=== PATIENT | female | born 1960 | race Caucasian/White ===

== ENCOUNTER 2019-06-15 23:00 | Inpatient (IN) | payer BC, SELFPAY ==
[2019-06-15 23:06] VITALS: BP 170/99; PULSE 107; RESP 25; TEMP 36.8; O2SAT 72; BMI 34.9
--- NOTE | 2019-06-15 23:11 | ED_ITS ---
Entered by Thi Simon, acting as scribe for Keagan Lopez DO HPI - SOB/Dyspnea General: Chief Complaint: Shortness of Breath/Dyspnea Stated Complaint: sob Time Seen by Provider: 06/15/19 23:11 Source: family Mode of arrival: wheelchair Limitations: no limitations History of Present Illness: HPI Narrative: 59 yo f came to the er pov with for sob x 2 days. MD elicited complaint: shortness of breath, cough and chest pain Onset (ago): day(s) (2 days ago) Timing: constant Severity: moderate Exacerbating factors: nothing Relieving factors: nothing Associated symptoms: Reports chest pain and orthopnea; Deny abdominal pain, dizziness, fever(s), nausea, palpitations or vomiting Treatment prior to arrival: none Related Data: Home oxygen amount: none Review of Systems Const: Denies: fever Eyes: Denies: change in vision or blurry vision ENMT: Denies: painful swallowing, swelling of lips/tongue, bleeding gums, dental pain, Change in hearing, nose bleeds, post nasal drip or facial/sinus pain Card: Reports: chest pain and shortness of breath when lying down; Denies: palpitations Resp: Reports: shortness of breath, non-productive cough and wheezing GI: Denies: abdominal pain, nausea or vomiting : Denies: painful urination, urinary frequency, urinary urgency or blood in urine Musc: Denies: neck pain, back pain, redness or joint warmth Skin/Breast: Denies: rash, itching or redness Neuro: Denies: dizziness Psych: Denies: anxiety, visual hallucinations or auditory hallucinations PFSH ED PFSH: Statuses (acute, chronic, etc) shown below reflect problem list status as previously entered and may not be historically accurate Social History Smoking and tobacco status: never smoked Physical Exam Const: COMMON NORMALS: alert GENERAL APPEARANCE: well developed ORIENTA TION/CONSCIOUSNESS: Yes awake, Yes oriented to person, Yes oriented to place and Yes oriented to time HENMT: COMMON NORMALS: normocephalic, external ears normal, external nose normal and moist oral mucous membranes HEAD & SCALP: normocephalic; no scalp tenderness FACE & SINUS: normal facial exam NOSE: external nose normal and no nasal discharge EXTERNAL EAR: Yes external ears normal MOUTH: tongue normal THROAT: posterior oropharynx normal; no peritonsillar mass Eye: COMMON NORMALS: PERRL, EOMs intact bilaterally and conjunctivae normal EYELID: eyelids normal CONJUNCTIVA: Yes conjunctivae normal PUPIL: Yes PERRL Neck/C-Spine: COMMON NORMALS: full ROM GENERAL: No anterior neck swelling and No tracheal deviation CERVICAL SPINE: Yes normal cervical lordosis, No cervical spine tenderness, No step off deformity, No paracervical muscle tenderness and No paracervical muscle spasm Chest: COMMONS NORMALS: inspection of chest normal CHEST: Yes symmetrical chest wall rise and No tenderness Resp: COMMON NORMALS: negative for clear to auscultation bilaterally EFFORT & INSPECTION: Yes tachypneic, Yes respiratory distress, No retractions, Yes uses accessory muscles and No tracheal deviation AUSCULTATION: not clear to auscultation bilaterally, no rhonchi, wheezes and diminished lung sounds Cardio: COMMON NORMALS: negative for regular rate and negative for regular rhythm RATE: abnormal rate RHYTHM: abnormal rhythm HEART SOUNDS: no murmurs PERIPHERAL PULSES: radial pulses present GI: INSPECTION: No abdominal distension AUSCULTATION: No hyperactive bowel sounds and No hypoactive bowel sounds PALPATION: No tender, No guarding and No rigid PERCUSSION: no dullness to percussion and no tympanic to percussion : COMMON NORMALS: Yes no CVA tenderness BLADDER/KIDNEY EXAM: Yes no CVA tenderness Back/Pelvis: COMMON NORMALS: no CVA tenderness PELVIS: Yes no pain with anterior-posterior compression and Yes no pain with lateral compression Neuro: SENSORIUM/ORIENTATION: Yes alert, Yes oriented to person, Yes oriented to place and Yes oriented to time Psych: COMMON NORMALS: mental status grossly normal and speech normal SPEECH: Yes normal speech Skin: COMMON NORMALS: no rashes or lesions noted GENERAL SKIN EXAM: no rashes or lesions noted Course Vital Signs: Vital signs: Vital Signs Temperature 98.3 F 06/15/19 23:06 Pulse Rate 93 06/16/19 02:11 Respiratory Rate 18 06/16/19 02:11 Blood Pressure 151/130 06/16/19 02:11 Pulse Oximetry 100 06/16/19 02:11 MDM - SOB/Dyspnea Lab Data: Labs: Lab Results 01/04/20 01/04/20 01/04/20 Range/Units 23:16 23:46 23:46 WBC 8.1 (4.0-10.0) 10^3/ uL RBC 4.37 (4.1-5.3) 10^6/u L Hgb 12.2 (11.5-15.3) g/dL Hct 38.3 (37.0-47.0) % MCV 87.6 (81-99) fL MCH 27.9 L (28.0-34.0) pg MCHC 31.9 (30.0-36.0) g/dL RDW 13.5 (12.1-15.1) % Plt Count 214 (130-400) 10^3/c mm MPV 11.7 H (7.4-10.4) fL Neut % (Auto) 64.8 % Lymph % (Auto) 26.5 % [place] % (Auto) 4.1 % Eos % (Auto) 2.5 % Baso % (Auto) 1.0 % Neut # (Auto) 5.2 (1.8-7.7) 10^3/u L Lymph # (Auto) 2.1 (0.8-4.8) 10^3/u L [place] # (Auto) 0.3 (0.2-0.9) 10^3/u L Eos # (Auto) 0.2 (0.0-0.8) 10^3/u L Baso # (Auto) 0.1 (0.0-0.1) 10^3/u L Nucleated RBC % (a uto) 0 % Nucleated RBCs # 0.0 /100WBC Sodium 137 (136-145) mmol/L Potassium 3.6 (3.5-5.1) mmol/L Chloride 100 (98-107) mmol/L Carbon Dioxide 21 L (22-29) mmol/L Anion Gap 19.6 H (5-19) BUN 17 (6-20) mg/dL Creatinine 1.0 H (0.5-0.9) mg/dL GFR Calculation 56.7 L (90-130) mL/min Glucose 575 H* (74-109) mg/dL POC Glucose 455 (70-110) mg/dL Lactate (0.5-2.2) mmol/L Calcium 9.3 (8.6-10.0) mg/Dl Total Bilirubin 0.4 (0.15-1.2) mg/dL AST 36 H (0-32) U/L ALT 35 H (0-33) U/L Alkaline Phosphata se 72 (35-105) IU/L Troponin T Baselin e (0-10) ng/mL NT-Pro-B Natriuret Pep 783 H (0-125) pg/mL Total Protein 6.8 (6.6-8.7) g/dL Albumin 4.6 (3.5-5.2) g/dL Globulin 2.2 (1.3-4.6) g/dL Urine Color (Yellow) Urine Appearance (CLEAR) Urine pH (5-7) Ur Specific Gravit y (1.005-1.030) Urine Protein (Negative) Urine Glucose (UA) (Normal) Urine Ketones (Negative) Urine Occult Blood (Negative) Urine Nitrate (Negative) Urine Bilirubin (NEGATIVE) Urine Urobilinogen (Negative) mg/dL Ur Leukocyte Jeana ase (Negative) Urine RBC (0-2) /hpf Urine WBC (0-5) /hpf Ur Squamous Epith Cells (0-5) Urine Bacteria (NONE) 06/15/19 06/15/19 06/16/19 Range/Units 23:46 23:50 00:28 WBC (4.0-10.0) 10^3/ uL RBC (4.1-5.3) 10^6/u L Hgb (11.5-15.3) g/dL Hct (37.0-47.0) % MCV (81-99) fL MCH (28.0-34.0) pg MCHC (30.0-36.0) g/dL RDW (12.1-15.1) % Plt Count (130-400) 10^3/c mm MPV (7.4-10.4) fL Neut % (Auto) % Lymph % (Auto) % [place] % (Auto) % Eos % (Auto) % Baso % (Auto) % Neut # (Auto) (1.8-7.7) 10^3/u L Lymph # (Auto) (0.8-4.8) 10^3/u L [place] # (Auto) (0.2-0.9) 10^3/u L Eos # (Auto) (0.0-0.8) 10^3/u L Baso # (Auto) (0.0-0.1) 10^3/u L Nucleated RBC % (a uto) % Nucleated RBCs # /100WBC Sodium (136-145) mmol/L Potassium (3.5-5.1) mmol/L Chloride (98-107) mmol/L Carbon Dioxide (22-29) mmol/L Anion Gap (5-19) BUN (6-20) mg/dL Creatinine (0.5-0.9) mg/dL GFR Calculation (90-130) mL/min Glucose (74-109) mg/dL POC Glucose (70-110) mg/dL Lactate 2.7 H (0.5-2.2) mmol/L Calcium (8.6-10.0) mg/Dl Total Bilirubin (0.15-1.2) mg/dL AST (0-32) U/L ALT (0-33) U/L Alkaline Phosphata se (35-105) IU/L Troponin T Baselin e 29 H (0-10) ng/mL NT-Pro-B Natriuret Pep (0-125) pg/mL Total Protein (6.6-8.7) g/dL Albumin (3.5-5.2) g/dL Globulin (1.3-4.6) g/dL Urine Color Yellow (Yellow) Urine Appearance Hazy A (CLEAR) Urine pH 5 (5-7) Ur Specific Gravit y 1.010 (1.005-1.030) Urine Protein 2+ H (Negative) Urine Glucose (UA) 4+ H (Normal) Urine Ketones Negative (Negative) Urine Occult Blood 2+ H (Negative) Urine Nitrate Negative (Negative) Urine Bilirubin Neg (NEGATIVE) Urine Urobilinogen Norm (Negative) mg/dL Ur Leukocyte Jeana ase Negative (Negative) Urine RBC 10-15 H (0-2) /hpf Urine WBC 5-10 H (0-5) /hpf Ur Squamous Epith Cells 0-4 H (0-5) Urine Bacteria 2+ H (NONE) Critical Care Time Critical Care Time: Critical Care Time: Yes Total Critical Care Time: 40 Attestation: This case had a high probability of a clinically significant, sudden, or life threatening deterioration of this patient's condition which required my full and direct attention, intervention and personal management. 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
[2019-06-15 23:19] LABS: Glucose Point of Care 455 mg/dL (70-110)
--- NOTE | 2019-06-15 23:23 | XRR_ITS ---
PROCEDURE INFORMATION: Exam: XR Chest, 1 View Exam date and time: 06/15/2019 11:40 PM Age: 59 years old Clinical indication: Chest pain; Additional info: Cp TECHNIQUE: Imaging protocol: XR of the chest Views: 1 view. COMPARISON: No relevant prior studies available. FINDINGS: Lungs: Increased interstitial markings and areas of haziness in the lung bases. Probable minimal Ramin B lines in the right lateral lung base. Slight bilateral perihilar interstitial marking prominence. No consolidation. Pleural space: Minimal fluid in the minor fissure. Possible minimal blunting of the right lateral angle. No pneumothorax. Heart/Mediastinum: No cardiomegaly. Bones/joints: Mild right convexity of the thoracic spine. No visible acute fracture. XR/XR chest 1V portable [id number] IMPRESSION: Findings suggestive of bilateral pulmonary edema. Minimal pleural fluid in at least the minor fissure. No cardiomegaly.
--- NOTE | 2019-06-15 23:23 | ECG_ITS ---
Measurements Intervals [place] Rate: 87 P: -10 WV: 166 QRS: -33 QRSD: 137 T: 120 QT: 408 QTc: 494 SINUS RHYTHM WITH FREQUENT SUPRAVENTRICULAR PREMATURE COMPLEXES LEFT AXIS DEVIATION [QRS AXIS < -30] LEFT BUNDLE BRANCH BLOCK No previous ECG available for comparison Electronically Signed On 06-16-2019 11:13:46 BREAKDOWN WORKER by Shirin Metzger M.D. [id number]
[2019-06-15 23:24] VITALS: PULSE 94; RESP 20; O2SAT 96
[2019-06-15 23:36] VITALS: BP 119/73; PULSE 100; RESP 28; O2SAT 94
[2019-06-15 23:39] VITALS: O2SAT 95
[2019-06-15] MEDS: FUROsemide 10 mg/mL SDV 10mL 80 MG IVP (23:43)
[2019-06-15] MEDS: nitroglycerin 1 gm/inch oint Pkt 1 INCH TOPICAL (23:43)
[2019-06-15 23:58] LABS: Basophils # 0.1 10^3/uL (0.0-0.1); Eosinophils # 0.2 10^3/uL (0.0-0.8); Eosinophils % 2.5 %; Hematocrit 38.3 % (37.0-47.0); Hemoglobin 12.2 g/dL (11.5-15.3); Lymphocytes # 2.1 10^3/uL (0.8-4.8); Lymphocytes % 26.5 %; Mean Corpuscular HGB Conc 31.9 g/dL (30.0-36.0); Mean Corpuscular Hemoglobin 27.9 pg (28.0-34.0); Mean Corpuscular Volume 87.6 fL (81-99); Mean Platelet Volume 11.7 fL (7.4-10.4); Monocytes # 0.3 10^3/uL (0.2-0.9); Monocytes % 4.1 %; Neutrophils # 5.2 10^3/uL (1.8-7.7); Neutrophils % 64.8 %; Nucleated Red Blood Cells % 0 %; Platelet Count 214 10^3/cmm (130-400); Red Blood Count 4.37 10^6/uL (4.1-5.3); Red Cell Distribution Width 13.5 % (12.1-15.1); White Blood Count 8.1 10^3/uL (4.0-10.0)
[2019-06-16] VITALS (12 sets, daily range): BP systolic 99–166; BP diastolic 58–130; PULSE 73–105; RESP 16–19; TEMP 36.4–36.9; O2SAT 94–100; BMI 36.1
[2019-06-16 00:11] LABS: Lactate (Lactic Acid level) 2.7 mmol/L (0.5-2.2)
[2019-06-16 00:16] LABS: Troponin(5th) Baseline 29 ng/mL (0-10)
[2019-06-16 00:22] LABS: Alanine Aminotransferase 35 U/L (0-33); Albumin Level 4.6 g/dL (3.5-5.2); Alkaline Phosphatase 72 IU/L (35-105); Anion Gap 19.6 (5-19); Aspartate Amino Transferase 36 U/L (0-32); Blood Urea Nitrogen 17 mg/dL (6-20); Calcium 9.3 mg/Dl (8.6-10.0); Carbon Dioxide 21 mmol/L (22-29); Chloride 100 mmol/L (98-107); Globulin 2.2 g/dL (1.3-4.6); Glomerular Filtration Rate 56.7 mL/min (90-130); NT Pro B Type Natriuretic Pept 783 pg/mL (0-125); Potassium 3.6 mmol/L (3.5-5.1); Sodium 137 mmol/L (136-145); Total Bilirubin 0.4 mg/dL (0.15-1.2); Total Protein 6.8 g/dL (6.6-8.7)
[2019-06-16 00:29] LABS: Glucose 575 mg/dL (74-109)
[2019-06-16 00:49] LABS: Protein Urine 2+ (Negative); Urine Appearance Hazy (CLEAR); Urine Color Yellow (Yellow); pH Urine 5 (5-7)
[2019-06-16 00:50] LABS: Bilirubin Urine Neg (NEGATIVE); Blood Urine 2+ (Negative); Glucose Urine UA 4+ (Normal); Ketones Urine Negative (Negative); Leukocyte Esterase Urine Negative (Negative); Nitrate Urine Negative (Negative); Urobilinogen Urine Norm (Negative)
[2019-06-16 00:52] LABS: Add Urine Culture? Yes; Bacteria Urine 2+; Squamous Epithelial Cell Urine 0-4 (0-5)
--- NOTE | 2019-06-16 01:23 | ECG_ITS ---
Measurements Intervals [place] Rate: 105 P: [place]: 0 QRS: 18 QRSD: 150 T: 206 QT: 363 QTc: 482 ATRIAL FIBRILLATION WITH RAPID VENTRICULAR RESPONSE LEFT BUNDLE BRANCH BLOCK [120+ ms QRS DURATION, 80+ ms Q/S IN V1/V2, 85+ ms R IN I/aVL/V5/V6] No previous ECG available for comparison Electronically Signed On 06-16-2019 13:30:14 HEEL COVER SOFTENER by Shirin Metzger M.D. [id number] f
[2019-06-16 02:04] LABS: Troponin 5 2HR 70.77 ng/mL (0-10)
[2019-06-16 02:07] LABS: Troponin 5 2HR Delta 41.77 ABS# (0-10)
--- NOTE | 2019-06-16 02:29 | PC.NURSE ---
patient request to take off bipap at this time. per ed physician to do a trial without bipap. patient was taken off bipap by this nurse and placed on NC at 4L/min. patients vital signs are BP: 151/130 HR:87 O2: 95% RR:20
--- NOTE | 2019-06-16 05:09 | USCV_ITS ---
Rachel Malhotra Age: 59 Gender: F : 1960 Exam Date: 06/16/2019 08:24 Ordering Phys: Aliyah Diallo MD Technologist: Debra Hernandez Exam Location: [facility] [place] Indication: CHF BP: 141 / 109 HR: 94 Rhythm: Sinus Technical Quality: Suboptimal MEASUREMENTS (Male / Female) Normal Values 2D ECHO LV Diastolic Diameter PLAX 3.7 cm 4.2 - 5.9 / 3.9 - 5.3 cm LV Systolic Diameter PLAX 2.8 cm LV Chamber Size 4.4 cm IVS Diastolic Thickness 1.5 cm 0.6 - 1.0 / 0.6 - 0.9 cm IVS Systolic Thickness 1.7 cm LVPW Diastolic Thickness 1.1 cm 0.6 - 1.0 / 0.6 - 0.9 cm LVPW Systolic Thickness 1.6 cm RV Chamber Size 2.1 cm LVOT Diameter 1.8 cm LV Ejection Fraction 2D Teich 48.9 % LA Diameter 4.0 cm LA Width 3.0 cm LA Height 5.3 cm RA Width 3.0 cm RA Height 5.0 cm Aorta at Sinotubular Diameter 3.1 cm M-MODE LV Diastolic Diameter MM 5.0 cm 4.2 - 5.9 / 3.9 - 5.3 cm LV Systolic Diameter MM 3.5 cm LV Ejection Fraction MM Teich 56.5 % IVS Diastolic Thickness MM 1.4 cm 0.6 - 1.0 / 0.6 - 0.9 cm IVS Systolic Thickness MM 1.6 cm LVPW Diastolic Thickness MM 1.4 cm 0.6 - 1.0 / 0.6 - 0.9 cm LVPW Systolic Thickness MM 1.6 cm Aortic Annulus Diameter 3.0 cm LA Ao Ratio MM 1.4 MV E Point Septal Separation 0.7 cm DOPPLER AV Peak Velocity 147.0 cm/s LVOT Peak Velocity 106.0 cm/s AV Area Cont Eq vti 1.6 cm squared AV Area Cont Eq pk 1.9 cm squared MV Area PHT 4.1 cm squared Mitral E to A Ratio 1.1 MV E' Velocity 6.0 cm/s Mitral E to MV E' Ratio 21.5 Mitral E to LV E' Lateral Ratio 18.9 Mitral E to LV E' Septal Ratio 25.6 TR Peak Velocity 274.0 cm/s TR Peak Gradient 30.0 mmHg TR Mean Velocity 230.7 cm/s TR Mean Gradient 22.4 mmHg TR Velocity Time Integral 63.4 cm TV Peak E Velocity 89.0 cm/s Right Atrial Pressure 3.0 mmHg Pulmonary Artery Systolic Pressu 33.0 mmHg PV Peak Velocity 107.0 cm/s RV Acceleration Time 0.1 s RV Ejection Time 0.2 s RV AcT/ET 0.4 FINDINGS Left Ventricle Normal left ventricular cavity size. Probably mildly decraesed left ventricular systolic function. The study is inadequate for estimation of regional wall motion abnormality. Abnormal septal motion consistent with conduction abnormality. Right Ventricle Normal right ventricular size and systolic function. Right ventricular systolic pressure 33 mmHg. Right Atrium Normal right atrial size. Right atrial pressure estimated at 3 mm Hg. Left Atrium Normal left atrial size. Mitral Valve Mild mitral annular calcification. No mitral valve stenosis. Mild mitral valve regurgitation. Aortic Valve Structurally normal trileaflet aortic valve. No aortic valve stenosis. No aortic valve regurgitation. Tricuspid Valve Structurally normal tricuspid valve. No tricuspid valve stenosis. Trace to mild tricuspid valve regurgitation. Pulmonic Valve Structurally normal pulmonic valve. No pulmonary valve stenosis. Pericardium No pericardial effusion. Aorta CONCLUSIONS 1. Normal left ventricular cavity size. Probably mildly decraesed left ventricular systolic function. The study is inadequate for estimation of regional wall motion abnormality. Abnormal septal motion consistent with conduction abnormality. 2. Normal right ventricular size and systolic function. 3. Mild mitral valve regurgitation. 4. Pulmonary artery pressure estimated at 33 mm Hg. 5. Recommend repeat study with ultrasound enhancing agent. Shirin Metzger MD (Electronically Signed) Final Date: 16 June 2019 11:48 S
--- NOTE | 2019-06-16 05:16 | PM.HP ---
Providers/Chief Complaint Admitting Physician: Aliyah Diallo MD Primary Care Provider: Chalino Keene MD Chief Complaint: sob History of Present Illness Rachel Malhotra is a 59 year old female who has chronic medical condition of type 2 diabetes insulin-dependent came in with chief complaint of shortness of breath. Patient is stating that her symptoms started 24 hours ago when she started having cough which was initially dry, she felt sick to her stomach and she started having shortness of breath at rest and on exertion, she was feeling very tired, she is taking more naps in the morning as compared to her previous daily routine, recently she has been noticing some leg cramps as well. She is experience orthopnea, PND along with shortness of breath. She is denying any chest pain, dysuria, abdominal pain, headache, change in her bowel habits but she is feeling very tired and lethargic these days. She feels better at the end of the day Diagnostics in ER showed normal hemodynamics but she was hypoxic and she was requiring 3 to 4 L of oxygen, her BNP was 575, she was in atrial fibrillation without RVR heart rate was fluctuating between 95 105, blood pressure 170/100 she was given 1 inch of nitro paste and she was given 1 dose of Lasix Review of Systems Const: Reports: chills, body aches, fatigue, malaise, daytime sleepiness and snoring Eyes: Denies: change in vision ENMT: Denies: throat pain Card: Reports: irregular heart rhythm; Denies: chest pain Resp: Reports: shortness of breath and non-productive cough GI: Denies: abdominal pain, nausea or vomiting : Denies: flank pain, difficulty urinating or urinary frequency Musc: Denies: neck pain or back pain Skin/Breast: Denies: rash Neuro: Denies: headache Psych: Denies: anxiety or depression Endo: Reports: excessive urination, excessive thirst and tired all the time Servando/Lymph: Denies: easy bruising All/Imm: Denies: hives Medications/Allergies Home Medications Medication Instructions Recorded Confirmed Last Taken Type guaifenesin [Mucinex] 600 mg PO Q12H PRN 06/16/19 06/16/19 06/15/19 12:00 History ibuprofen 200 mg PO Q6H PRN 06/16/19 06/16/19 06/15/19 12:00 History 800 MG insulin NPH and regular human 40 unit SUBCUT BID 06/16/19 06/16/19 06/14/19 20:00 History [Novolin 70/30 U-100 Insulin] Allergies Allergy/AdvReac Type Severity Reaction Status Date / Time lisinopril AdvReac Intermediate Severe Verified 06/16/19 04:09 Cough PFSH Acute PFSH: Statuses (acute, chronic, etc) shown below reflect problem list status as previously entered and may not be historically accurate Medical History (Updated 06/16/19 @ 05:22 by Aliyah Diallo MD) Insulin dependent diabetes mellitus (Acute) Obesity (Acute) Surgical History (Updated 06/16/19 @ 05:20 by Aliyah Diallo MD) No pertinent past surgical history (Acute) Family History (Updated 06/16/19 @ 05:20 by Aliyah Diallo MD) Other Diabetes Hypertension Social History (Updated 06/16/19 @ 05:20 by Aliyah Diallo MD) Smoking and tobacco status: never smoked Alcohol intake: never Substance/Drug Use: never Lives independently: No Household members: spouse Vitals/I&O/Wt Last Vital Signs Temp 98.3 F 06/16/19 03:46 Pulse 105 H 06/16/19 04:12 Resp 19 H 06/16/19 04:12 BP 160/90 06/16/19 03:46 Pulse Ox 94 06/16/19 04:12 Weight last 48 hrs Weight 104.462 kg Weight 104.326 kg Physical Exam Narrative: EXAM NARRATIVE: She was sitting at the bedside without any active discomfort saturating well on 2 L nasal cannula, Variable S1-S2 no active murmur, atrial fibrillation heart rate 95 She has mild signs of heart failure with bilateral lower extremity edema trace 1+ Her lungs had mild crackles at the bases otherwise clear to auscultation without active wheezing Abdomen soft nontender nondistended, was obesity, bowel sounds present Neurological nonfocal exam no active deficit Mood appropriate mood and affect Skin has no active ulcers Data Micro: Micro: Microbiology 06/15/19 23:50 Blood Culture - Pr eliminary Blood SPECIMEN [facility] 06/15/19 23:46 Blood Culture - Pr eliminary Blood SPECIMEN [facility] A&P Assessment and plan (1) Congestive heart failure: Status: Acute Code(s): I50.9 - Heart failure, unspecified (2) Insulin dependent diabetes mellitus: Status: Acute Code(s): E11.9 - Type 2 diabetes mellitus without complications; Z79.4 - termite inspector (current) use of insulin (3) Hyperglycemia: Status: Acute Code(s): R73.9 - Hyperglycemia, unspecified (4) Fatigue: Status: Acute Code(s): R53.83 - Other fatigue Additional A&P Information Additional A&P Information: Acute onset congestive heart failure exacerbation Most likely secondary to poorly controlled diabetes and hypertension She is na?ve to Lasix I would use 40 mg of Lasix p.o. every day Echo in the morning TSH check New onset atrial fibrillation without RVR Will use low-dose metoprolol because of her heart rate fluctuate between 95-1 10 Her Bib vascular score is 4, I would use Eliquis 5 mg twice a day Fatigue and tired most likely secondary to DEYANIRA and poorly controlled diabetes We will check A1c TSH lipid panel, She is only taking NovoLog 50 units twice a day for her diabetes She has not been following up with PCP because of her insurance issues Undiagnosed hypertension Currently her systolic blood pressure is consistently about 180 I will start her on Lasix and lisinopril for now and monitor and adjust medications accordingly Obesity with possible DEYANIRA: She will need outpatient sleep study Full code DVT prophylaxis not needed I am starting Eliquis Attestations Medical Necessity Statement*: Anticipating her stay to cross and more than 2 nights because of new onset congestive heart failure atrial fibrillation undiagnosed case of hypertension poorly controlled diabetes Time Spent in Patient Care: (>than 50% of time spent in counselling and/or direct pt care on unit). 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
--- NOTE | 2019-06-16 05:23 | ECG_ITS ---
Measurements Intervals [place] Rate: 91 P: -3 [place]: 148 QRS: -8 QRSD: 146 T: 187 QT: 420 QTc: 517 POSSIBLY ATRIAL FIBRILLATION LEFT BUNDLE BRANCH BLOCK No previous ECG available for comparison Electronically Signed On 06-16-2019 13:30:07 AUTHORIZATION REPRESENTATIVE by Shirin Metzger M.D. [id number]
[2019-06-16 06:43] LABS: D Dimer 1.37 ug/mIFEU (0-0.59)
[2019-06-16 07:03] LABS: Chol HDL Ratio 6.02 mg/dL (0.0-4.40); Cholesterol 253 mg/dL (0-200); HDL Cholesterol 42 mg/dL (60-100); LDL Cholesterol Calculated 185 mg/dL (50-129); Thyroid Stimulating Hormone 2.88 uIU/mL (0.27-4.20); Triglycerides 132 mg/dL (0-150)
[2019-06-16 07:38] LABS: Troponin 5 6HR 90.87 ng/L (0-10)
[2019-06-16 07:39] LABS: Glucose Point of Care 224 mg/dL (70-110)
--- NOTE | 2019-06-16 07:54 | P.PN_ITS ---
Subjective Subjective: Interval history: H&P and overnight labs reviewed. This morning patient states she feels much better as far as her breathing is concerned. She does complain to me that she is experiencing central chest pressure which is continuous for the last 3 days. There are no apparent exacerbating or relieving factors. Is not significantly relieved by nitro. Not worsened on exercise. Her 2-hour troponin and 6-hour troponin delta are increased no trending down. I do not see any acute ST-T changes on her EKG. She is currently able to move from bed to commode without significant discomfort. An echocardiogram is currently in progress. Medications: Reviewed: Yes Vitals/I&O/Wt Last Vital Signs Temp 97.8 F 06/16/19 07:15 Pulse 97 06/16/19 07:15 Resp 17 06/16/19 07:15 BP 141/109 06/16/19 07:15 Pulse Ox 98 06/16/19 07:15 Weight last 48 hrs Weight 104.462 kg Weight 104.326 kg Physical Exam Narrative: EXAM NARRATIVE: General awake alert and oriented. CVS S1-S2 is normal Respiratory system bilateral inframaxillary Rales are present Extremities 1+ pitting edema around the ankles Abdomen soft nondistended nontender bowel sounds are positive Data Micro: Micro: Microbiology 06/15/19 23:50 Blood Culture - Pr eliminary Blood SPECIMEN [facility] 06/15/19 23:46 Blood Culture - Pr eliminary Blood SPECIMEN [facility] Other Data: Attestation for Other Data: I personally reviewed and interpreted the following: Other data: Chest x-ray with bilateral pulmonary edema. A&P Assessment and plan (1) Congestive heart failure: Status: Acute Code(s): I50.9 - Heart failure, unspecified (2) Insulin dependent diabetes mellitus: Status: Acute Code(s): E11.9 - Type 2 diabetes mellitus without complications; Z79.4 - long term care social worker (current) use of insulin (3) Hyperglycemia: Status: Acute Code(s): R73.9 - Hyperglycemia, unspecified (4) Fatigue: Status: Acute Code(s): R53.83 - Other fatigue Additional A&P Information Additional A&P Information: Congestive heart failure Most likely secondary to poorly controlled diabetes and hypertension Continue Lasix 40 mg IV daily. Echocardiogram done this morning report is pending. New onset atrial fibrillation without RVR Continue metoprolol for rate control Continue Eliquis for anticoagulation Given new onset A. fib, elevated troponin and atypical chest pain we will go ahead and obtain a cardiac stress test tomorrow morning. Diabetes mellitus: Continue insulin Lantus and NovoLog sliding scale Undiagnosed hypertension Started on lisinopril for now and monitor and adjust medications accordingly Full code DVT prophylaxis Eliquis Attestations Medical Necessity Statement*: Management and work-up of new onset A. fib, uncontrolled hypertension, cardiac stress test tomorrow morning. Coding Level of Care Code Acute Composition Worker for [facility] Fwd Diagnoses Congestive heart failure I50.9 Insulin dependent diabetes mellitus E11.9; Z79.4 Hyperglycemia R73.9 Fatigue R53.83
[2019-06-16] MEDS: FUROsemide 10 mg/mL SDV 4mL 40 MG IVP (08:35)
[2019-06-16 08:51] LABS: Estmated Average Glucose 306; Hemoglobin A1C 12.3 % (4.0-6.0)
[2019-06-16 09:02] LABS: Basophils # 0.1 10^3/uL (0.0-0.1); Basophils % 0.8 %; Eosinophils # 0.2 10^3/uL (0.0-0.8); Eosinophils % 1.3 %; Lymphocytes % 16.7 %; Mean Corpuscular HGB Conc 33.3 g/dL (30.0-36.0); Mean Corpuscular Hemoglobin 28.2 pg (28.0-34.0); Mean Corpuscular Volume 84.5 fL (81-99); Mean Platelet Volume 11.7 fL (7.4-10.4); Monocytes # 0.6 10^3/uL (0.2-0.9); Monocytes % 5.4 %; Neutrophils % 75.1 %; Nucleated Red Blood Cells % 0 %; Platelet Count 238 10^3/cmm (130-400); Red Blood Count 4.26 10^6/uL (4.1-5.3); Red Cell Distribution Width 13.4 % (12.1-15.1)
[2019-06-16 09:17] LABS: Alanine Aminotransferase 33 U/L (0-33); Albumin Level 4.6 g/dL (3.5-5.2); Alkaline Phosphatase 74 IU/L (35-105); Anion Gap 18.6 (5-19); Aspartate Amino Transferase 31 U/L (0-32); Blood Urea Nitrogen 17 mg/dL (6-20); Calcium 9.6 mg/Dl (8.6-10.0); Carbon Dioxide 24 mmol/L (22-29); Chloride 98 mmol/L (98-107); Globulin 2.1 g/dL (1.3-4.6); Glomerular Filtration Rate 64.1 mL/min (90-130); Glucose 298 mg/dL (74-109); Potassium 3.6 mmol/L (3.5-5.1); Sodium 137 mmol/L (136-145); Total Bilirubin 0.4 mg/dL (0.15-1.2); Total Protein 6.7 g/dL (6.6-8.7)
[2019-06-16 11:12] LABS: Glucose Point of Care 181 mg/dL (70-110)
[2019-06-16] MEDS: apixaban 5 mg Tablet PO ×2 (11:12→17:47)
[2019-06-16] MEDS: metoprolol tartrate 25 mg Tablet 12.5 MG PO ×2 (11:13→17:48)
[2019-06-16] MEDS: nitroglycerin 1 gm/inch oint Pkt 1 INCH TOPICAL ×3 (11:14→22:14)
[2019-06-16] MEDS: aspirin 325 mg Tablet PO (11:14)
[2019-06-16 16:40] LABS: Glucose Point of Care 196 mg/dL (70-110)
--- NOTE | 2019-06-16 17:30 | PC.PT ---
PT note; chart states patient troponin levels increasing, and patient scheduled for stress test tomorrow a.m., evaluation deferred, until after that
[2019-06-16 21:42] LABS: Glucose Point of Care 263 mg/dL (70-110)
[2019-06-17] VITALS (8 sets, daily range): BP systolic 97–126; BP diastolic 53–77; PULSE 67–80; RESP 14–22; TEMP 36.6–36.9; O2SAT 96–97
[2019-06-17 04:56] LABS: Basophils # 0.1 10^3/uL (0.0-0.1); Eosinophils # 0.3 10^3/uL (0.0-0.8); Eosinophils % 3.2 %; Hematocrit 34.5 % (37.0-47.0); Hemoglobin 11.3 g/dL (11.5-15.3); Lymphocytes # 2.9 10^3/uL (0.8-4.8); Lymphocytes % 32.6 %; Mean Corpuscular HGB Conc 32.8 g/dL (30.0-36.0); Mean Corpuscular Hemoglobin 28.9 pg (28.0-34.0); Mean Corpuscular Volume 88.2 fL (81-99); Mean Platelet Volume 10.9 fL (7.4-10.4); Monocytes # 0.6 10^3/uL (0.2-0.9); Monocytes % 6.6 %; Neutrophils # 4.9 10^3/uL (1.8-7.7); Nucleated Red Blood Cells % 0 %; Platelet Count 212 10^3/cmm (130-400); Red Blood Count 3.91 10^6/uL (4.1-5.3); Red Cell Distribution Width 13.5 % (12.1-15.1); White Blood Count 8.8 10^3/uL (4.0-10.0)
[2019-06-17 05:11] LABS: Alanine Aminotransferase 25 U/L (0-33); Albumin Level 3.9 g/dL (3.5-5.2); Alkaline Phosphatase 70 IU/L (35-105); Anion Gap 14.9 (5-19); Aspartate Amino Transferase 21 U/L (0-32); Blood Urea Nitrogen 29 mg/dL (6-20); Calcium 9.2 mg/Dl (8.6-10.0); Carbon Dioxide 28 mmol/L (22-29); Chloride 96 mmol/L (98-107); Chol HDL Ratio 6.14 mg/dL (0.0-4.40); Cholesterol 221 mg/dL (0-200); Globulin 2.9 g/dL (1.3-4.6); Glomerular Filtration Rate 50.8 mL/min (90-130); Glucose 301 mg/dL (74-109); HDL Cholesterol 36 mg/dL (60-100); LDL Cholesterol Calculated 152 mg/dL (50-129); LDL HDL Ratio 4.22 RATIO (0.00-3.22); Potassium 3.9 mmol/L (3.5-5.1); Sodium 135 mmol/L (136-145); Total Bilirubin 0.5 mg/dL (0.15-1.2); Total Protein 6.8 g/dL (6.6-8.7); Triglycerides 164 mg/dL (0-150)
--- NOTE | 2019-06-17 06:41 | ECG_ITS ---
NAME OF STUDY: LEXISCAN SESTAMIBI STRESS TEST INDICATION: Chest Pain NOTE: Please note that this is the electrocardiogram portion of the Lexiscan/Sestamibi stress test. The perfusion scan will be documented separately. DATA: Baseline heart rate was 66 beats per minute. Baseline blood pressure was 131/94 millimeters of mercury. Target heart rate was 161. Maximum heart rate achieved was 80. which was 49 % of the predicted target heart rate. Maximum blood pressure was 142/94 millimeters of mercury. The reason for ending the test was completion of the protocol. The patient did not experience any symptoms. ELECTROCARDIOGRAM: BASELINE: Sinus rhythm. Normal axis.Left ventricular branch block. EXERCISE: After Lexiscan injection, no ST-T changes suggestive of ischemic noted. No arrhythmia noted. CONCLUSION: Please note due to baseline abnormality of the EKG specificity and sensitivity of the EKG portion of LexiScan MIBI stress test will be low 1. EKG not suggestive of ischemia 2. Lexiscan injection unremarkable. 3. Perfusion scan will be documented separately. Electronically Signed On 06-17-2019 18:12:25 ARMHOLE PRESSER by Aliyah Saunders M.D. [email or web address]
--- NOTE | 2019-06-17 06:43 | NMCV_ITS ---
NM MIBI/MIBI Stress/Rest [id number] Rachel Malhotra Age: 59 Gender: F : 1960 Exam Date: 06/17/2019 07:34 Ordering Phys: Mari Bowers MD Technologist: CECILIO Roper Exam Location: [facility] Indications: Chest Pain STRESS TEST Please see separate stress test report in [facility] for full findings IMAGE PROTOCOL Rest/Stress 1 Lexiscan Day Radiopharmaceutical Dose (mCi) Administration Site Administered by Rest: Tc-99m 10.7 IV CECILIO Roper Sestamibi Stress:Tc-99m 32.3 IV CECILIO Roper Sestamibi Rest: 17-Jun-2019 60 Discovery 630 Stress: 17-Jun-2019 60 Discovery 630 0.4mg Lexiscan. Supine position only as patient was unable to lay prone. SPECT RESULTS Technical Quality: Good Raw Data Analysis: Normal, Breast attenuation, Soft tissue attenuation Image Corrections: No attenuation or motion correction applied Summed Stress Score: 4 Summed Rest Score: 0 Summed Difference Score: 4 PERFUSION FINDINGS Medium-size area of patchy decreased tracer uptake noted in basal to mid anterior wall which showed mild to moderate reversibility suggestive of ischemia in LAD territory. Medium-size area of patchy decreased tracer uptake noted in basal to distal inferior wall on rest images which improved over stress images suggestive of artifact. Please note that patient was not able to perform the prone images therefore cannot adjust for artifact. FUNCTIONAL RESULTS (calculated via Gated SPECT) Stress Image LV EF (%): 52 Stress EDV (mL):113 TID: 0.96 Stress ESV (mL):54 Rest Image LV EF (%): 52 FUNCTIONAL FINDINGS: There is normal left ventricular systolic function. IMPRESSIONS Medium-size area of old myocardial infarction versus scarring surrounded by mild to moderate reversibility suggestive of michael-infarct ischemia in LAD territory. Please note that patient was not able to perform the prone images therefore cannot rule out artifact. Clinical correlation advised. EKG segment will be documented separately. Aliyah Saunders MD (Electronically Signed) Final Date: 17 June 2019 12:26 S
[2019-06-17 08:08] LABS: Glucose Point of Care 313 mg/dL (70-110)
--- NOTE | 2019-06-17 08:34 | SUR.PREOP ---
Patient reports no pain or discomfort prior to the start of the procedure.
[2019-06-17] MEDS: regadenoson 0.4 Mg/5 ml Syringe IVP (08:36)
[2019-06-17] MEDS: metoprolol tartrate 25 mg Tablet 12.5 MG PO ×2 (09:27→17:56)
[2019-06-17] MEDS: apixaban 5 mg Tablet PO (09:27)
[2019-06-17] MEDS: FUROsemide 10 mg/mL SDV 4mL 40 MG IVP (09:27)
--- NOTE | 2019-06-17 10:46 | P.PN_ITS ---
Subjective Subjective: Interval history: No new complaints today. Symptomatically feels much improved. No current shortness of breath. Underwent cardiac stress test this morning, results are pending at this time. Medications: Reviewed: Yes Vitals/I&O/Wt Last Vital Signs Temp 98.3 F 06/17/19 08:00 Pulse 80 06/17/19 08:45 Resp 14 06/17/19 04:00 BP 120/77 06/17/19 08:45 Pulse Ox 96 06/17/19 04:00 06/16/19 06/17/19 06/17/19 22:59 06:59 14:59 Intake Total 350 / 750 Output Total 750 / 750 500 / 1250 Balance -400 / 0 -500 / -500 Weight last 48 hrs Weight 104.009 kg Weight 104.462 kg Weight 104.462 kg Weight 104.326 kg Physical Exam Narrative: EXAM NARRATIVE: General awake alert and oriented. CVS S1-S2 is normal Respiratory system bilateral inframaxillary Rales are present but improved since previous exam. Extremities no pitting edema around the ankles Abdomen soft nondistended nontender bowel sounds are positive Data Micro: Micro: Microbiology 06/16/19 00:28 Urine Culture - Pr eliminary Urine,Clean Catch 06/15/19 23:50 Blood Culture - Pr eliminary Blood NEGATIVE TO TREE E 06/15/19 23:46 Blood Culture - Pr eliminary Blood NEGATIVE TO TREE E A&P Assessment and plan (1) Congestive heart failure: Status: Acute Code(s): I50.9 - Heart failure, unspecified (2) Insulin dependent diabetes mellitus: Status: Acute Code(s): E11.9 - Type 2 diabetes mellitus without complications; Z79.4 - half-way (current) use of insulin (3) Hyperglycemia: Status: Acute Code(s): R73.9 - Hyperglycemia, unspecified (4) Fatigue: Status: Acute Code(s): R53.83 - Other fatigue Additional A&P Information Additional A&P Information: Congestive heart failure Continue Lasix 40 mg IV daily. Continue metoprolol and lisinopril. Echocardiogram unable to assess for regional wall motion abnormalities. Ejection fraction not mention. New onset atrial fibrillation without RVR. Heart rate running between 70-90. Continue metoprolol for rate control Continue Eliquis for anticoagulation Given new onset A. fib, multiple risk factors , elevated troponin and atypical chest pain we will go ahead and obtain a cardiac stress test tomorrow morning. Diabetes mellitus: Continue insulin Lantus and NovoLog sliding scale Undiagnosed hypertension Started on lisinopril for now and monitor and adjust medications accordingly Full code DVT prophylaxis Kurt Quintana Medical Necessity Statement*: Patient is admitted for management of congestive heart failure pending cardiac stress testing today Coding Level of Care Code Acute Water Team Leader for [facility] Jody Diagnoses Congestive heart failure I50.9 Insulin dependent diabetes mellitus E11.9; Z79.4 Hyperglycemia R73.9 Fatigue R53.83
[2019-06-17 11:20] LABS: Glucose Point of Care 310 mg/dL (70-110)
[2019-06-17] MEDS: aspirin 81 mg Chew Tablet PO (12:10)
--- NOTE | 2019-06-17 14:35 | PC.PT ---
PT/ report she is independent with transfers and gait short distances. Pt feels that she is at previous functional level. No physical therapy required at this time. Reviewed HEP. DCPT
[2019-06-17 17:03] LABS: Glucose Point of Care 244 mg/dL (70-110)
--- NOTE | 2019-06-17 20:03 | PM.CONSULT ---
Providers/Reason For Consult Consulting Physican/Specialty*: Cardiology Reason for Consult*: New onset of heart failure, abnormal stress test Attending Physician: Mari Bowers MD Primary Care Provider: Chalino Keene MD History of Present Illness History of Present Illness Rachel Malhotra is a 59 year old female Admitted with new onset A. fib, Decompensated diastolic heart failure newly onset, History of long-standing diabetes mellitus and history of intermittent chest pain Underwent stress test today nuclear part was suggestive of ischemia in LAD territory however patient was not able to perform the prone images therefore artifact couldn't be ruled out. According to the patient she was in her usual state of health until a few days ago when she started gaining weight and anticoagulated almost 30 pounds. She also noticed worsening of shortness of breath along with PND orthopnea lower extremity edema. Due to irregularity of the heartbeat and because of the fact she couldn't breathe she decided to come to the hospital. She was admitted and diuresed with IV Lasix. She was converted back into sinus rhythm. She was started on anticoagulation and as a part of investigation for chest pain she had a stress test which turned out to be abnormal. It is the reason we have been asked to come and see her. Review of Systems Const: Reports: chills, body aches, fatigue, malaise, daytime sleepiness and snoring; Denies: fever Eyes: Denies: change in vision or blurry vision ENMT: Denies: throat pain, painful swallowing, swelling of lips/tongue, bleeding gums, dental pain, change in hearing, nose bleeds, post nasal drip or facial/sinus pain Card: Reports: irregular heart rhythm and shortness of breath when lying down; Denies: chest pain or palpitations Resp: Reports: shortness of breath, non-productive cough and wheezing GI: Denies: abdominal pain, nausea or vomiting : Denies: flank pain, difficulty urinating, painful urination, urinary frequency, urinary urgency or blood in urine Musc: Denies: neck pain, back pain, redness or joint warmth Skin/Breast: Denies: rash, itching or redness Neuro: Denies: headache or dizziness Psych: Denies: anxiety, depression, visual hallucinations or auditory hallucinations Endo: Reports: excessive urination, excessive thirst and tired all the time Servando/Lymph: Denies: easy bruising All/Imm: Denies: hives Meds/Allergies Home Medications and Allergies Home Medications Medication Instructions Recorded Confirmed Type guaifenesin [Mucinex] 600 mg PO Q12H PRN 06/16/19 06/16/19 History ibuprofen 200 mg PO Q6H PRN 06/16/19 06/16/19 History insulin NPH and regular human 40 unit SUBCUT BID 06/16/19 06/16/19 History [Novolin 70/30 U-100 Insulin] Allergies Allergy/AdvReac Type Severity Reaction Status Date / Time lisinopril AdvReac Intermediate Severe Verified 06/16/19 04:09 Cough Current Medications Current Medications Generic Name Dose Route Start Last Admin Trade Name Freq PRN Reason Stop Dose Admin Aspirin 81 mg 06/17/19 10:30 06/17/19 12:10 Aspirin Chewable PO 81 mg DAILY FAITH Administration Furosemide 40 mg 06/16/19 08:00 06/17/19 09:27 Lasix IVP 40 mg Q24H FAITH Administration Insulin Aspart 0 unit 06/16/19 08:00 06/17/19 17:56 Novolog SUBCUT 8 unit TIDWM FAITH Administration Protocol Lisinopril 5 mg 06/16/19 09:00 06/17/19 09:28 Prinivil PO Not Given DAILY FAITH Metoprolol Tartrate 12.5 mg 06/16/19 09:00 06/17/19 17:56 Lopressor PO 12.5 mg BID FAITH Administration Nitroglycerin 1 inch 06/16/19 04:12 06/17/19 17:26 Nitro-Bid TOPICAL Not Given Q6H FAITH PFSH Acute PFSH: Statuses (acute, chronic, etc) shown below reflect problem list status as previously entered and may not be historically accurate Medical History Insulin dependent diabetes mellitus (Acute) Obesity (Acute) Surgical History No pertinent past surgical history (Acute) Family History Other Diabetes Hypertension Social History Smoking and tobacco status: never smoked Alcohol intake: never Substance/Drug Use: never Lives independently: No Household members: spouse Vitals/I&O/Wt Last Vital Signs Temp 98.0 F 06/17/19 19:18 Pulse 75 06/17/19 19:18 Resp 20 H 06/17/19 19:18 BP 116/59 06/17/19 19:18 Pulse Ox 96 06/17/19 19:18 06/17/19 06/17/19 06/17/19 06:59 14:59 22:59 Intake Total 420 / 420 Output Total 500 / 1250 Balance -500 / -500 420 / 420 Weight last 48 hrs Weight 228 lb 14.4 oz Weight 229 lb 4.8 oz Weight 230 lb 4.8 oz Weight 230 lb 4.8 oz Weight 230 lb Physical Exam Narrative: EXAM NARRATIVE: GENERAL: Patient is alert, awake and oriented x3. NECK: No jugular vein distension. HEENT: No cyanosis. No icterus. No pallor. HEART: Regular S1 and S2. No murmur, rub or gallop. LUNGS: Basal to mid inspiratory crackles bilaterally. ABDOMEN: Soft, nontender and nondistended. Positive bowel sounds. No guarding, rebound or tenderness. CENTRAL NERVOUS SYSTEM: Grossly nonfocal. EXTREMITIES: Lower extremities without edema bilaterally. Data Micro: Micro: Microbiology 06/16/19 00:28 Urine Culture - Pr eliminary Urine,Clean Catch 06/15/19 23:50 Blood Culture - Pr eliminary Blood NEGATIVE TO TREE E 06/15/19 23:46 Blood Culture - Pr eliminary Blood NEGATIVE TO TREE E A&P Assessment and plan (1) Congestive heart failure: Patient presented with new onset of diastolic decompensated heart failure. She was diuresed with IV Lasix. She is feeling much better however still has some room to improve. Once euvolemic which hopefully in 24-48 hours we will take her to the Weight Loss Consultant if creatinine remains stable. At this point I will discontinue Eliquis and bridge her with Lovenox for possible angiogram. Status: Acute Code(s): I50.9 - Heart failure, unspecified (2) Abnormal cardiovascular stress test: Patient has normal stress test in terms of perfusion scan. She was not able to lay on her belly therefore cannot rule out artifact since she is moderate risk for obstructive coronary artery disease and in the face of new onset of heart failure with chest pain now abnormal stress test we think that she should be further explored with left heart catheterization. Patient has been explained all risks benefits and alternative for the procedure. She would like to proceed with it. We will examine her in the morning if she remains euvolemic and creatinine is fine we will proceed angiogram tomorrow. Status: Acute Code(s): R94.39 - Abnormal result of other cardiovascular function study (3) Atrial fibrillation and flutter: Patient is sinus rhythm continue current regimen. Hold EliOnstream Mediajuancarlos for possible angiogram tomorrow. Status: Acute Code(s): I48.91 - Unspecified atrial fibrillation; I48.92 - Unspecified atrial flutter Coding Level of Care Code Acute Financial Sales Manager for [facility] Diagnoses Congestive heart failure I50.9 Abnormal cardiovascular stress test R94.39 Atrial fibrillation and flutter I48.91; I48.92
[2019-06-17 21:25] LABS: Basophils # 0.1 10^3/uL (0.0-0.1); Basophils % 0.8 %; Eosinophils # 0.3 10^3/uL (0.0-0.8); Eosinophils % 2.5 %; Hematocrit 33.9 % (37.0-47.0); Hemoglobin 11.1 g/dL (11.5-15.3); Lymphocytes # 2.8 10^3/uL (0.8-4.8); Lymphocytes % 27.4 %; Mean Corpuscular HGB Conc 32.7 g/dL (30.0-36.0); Mean Corpuscular Hemoglobin 29.1 pg (28.0-34.0); Mean Corpuscular Volume 88.7 fL (81-99); Mean Platelet Volume 11.7 fL (7.4-10.4); Monocytes # 0.8 10^3/uL (0.2-0.9); Monocytes % 7.9 %; Neutrophils # 6.2 10^3/uL (1.8-7.7); Neutrophils % 60.8 %; Nucleated Red Blood Cells % 0 %; Platelet Count 209 10^3/cmm (130-400); Red Blood Count 3.82 10^6/uL (4.1-5.3); Red Cell Distribution Width 13.3 % (12.1-15.1); White Blood Count 10.2 10^3/uL (4.0-10.0)
[2019-06-17 21:28] LABS: Anion Gap 14.1 (5-19); Blood Urea Nitrogen 33 mg/dL (6-20); Calcium 9.4 mg/Dl (8.6-10.0); Carbon Dioxide 29 mmol/L (22-29); Chloride 92 mmol/L (98-107); Glomerular Filtration Rate 56.7 mL/min (90-130); Glucose 279 mg/dL (74-109); Potassium 4.1 mmol/L (3.5-5.1); Sodium 131 mmol/L (136-145)
[2019-06-17 21:32] LABS: Glucose Point of Care 280 mg/dL (70-110)
[2019-06-17] MEDS: insulin glargine 100 units/1 mL 10 UNIT SUBCUT (22:03)
[2019-06-18] VITALS (51 sets, daily range): BP systolic 94–145; BP diastolic 54–122; PULSE 65–86; RESP 6–20; TEMP 36.3–36.8; O2SAT 92–100
--- NOTE | 2019-06-18 02:04 | P.TS_ITS ---
Transfer Summary Providers Date of Admission: 06/16/19 01:10 Date of Discharge: 06/18/19 Attending Provider at Admission: Aliyah Diallo MD Attending Provider at Transfer: Mari Bowers MD Primary Care Provider: Chalino Keene MD Anticipated Date of Transfer: Anticipated date of transfer: 06/18/19 Receiving Facility & Provider: Receiving Provider: [] Receiving facility: [] Diagnoses at Discharge Discharge Diagnosis (1) Congestive heart failure: Status: Acute (2) Abnormal cardiovascular stress test: Status: Acute (3) Atrial fibrillation and flutter: Status: Acute Reason for Visit Reason for Visit: Reason For Visit: sob TS Data Data Completed and Pending: Completed Studies During Hospitalization Category Date Time Status Sestamibi Stress Test Request Routi ne Exams 06/17/19 06:41 Completed XR chest 1V haroon ble [id number] Stat Exams 06/15/19 23:23 Completed NM myocardial per fusion stress rest [NM dorys perf SPEC T Nuc Med 06/17/19 06:43 Completed r&s* [id number]] Routi ne CV echo complete* [id number] Routine Ultrasound 06/16/19 05:09 Completed Pending at discharge Category Date Time Status Sestamibi Stress Test Request Routi ne Exams 06/16/19 10:01 Stop Req Blood Culture Sta t Lab 06/15/19 23:50 Results Sputum Culture an d Gram Stain Stat Lab 06/15/19 23:23 Uncollected Urine Culture Sta t Lab 06/16/19 00:28 Results Labs from last 24 hours 06/17/19 06/17/19 06/17/19 21:26 20:57 20:57 WBC 10.2 H RBC 3.82 L Hgb 11.1 L Hct 33.9 L MCV 88.7 MCH 29.1 MCHC 32.7 RDW 13.3 Plt Count 209 MPV 11.7 H Neut % (Auto) 60.8 Lymph % (Auto) 27.4 Ray % (Auto) 7.9 Eos % (Auto) 2.5 Baso % (Auto) 0.8 Neut # (Auto) 6.2 Lymph # (Auto) 2.8 Ray # (Auto) 0.8 Eos # (Auto) 0.3 Baso # (Auto) 0.1 Nucleated RBC % (a uto) 0 Nucleated RBCs # 0.0 Sodium 131 L Potassium 4.1 Chloride 92 L Carbon Dioxide 29 Anion Gap 14.1 BUN 33 H Creatinine 1.0 H GFR Calculation 56.7 L Glucose 279 H POC Glucose 280 Calcium 9.4 Total Bilirubin AST ALT Alkaline Phosphata se Total Protein Albumin Globulin Triglycerides Cholesterol LDL Cholesterol, C alc HDL Cholesterol LDL/HDL Ratio Cholesterol/HDL Ra jess 06/17/19 06/17/19 06/17/19 16:44 10:57 07:46 WBC RBC Hgb Hct MCV MCH MCHC RDW Plt Count MPV Neut % (Auto) Lymph % (Auto) Ray % (Auto) Eos % (Auto) Baso % (Auto) Neut # (Auto) Lymph # (Auto) Ray # (Auto) Eos # (Auto) Baso # (Auto) Nucleated RBC % (a uto) Nucleated RBCs # Sodium Potassium Chloride Carbon Dioxide Anion Gap BUN Creatinine GFR Calculation Glucose POC Glucose 244 310 313 Calcium Total Bilirubin AST ALT Alkaline Phosphata se Total Protein Albumin Globulin Triglycerides Cholesterol LDL Cholesterol, C alc HDL Cholesterol LDL/HDL Ratio Cholesterol/HDL Ra jess 06/17/19 06/17/19 04:45 04:45 WBC 8.8 RBC 3.91 L Hgb 11.3 L Hct 34.5 L MCV 88.2 MCH 28.9 MCHC 32.8 RDW 13.5 Plt Count 212 MPV 10.9 H Neut % (Auto) 56.0 Lymph % (Auto) 32.6 Ray % (Auto) 6.6 Eos % (Auto) 3.2 Baso % (Auto) 1.0 Neut # (Auto) 4.9 Lymph # (Auto) 2.9 Ray # (Auto) 0.6 Eos # (Auto) 0.3 Baso # (Auto) 0.1 Nucleated RBC % (a uto) 0 Nucleated RBCs # 0.0 Sodium 135 L Potassium 3.9 Chloride 96 L Carbon Dioxide 28 Anion Gap 14.9 BUN 29 H Creatinine 1.1 H GFR Calculation 50.8 L Glucose 301 H POC Glucose Calcium 9.2 Total Bilirubin 0.5 AST 21 ALT 25 Alkaline Phosphata se 70 Total Protein 6.8 Albumin 3.9 Globulin 2.9 Triglycerides 164 H Cholesterol 221 H LDL Cholesterol, C alc 152 H HDL Cholesterol 36 L LDL/HDL Ratio 4.22 H Cholesterol/HDL Ra jess 6.14 H Vitals: Last Vital Signs Temp 98.2 F 01/06/20 23:17 Pulse 72 06/17/19 23:17 Resp 16 06/17/19 23:17 BP 117/57 06/17/19 23:17 Pulse Ox 96 06/17/19 23:17 TS Medications Medications Home Medications guaifenesin [Mucinex] 600 mg PO Q12H PRN 06/16/19 [History Confirmed 06/16/19] ibuprofen 200 mg PO Q6H PRN 06/16/19 [History Confirmed 06/16/19] insulin NPH and regular human [Novolin 70/30 U-100 Insulin] 40 unit SUBCUT BID 06/16/19 [History Confirmed 06/16/19] Active Medications Aminophylline (Aminophylline) 25 mg IVP Q2M PRN PRN Reason: see dose instructions Stop: 06/18/19 06:49 Aspirin (Aspirin Chewable) 81 mg PO DAILY [facility] Last Admin: 06/17/19 12:10 Dose: 81 mg Documented by: Dextrose (D50w) 25 ml IVP ONCE PRN; Protocol PRN Reason: hypoglycemia protocol Dextrose (D50w) 50 ml IVP PRN PRN; Protocol PRN Reason: hypoglycemia protocol Diphenhydramine HCl (Benadryl) 50 mg PO ONCE ONE Stop: 06/18/19 19:31 Furosemide (Lasix) 40 mg IVP Q24H [facility] Last Admin: 06/17/19 09:27 Dose: 40 mg Documented by: Glucagon (Glucagen) 1 mg IM ONCE PRN; Protocol PRN Reason: Adult Acute Hypoglycemia Prot. Dextrose (D5w) 500 mls @ 100 mls/hr IV ONCE PRN; Protocol PRN Reason: Adult Acute Hypoglycemia Prot Sodium Chloride (Sodium Chloride 0.9%) 1,000 mls @ 50 mls/hr IV .Q20H ONE Stop: 06/19/19 15:29 Insulin Aspart (Novolog) 0 unit SUBCUT TIDWM [facility]; Protocol Last Admin: 06/17/19 17:56 Dose: 8 unit Documented by: Insulin Glargine (Lantus) 10 unit SUBCUT BEDTIME [facility] Last Admin: 06/17/19 22:03 Dose: 10 unit Documented by: Lisinopril (Prinivil) 5 mg PO DAILY [facility] Last Admin: 06/17/19 09:28 Dose: Not Given Documented by: Metoprolol Tartrate (Lopressor) 12.5 mg PO BID [facility] Last Admin: 06/17/19 17:56 Dose: 12.5 mg Documented by: Nitroglycerin (Nitro-Bid) 1 inch TOPICAL Q6H [facility] Last Admin: 06/17/19 21:43 Dose: Not Given Documented by: Nitroglycerin (Nitrostat) 0.4 mg SUBLINGUAL Q5M PRN PRN Reason: CHEST PAIN Stop: 06/18/19 06:49 Ondansetron HCl (Zofran) 4 mg IVP Q6H PRN PRN Reason: NAUSEA AND VOMITING Ondansetron HCl (Zofran) 4 mg IVP Q2M PRN PRN Reason: NAUSEA Discharge Plan Discharge Patient Disposition: [facility] Condition: Serious Prescriptions: No Action Novolin 70/30 U-100 Insulin 100 unit/mL (70-30) Suspension 40 unit SUBCUT BID RF: 0 ibuprofen 200 mg Tablet 200 mg PO Q6H PRN (Reason: Pain) RF: 0 Mucinex 600 mg Tablet Extended Release 12hr 600 mg PO Q12H PRN (Reason: Congestion) RF: 0 Coding Level of Care Code Acute Expense Clerk for [facility] Diagnoses Congestive heart failure I50.9 Abnormal cardiovascular stress test R94.39 Atrial fibrillation and flutter I48.91; I48.92
[2019-06-18 07:08] LABS: Basophils # 0.1 10^3/uL (0.0-0.1); Basophils % 0.7 %; Eosinophils # 0.3 10^3/uL (0.0-0.8); Eosinophils % 3.2 %; Hematocrit 33.5 % (37.0-47.0); Hemoglobin 10.9 g/dL (11.5-15.3); Lymphocytes % 24.7 %; Mean Corpuscular HGB Conc 32.5 g/dL (30.0-36.0); Mean Corpuscular Hemoglobin 27.7 pg (28.0-34.0); Mean Platelet Volume 11.7 fL (7.4-10.4); Monocytes # 0.6 10^3/uL (0.2-0.9); Neutrophils # 5.2 10^3/uL (1.8-7.7); Nucleated Red Blood Cells % 0 %; Platelet Count 208 10^3/cmm (130-400); Red Blood Count 3.94 10^6/uL (4.1-5.3); Red Cell Distribution Width 13.1 % (12.1-15.1); White Blood Count 8.2 10^3/uL (4.0-10.0)
[2019-06-18 07:42] LABS: Blood Urea Nitrogen 29 mg/dL (6-20); Calcium 9.5 mg/Dl (8.6-10.0); Carbon Dioxide 27 mmol/L (22-29); Chloride 94 mmol/L (98-107); Glomerular Filtration Rate 64.1 mL/min (90-130); Glucose 315 mg/dL (74-109); Sodium 131 mmol/L (136-145)
[2019-06-18 08:00] LABS: Glucose Point of Care 271 mg/dL (70-110)
[2019-06-18] MEDS: sodium chloride 0.9% 1,000 ML 50 ML IV (08:09)
[2019-06-18] MEDS: metoprolol tartrate 25 mg Tablet 12.5 MG PO ×2 (08:10→19:31)
[2019-06-18] MEDS: diphenhydrAMINE 50 mg Capsule PO (08:11)
[2019-06-18] MEDS: aspirin 81 mg Chew Tablet PO (08:11)
--- NOTE | 2019-06-18 08:30 | XACV_ITS ---
Exam Room: [facility] Ht: 170 cm Wt: 103 kg BSA: 2.25 m2 Gender: Female : 1960 Any Known Allergies: Other Exam Priority: Routine Procedure(s): Procedure Description: Diagnostic procedure Procedure Description: PCI procedure Procedure Description: Drug Eluting Coronary Stent Procedure Description: PTCA Procedure Description: Coronary Angiography Diagnostic Findings LM has 0% stenosis. pLAD: Mild 30% stenosis, ESTRELLA: 3 flow. dLAD: Severe 90% stenosis, ESTRELLA: 2 flow. dCIRC: Severe 90% stenosis, ESTRELLA: 2 flow. Proximal Right Coronary Artery: Severe 99% stenosis, ESTRELLA: 2 flow. Coronary angiography shows right dominance. PCI Status: Elective PCI Indication: New Onset Angina <= 2 months Interventional Findings Proximal Right Coronary Artery: 99% stenosis treated with AB TREK 2.50X20 RX BALLOON, MDT R TOM 3.0X30 JARROD, MDT R TOM 3.0X12 JARROD, and AB TREK 3.50X8 RX BALLOON. 0% residual stenosis, ESTRELLA: 3 flow. Conclusions There is severe coronary artery disease with three vessel disease. Proximal Right Coronary Artery was treated with two Balloon and two Drug Eluting Stent. Indication for angiogram: Worsening of chest pressure/pain shortness of breath despite of optimization of medicine and abnormal stress test refer to us for angiogram. Recommendations 1-Return to inpatient for close monitoring and routine cath care2-Risk factor modification for secondary prevention3-Statin and aspirin 81 mg life-long, if tolerated4-Continue Plavix 75mg p.o. daily for at least one year. We will assess at the end of one year again to continue if further or not5-Continue optimal medical management6-Follow up with Dr. Metzger in four weeks and your primary care in 10 days. Interventional RX Recommendation: PCI w/o planned CABG Diagnostic RX Recommendation: PCI w/o planned CABG Pressures Phase:Rest AO : 101 mmHg / 73 mmHg ( 88 mmHg ) @ 3:03:00 AM 98 mmHg / 69 mmHg ( 84 mmHg ) @ 3:08:00 AM 98 mmHg / 71 mmHg ( 85 mmHg ) @ 3:09:00 AM 102 mmHg / 51 mmHg ( 72 mmHg ) @ 3:19:00 AM 91 mmHg / 57 mmHg ( 73 mmHg ) @ 3:24:00 AM 81 mmHg / 56 mmHg ( 68 mmHg ) @ 3:25:00 AM 58 mmHg / 45 mmHg ( 52 mmHg ) @ 3:26:00 AM 58 mmHg / 41 mmHg ( 50 mmHg ) @ 3::00 AM 78 mmHg / 53 mmHg ( 66 mmHg ) @ 3::00 AM 79 mmHg / 56 mmHg ( 54 mmHg ) @ 3::00 AM 22 mmHg / -17 mmHg ( 12 mmHg ) @ 3:29:00 AM 7 mmHg / -5 mmHg ( -1 mmHg ) @ 3:29:00 AM 37 mmHg / 21 mmHg ( 31 mmHg ) @ 3:30:00 AM 49 mmHg / 34 mmHg ( 46 mmHg ) @ 3:41:00 AM 56 mmHg / 39 mmHg ( 46 mmHg ) @ 3:43:00 AM 57 mmHg / 32 mmHg ( 48 mmHg ) @ 3:44:00 AM 64 mmHg / 44 mmHg ( 53 mmHg ) @ 3:44:00 AM 109 mmHg / 64 mmHg ( 82 mmHg ) @ 3:48:00 AM 112 mmHg / 65 mmHg ( 83 mmHg ) @ 3:51:00 AM 106 mmHg / 74 mmHg ( 89 mmHg ) @ 3:52:00 AM 112 mmHg / 56 mmHg ( 76 mmHg ) @ 3:53:00 AM 115 mmHg / 62 mmHg ( 83 mmHg ) @ 3:56:00 AM 109 mmHg / 57 mmHg ( 77 mmHg ) @ 4:00:00 AM 125 mmHg / 63 mmHg ( 87 mmHg ) @ 4:00:00 AM 125 mmHg / 66 mmHg ( 90 mmHg ) @ 4:01:00 AM 113 mmHg / 71 mmHg ( 93 mmHg ) @ 4:08:00 AM 117 mmHg / 67 mmHg ( 90 mmHg ) @ 4:13:00 AM Clinical Evaluation EBL: 5mL-10mL Procedural Details pronto catheter inserted. dopamine stopped. Pads applied to pt. pronto extraction catheter inserted. pronto removed. anesthesoloist taking over sedation. venous i.v is running. pronto catheter removed. [id number]. Procedure Consent Obtained. Pre-Procedure Time Out. Identified patient by full name and date of as verbalized by the patient/guarantor. Does the consent match the physician's order: Yes. Accurate & Complete Informed Consent: Yes. Inpatient/Outpatient History & Physical on Chart: Yes. If H&P is completed, is and addenduem needed: N/A; If yes, is the addendum complete: N/A. Visualize and Verify Site with Patient/Guarantor: N/A. Relevant Radiology Images available: Yes. Pre-op teaching completed and patient verbalized understanding. The risks, benefits, and alternatives of sedation and/or procedure were discussed by physician. The patient agrees to continue. Procedure started. Correct patient, site and procedure confirmed by cath team. PERRLA. Strong, equal hand early head start teacher bilaterally. Lungs clear x 5 lobes. IV Site on Arrival: 18 gauge in the left anticubital. IV Fluids: 0.9% NaCl at KVO. 0 mL infused prior to photographic laboratory technician. Oxygen started at 2liters/min via nasal canula. right groin was prepped with chloroprep then draped in the usual sterile fashion. right radial was prepped with chloroprep then draped in the usual sterile fashion. Physician notified. Baseline sample Acquired. HR: 58 BPM. Equipment: 6F - Radial. Cardiac Cath Pack. ACIST Manifold Kit Model BT 2000. Heparinized Saline (2 units/mL), 1000 mL bag. Physician arrived. Physician scrubbed in. Immediate Pre-Procedure Time Out. Correct Patient: Yes; Correct Procedure: Yes; Correct Site: Yes; Correct Patient Position: Yes; Correct Supplies: Yes; Dried Flammable Prep: Yes; Blood Products Available: No;. Lidocaine 1% infiltrated to the right radial. Arterial access obtained. A 5 greenlandic TIG catheter in over wire. Multiple views taken of left coronary artery. Catheter redirected to the RCA. Multiple views taken of right coronary artery. Inventory is 2sms XT .014 190cm Str. Guidewire. Catheter out. Patient's family updated. 6 greenlandic JR 4 SH guide catheter was inserted over the wire. [place] guidewire was advanced through the guide catheter to lesion in the prox RCA. Balloon inserted to lesion in the prox RCA. Inflation number : 1 A AB TREK 2.50X20 RX BALLOON was prepped and advanced across the Prox RCA , then inflated to 12 LAURA for 0:07 seconds. Inflation number: 2 The AB TREK 2.50X20 RX BALLOON was reinflated across the Prox RCA, to 12 LAURA for 0:09 seconds. Inflation number: 3 The AB TREK 2.50X20 RX BALLOON was reinflated across the Prox RCA, to 12 LAURA for 0:05 seconds. Results checked. Inflation number: 4 The AB TREK 2.50X20 RX BALLOON was reinflated across the Prox RCA, to 12 LAURA for 0:05 seconds. Inflation number: 5 The AB TREK 2.50X20 RX BALLOON was reinflated across the Prox RCA, to 12 LAURA for 0:05 seconds. Inflation number: 6 The AB TREK 2.50X20 RX BALLOON was reinflated across the Prox RCA, to 12 LAURA for 0:06 seconds. Inflation number: 7 The AB TREK 2.50X20 RX BALLOON was reinflated across the Prox RCA, to 12 LAURA for 0:07 seconds. Balloon out. Inflation Number : 8 A MDT Sarmad TOM 3.0X30 JARROD -Lot Number# [id number] exp 05-24-2020 was prepped and advanced across the Prox RCA. The stent was deployed at 12 LAURA for 0:12 seconds. Stent balloon out over wire. Respitory Therapist Arrived. Anesthesiologist Paged. Anesthesiologist Arrived. Lidocaine 1% infiltrated to the right groin. Venous access obtained with a micropuncture set. Inflation number: 9 The AB TREK 2.50X20 RX BALLOON was reinflated across the Prox RCA, to 8 LAURA for 0:03 seconds. Inflation number: 10 The AB TREK 2.50X20 RX BALLOON was reinflated across the Prox RCA, to 8 LAURA for 0:05 seconds. Inflation number: 11 The AB TREK 2.50X20 RX BALLOON was reinflated across the Prox RCA, to 10 LAURA for 0:06 seconds. Inflation number: 12 The AB TREK 2.50X20 RX BALLOON was reinflated across the Prox RCA, to 12 LAURA for 0:05 seconds. A 18 gauge IV was started in the left wrist using aseptic technique. Arterial access obtained with micropuncture set. ACT drawn. Results 205 seconds. Therapeutic limits - pre-heparin administration 90-150 seconds and monitoring heparin during a vascular procedure >250 seconds. Wire out. Guide catheter out. Inflation Number : 13 A TRISTAN R TOM 3.0X12 JARROD -Lot Number# [id number] was prepped and advanced across the Prox RCA. The stent was deployed at 18 LAURA for 0:11 seconds. Inflation number : 14 A AB TREK 3.50X8 RX BALLOON was prepped and advanced across the Prox RCA , then inflated to 10 LAURA for 0:14 seconds. Inflation number: 15 The AB TREK 3.50X8 RX BALLOON was reinflated across the Prox RCA, to 12 LAURA for 0:11 seconds. Inflation number: 16 The AB TREK 3.50X8 RX BALLOON was reinflated across the Prox RCA, to 12 LAURA for 0:09 seconds. A TR Band was successful obtaining hemostatsis at the Right Radial artery insertion site. A Suture was successful obtaining hemostatsis at the Right Femoral vein insertion site. A Suture was successful obtaining hemostatsis at the Right Femoral artery insertion site. TR band placed. Hemostasis obtained. Sheath(s) sutured into position with 2-0 silk and sterile 4x4's and Op-site applied over the site. No oozing or signs and symptoms of hematoma noted. Arterial sheath flushed and connected to tranducer and pressure bag with heparinized saline. PERRLA. Strong, equal hand early head start teacher bilaterally. No VTE prophylaxis required. Fluoro: 19:50. Contrast type used: Omnipaque 300 mg/mL, 150 mL bottle. Medication's Wasted: Other = omni 197 mg. Medication's Wasted: Lidocaine 1% = 5 mL. Medication's Wasted: Heparin = 1000 units. Medication's Wasted: Nitro = 49.8 mg. Total IV fluids: 1000 mL. Complications: none. Estimated blood loss: 5mL-10mL. Procedure completed. PCI Indication: New Onset Angina. Post-op diagnosis: PCI RCA. [facility] Clinical Fraility Score: 4: Vulnerable. Waste Specialist Indications: New Onset Angina. Chest Pain Symptom Assessment: Typical Angina Symptoms. Cardiovascular Instability: Yes, if yes, Acute Heart Failure. Patient transferred by bed to 1st floor. Vital chart was stopped. Site: Right Radial artery Sheath Size: 5 Fr Hemostasis Success: Unsuccessful Site: Right Radial artery Sheath Size: 6 Fr Hemostasis Method: TR Band Hemostasis Success: Successful Site: Right Femoral vein Sheath Size: 5 Fr Hemostasis Method: Suture Hemostasis Success: Successful Site: Right Femoral artery Sheath Size: 6 Fr Hemostasis Method: Suture Hemostasis Success: Successful Procedure Medications Start: 8:35 AM Stop: 8:35 AM Medication: Versed Amount: 1 mg Route: I.V. Start: 8:36 AM Stop: 8:36 AM Medication: Fentanyl Amount: 50 mcg Route: I.V. Start: 8:49 AM Stop: 8:49 AM Medication: Nitrogylcerin Amount: 50 mcg Start: 8:59 AM Stop: 8:59 AM Medication: Nitrogylcerin Amount: 200 mcg Route: I.A. Start: 9:02 AM Stop: 9:02 AM Medication: Heparin Amount: 5000 units Route: I.V. Start: 9:14 AM Stop: 9:14 AM Medication: Aggrastat 12.5 mg/250 mL Amount: 52 ml Route: I.V. bolus Start: 9:14 AM Stop: 9:14 AM Medication: Aggrastat 12.5 mg/250 mL Amount: 18.7 ml/hr Route: I.V. drip Start: 9:15 AM Stop: 9:15 AM Medication: Versed Amount: 1 mg Route: I.V. Start: 9:15 AM Stop: 9:15 AM Medication: Fentanyl Amount: 50 mcg Route: I.V. Start: 9:16 AM Stop: 9:16 AM Medication: Heparin Amount: 3000 units Route: I.V. Start: 9:28 AM Stop: 9:28 AM Medication: Nitrogylcerin Amount: 200 mcg Route: I.C. Start: 9:29 AM Stop: 9:29 AM Medication: Atropine Amount: 1 mg Route: I.V. Start: 9:34 AM Stop: 9:34 AM Medication: Epinephrine Amount: 1 mg Route: I.V. Start: 9:36 AM Stop: 9:36 AM Medication: Dopamine 400mg/250 mL Amount: 10 mcg/kg/min Route: I.V. drip Start: 9:37 AM Stop: 9:37 AM Medication: Epinephrine Amount: 1 mg Route: I.V. Start: 9:52 AM Stop: 9:52 AM Medication: Dopamine 400mg/250 mL Amount: 5 mcg/kg/min Route: I.V. drip Start: 10:00 AM Stop: 10:00 AM Medication: Heparin Amount: 2000 units Route: I.V. I, the attending physician, have reviewed and verified all procedure medications. Yes, all medications given per verbal order History/Risk Factors Hypertension: Yes Dyslipidemia: No Diabetic Therapy: Insulin Peripheral Arterial Disease (PAD): No Myocardial Infarction (RI): No Obesity: Yes Renal Disease: No Tobacco Use: Never Prior Interventions PCI: No CABG: No Valve Surgery: No Report Signatures Finalized by:Aliyah Saunders MD on 06/28/2019 12:45:37 PM
--- NOTE | 2019-06-18 08:43 | PC.NURSE ---
PATIENT TO CCL WITH STAFF VIA WHEELCHAIR
[2019-06-18] MEDS: FUROsemide 10 mg/mL SDV 4mL 40 MG IVP (09:26)
--- NOTE | 2019-06-18 10:03 | PM.MISC ---
Miscellaneous Note Purpose of Documentation: Called to Field Project Manager for patient condition deterioration. Dr. Johnson and I responded to call immediately. Pt assessed and evaluated. having ST elevation and bradycardia/hypotension. difficulty with IV access. Dr. Saunders accessed femoral vein and I placed an 18G PIV to left wrist. +blood return and flush. Nurses added already hanging IV lines. Pt awake and respiratory status was adequate and not needing intervention at this time. With drugs given per nursing staff. pt condition improved and we monitored for 10 min and asked them to call us back if needed.
--- NOTE | 2019-06-18 11:30 | PC.NURSE ---
Dr desai at bedside to assess patients sites hemotoma formation noted pressure to right groin applied; hematoma boarders marked. Patient attempting to use bed gamez; patient unable to void place Gonsalves catheter verbal order and EKG stat obtained
[2019-06-18] MEDS: clopidogrel 300 mg Tablet 600 MG PO (11:40)
--- NOTE | 2019-06-18 11:40 | ECG_ITS ---
Measurements Intervals [place] Rate: 70 P: -19 IN: 174 QRS: -6 QRSD: 138 T: 80 QT: 463 QTc: 501 SINUS RHYTHM LEFT BUNDLE BRANCH BLOCK [120+ ms QRS DURATION, 80+ ms Q/S IN V1/V2, 85+ ms R IN I/aVL/V5/V6] Compared to ECG 06/16/2019 05:37:05 Atrial fibrillation no longer present Electronically Signed On 06-18-2019 19:21:47 TRAVEL COORDINATOR by Aliyah Saunders M.D. [id number]
[2019-06-18] MEDS: ondansetron 2 mg/ML SDV 2 mL 4 MG IVP (11:47)
[2019-06-18 11:48] LABS: Glucose Point of Care 364 mg/dL (70-110)
[2019-06-18 12:33] LABS: Basophils # 0.1 10^3/uL (0.0-0.1); Basophils % 0.5 %; Eosinophils # 0.2 10^3/uL (0.0-0.8); Eosinophils % 1.5 %; Hematocrit 29.3 % (37.0-47.0); Hemoglobin 9.6 g/dL (11.5-15.3); Lymphocytes # 1.9 10^3/uL (0.8-4.8); Lymphocytes % 16.7 %; Mean Corpuscular HGB Conc 32.8 g/dL (30.0-36.0); Mean Corpuscular Hemoglobin 28.6 pg (28.0-34.0); Mean Corpuscular Volume 87.2 fL (81-99); Mean Platelet Volume 11.6 fL (7.4-10.4); Monocytes # 0.6 10^3/uL (0.2-0.9); Monocytes % 5.2 %; Neutrophils # 8.6 10^3/uL (1.8-7.7); Neutrophils % 75.5 %; Nucleated Red Blood Cells % 0 %; Platelet Count 238 10^3/cmm (130-400); Red Blood Count 3.36 10^6/uL (4.1-5.3); Red Cell Distribution Width 13.3 % (12.1-15.1); White Blood Count 11.4 10^3/uL (4.0-10.0)
--- NOTE | 2019-06-18 13:02 | P.PN_ITS ---
Subjective Subjective: Interval history: Patient is status post coronary angiogram/PCI. Denies any complain except right groin hematoma. Vitals/I&O/Wt Last Vital Signs Temp 97.4 F L 06/18/19 11:04 Pulse 79 06/18/19 11:04 Resp 10 L 06/18/19 11:04 BP 120/87 06/18/19 11:04 Pulse Ox 97 06/18/19 11:04 06/17/19 06/18/19 06/18/19 22:59 06:59 14:59 Intake Total 420 / 420 Balance 420 / 420 Weight last 48 hrs Weight 229 lb 9.6 oz Weight 228 lb 8 oz Weight 228 lb 14.4 oz Weight 229 lb 4.8 oz Data Micro: Micro: Microbiology 06/16/19 00:28 Urine Culture - Fi nal Urine,Clean Catch A&P Assessment and plan (1) Atrial fibrillation and flutter: Currently patient sinus rhythm. Continue current regimen Status: Acute Code(s): I48.91 - Unspecified atrial fibrillation; I48.92 - Unspecified atrial flutter (2) Abnormal cardiovascular stress test: Patient had angiogram performed this morning she was found to have 50% proximal and 90% very distal LAD disease not amenable to intervention due to small caliber of the vessel distally. She was also found to have tight 99% proximal RCA stenosis but large plaque burden. During attempt to balloon angioplasty no reflow phenomena was observed. Patient became hypotensive and severely bradycardic. She was started on dopamine drip along with atropine was given. Quick access from groin was obtained as we were not able to pass the Pronto catheter. After obtaining groin axis balloon angioplasty another proximal stent in overlapping fashion was performed. Good ESTRELLA-3 flow with excellent angiographic result was achieved. Patient post catheterization developed right groin hematoma which was tackled with groin pressure. Aggrastat was stopped she was loaded with 600 mg of Plavix. Currently patient is is stable Status: Acute Code(s): R94.39 - Abnormal result of other cardiovascular function study (3) Congestive heart failure: Patient is in compensated state of heart failure. Continue current regimen Status: Acute Code(s): I50.9 - Heart failure, unspecified (4) Hyperglycemia: As per medicine Status: Acute Code(s): R73.9 - Hyperglycemia, unspecified Attestations Medical Necessity Statement*: Patient requires continuation hospitalization for above defined care. Coding Level of Care Code Acute Operations Plant Attendant for [facility] Fwd Diagnoses Atrial fibrillation and flutter I48.91; I48.92 Abnormal cardiovascular stress test R94.39 Congestive heart failure I50.9 Hyperglycemia R73.9
[2019-06-18 14:27] LABS: Partial Thromboplastin Time 47.7 SECONDS (23.9-36.7)
[2019-06-18] MEDS: morphine 4 mg/mL SDV 1 mL 2 MG IVP (15:15)
[2019-06-18 17:23] LABS: Glucose Point of Care 376 mg/dL (70-110)
--- NOTE | 2019-06-18 17:34 | PM.PN ---
Subjective Subjective: Interval history: Patient underwent coronary angiogram this morning. She was found to have 50% proximal and 90% very distal LAD disease not amenable to intervention due to small caliber of the vessel. She was also found to have proximal RCA stenosis with a large plaque burden. During the attempt at balloon angioplasty she became hypotensive and severely bradycardic. She was transiently started on dopamine drip and atropine was also given. She eventually underwent angioplasty via a groin approach. A proximal stent was able to be placed. Post catheterization she developed a right-sided hematoma which was started with groin pressure. He was loaded with 600 mg of Plavix thereafter. Vitals/I&O/Wt Last Vital Signs Temp 97.4 F L 06/18/19 11:04 Pulse 69 06/18/19 14:51 Resp 13 06/18/19 15:15 BP 130/77 06/18/19 14:51 Pulse Ox 94 06/18/19 14:51 Weight last 48 hrs Weight 104.145 kg Weight 103.646 kg Weight 103.827 kg Weight 104.009 kg Physical Exam Narrative: EXAM NARRATIVE: General awake alert and oriented. CVS S1-S2 is normal Respiratory system clear to auscultation bilaterally Extremities no pitting edema around the ankles. Groin site with pressure dressing in place. Abdomen soft nondistended nontender bowel sounds are positive Urinary Catheter Management^: Gonsalves: Cath Placed During This Visit: no Data Micro: Micro: Microbiology 06/16/19 00:28 Urine Culture - Fi nal Urine,Clean Catch A&P Assessment and plan (1) Congestive heart failure: Status: Acute Code(s): I50.9 - Heart failure, unspecified (2) Abnormal cardiovascular stress test: Status: Acute Code(s): R94.39 - Abnormal result of other cardiovascular function study (3) Atrial fibrillation and flutter: Status: Acute Code(s): I48.91 - Unspecified atrial fibrillation; I48.92 - Unspecified atrial flutter Additional A&P Information Additional A&P Information: Coronary artery disease status post angioplasty and proximal LAD stent placement today. Continue on aspirin 81 and Plavix 75 mg p.o. daily Congestive heart failure Continue Lasix 40 mg IV daily. Currently clinically euvolemic. Will reassess tomorrow morning and assess for further need of Lasix. Continue metoprolol and lisinopril New onset atrial fibrillation without RVR. Heart rate running between 70-90. Continue metoprolol for rate control Eliquis on hold for now Diabetes mellitus: Continue insulin Lantus and NovoLog sliding scale Undiagnosed hypertension Started on lisinopril for now and monitor and adjust medications accordingly Full code DVT prophylaxis scds Attestations Medical Necessity Statement*: Management of new onset CHF, coronary artery disease status post PCI today. Coding Level of Care Code Acute Inclusion Intern for [facility] Fwd Diagnoses Congestive heart failure I50.9 Abnormal cardiovascular stress test R94.39 Atrial fibrillation and flutter I48.91; I48.92
[2019-06-18 21:31] LABS: Glucose Point of Care 457 mg/dL (70-110)
[2019-06-18 21:31] LABS: Glucose Point of Care 454 mg/dL (70-110)
[2019-06-18] MEDS: insulin glargine 100 units/1 mL 10 UNIT SUBCUT (21:59)
[2019-06-18] MEDS: nitroglycerin 1 gm/inch oint Pkt 1 INCH TOPICAL (21:59)
--- NOTE | 2019-06-19 00:19 | PC.NURSE ---
patients tr band emptied with no bleeding of issues, patient tolerated it well. patient also got up at 0000 and walked the length of the [place] and back with no bleeding, pain of sob. she said she felt good. site checked prior to and after and vitals taken both times. no adverse effects and vitals wnl.
[2019-06-19 04:00] VITALS: BP 109/57; PULSE 68; RESP 18; TEMP 36.8
--- NOTE | 2019-06-19 05:05 | PC.NURSE ---
Removed patients catheter at 0500. 10 mls of water removed from the ball, and cather was intact upon removal. patient tolerated the procedure well.
[2019-06-19 05:18] LABS: Basophils # 0.1 10^3/uL (0.0-0.1); Basophils % 0.5 %; Eosinophils # 0.1 10^3/uL (0.0-0.8); Eosinophils % 0.4 %; Hematocrit 25.5 % (37.0-47.0); Hemoglobin 8.3 g/dL (11.5-15.3); Lymphocytes # 1.3 10^3/uL (0.8-4.8); Lymphocytes % 11.4 %; Mean Corpuscular HGB Conc 32.5 g/dL (30.0-36.0); Mean Corpuscular Hemoglobin 28.8 pg (28.0-34.0); Mean Corpuscular Volume 88.5 fL (81-99); Mean Platelet Volume 11.8 fL (7.4-10.4); Monocytes # 0.8 10^3/uL (0.2-0.9); Monocytes % 7.1 %; Neutrophils # 9.1 10^3/uL (1.8-7.7); Nucleated Red Blood Cells % 0 %; Platelet Count 218 10^3/cmm (130-400); Red Blood Count 2.88 10^6/uL (4.1-5.3); Red Cell Distribution Width 13.2 % (12.1-15.1); White Blood Count 11.3 10^3/uL (4.0-10.0)
[2019-06-19 06:05] LABS: Alanine Aminotransferase 18 U/L (0-33); Albumin Level 3.6 g/dL (3.5-5.2); Alkaline Phosphatase 60 IU/L (35-105); Anion Gap 16.2 (5-19); Aspartate Amino Transferase 32 U/L (0-32); Blood Urea Nitrogen 39 mg/dL (6-20); Calcium 8.9 mg/Dl (8.6-10.0); Carbon Dioxide 25 mmol/L (22-29); Chloride 96 mmol/L (98-107); Globulin 2.7 g/dL (1.3-4.6); Glomerular Filtration Rate 41.9 mL/min (90-130); Glucose 283 mg/dL (74-109); Potassium 4.2 mmol/L (3.5-5.1); Sodium 133 mmol/L (136-145); Total Bilirubin 0.3 mg/dL (0.15-1.2); Total Protein 6.3 g/dL (6.6-8.7)
[2019-06-19 07:38] LABS: Glucose Point of Care 356 mg/dL (70-110)
[2019-06-19 07:43] VITALS: BP 114/61; PULSE 73; RESP 20; TEMP 36.4; O2SAT 96
[2019-06-19] MEDS: clopidogrel 75 mg Tablet PO (08:44)
[2019-06-19] MEDS: aspirin 81 mg EC Tablet PO (08:44)
[2019-06-19] MEDS: metoprolol tartrate 25 mg Tablet 12.5 MG PO ×2 (08:45→19:18)
--- NOTE | 2019-06-19 09:07 | PM.PN ---
Subjective Subjective: Interval history: Denies any major complain except being fatigue. Denies chest pain denies shortness of breath. She has large bruising on the right groin since she is status post hematoma Vitals/I&O/Wt Last Vital Signs Temp 97.6 F 06/19/19 07:43 Pulse 73 06/19/19 07:43 Resp 20 H 06/19/19 07:43 BP 114/61 06/19/19 07:43 Pulse Ox 96 06/19/19 07:43 06/18/19 06/19/19 06/19/19 22:59 06:59 14:59 Intake Total 1000 / 1000 260 / 1260 Output Total 1000 / 1000 525 / 1525 Balance 0 / 0 -265 / -265 Weight last 48 hrs Weight 231 lb 1.6 oz Weight 229 lb 9.6 oz Weight 228 lb 8 oz Weight 228 lb 14.4 oz Physical Exam Narrative: EXAM NARRATIVE: GENERAL: Patient is alert, awake and oriented x3. NECK: No jugular vein distension. HEENT: No cyanosis. No icterus. No pallor. HEART: Regular S1 and S2. No murmur, rub or gallop. LUNGS: Clear to auscultate bilaterally. ABDOMEN: Soft, nontender and nondistended. Positive bowel sounds. No guarding, rebound or tenderness. CENTRAL NERVOUS SYSTEM: Grossly nonfocal. EXTREMITIES: Lower extremities without edema bilaterally. Right groin large bruising. Hematoma has resolved Urinary Catheter Management^: Gonsalves: Cath Placed During This Visit: no Data Micro: Micro: Microbiology 06/16/19 00:28 Urine Culture - Fi nal Urine,Clean Catch A&P Assessment and plan (1) CAD (coronary artery disease): Status post angioplasty and PCI of proximal RCA with 2 overlapping drug-eluting stent for 99% long stenosis. Postop course was complicated with right groin hematoma and large bruising. Hematoma has resolved patient is feeling better. Hemoglobin today is 8.3 could it be some dilutionalWe will recheck it. Continue Plavix. Will resume Eliquis. Will recommend Protonix as PPI since patient will be on triple antiplatelet therapy. Our plan is to continue Eliquis And Plavix for six months to year depending upon anemia. After that we will continue Eliquis and aspirin Plavix will be dropped off then. Status: Acute Code(s): I25.10 - Atherosclerotic heart disease of [place] coronary artery without angina pectoris (2) Congestive heart failure: Well compensated. Continue holding Lasix. Status: Acute Code(s): I50.9 - Heart failure, unspecified (3) Insulin dependent diabetes mellitus: Aspirin medicine Status: Acute Code(s): E11.9 - Type 2 diabetes mellitus without complications; Z79.4 - intermediate manager (current) use of insulin (4) Fatigue: Most likely due to anemia and secondary to medicines Status: Acute Code(s): R53.83 - Other fatigue Attestations Medical Necessity Statement*: Patient required continuation hospitalization for above defined care. She status post PCI. Coding Level of Care Code Acute Online Retailer for [facility] Diagnoses CAD (coronary artery disease) I25.10 Congestive heart failure I50.9 Insulin dependent diabetes mellitus E11.9; Z79.4 Fatigue R53.83
[2019-06-19 11:58] LABS: Glucose Point of Care 378 mg/dL (70-110)
[2019-06-19 12:00] VITALS: BP 103/63; PULSE 76; RESP 20; TEMP 36.6; O2SAT 96
[2019-06-19 14:00] VITALS: BP 117/69; PULSE 77; RESP 20; TEMP 36.6; O2SAT 96
--- NOTE | 2019-06-19 14:47 | P.PN_ITS ---
Subjective Subjective: Interval history: Continues to feel better today. Chest discomfort has now resolved. No current dyspnea. Lasix on hold today. Hemoglobin has trended down to 8 likely secondary to hematoma yesterday. We will recheck an H&H at 4 PM Medications: Reviewed: Yes Vitals/I&O/Wt Last Vital Signs Temp 98 F 06/19/19 12:00 Pulse 76 06/19/19 12:00 Resp 20 H 06/19/19 12:00 BP 103/63 06/19/19 12:00 Pulse Ox 96 06/19/19 12:00 06/18/19 06/19/19 06/19/19 22:59 06:59 14:59 Intake Total 1000 / 1000 260 / 1260 200 / 200 Output Total 1000 / 1000 525 / 1525 Balance 0 / 0 -265 / -265 200 / 200 Weight last 48 hrs Weight 104.825 kg Weight 104.145 kg Weight 103.646 kg Physical Exam Narrative: EXAM NARRATIVE: General awake alert and oriented. CVS S1-S2 is normal Respiratory system clear to auscultation bilaterally Extremities no pitting edema around the ankles. Groin site with dressing in place. No gross hematoma noted. Abdomen soft nondistended nontender bowel sounds are positive Urinary Catheter Management^: Gonsalves: Cath Placed During This Visit: no A&P Assessment and plan (1) Congestive heart failure: Status: Acute Code(s): I50.9 - Heart failure, unspecified (2) Abnormal cardiovascular stress test: Status: Acute Code(s): R94.39 - Abnormal result of other cardiovascular function study (3) Atrial fibrillation and flutter: Status: Acute Code(s): I48.91 - Unspecified atrial fibrillation; I48.92 - Unspecified atrial flutter Additional A&P Information Additional A&P Information: Coronary artery disease status post angioplasty and proximal LAD stent placement today. Continue on aspirin 81 and Plavix 75 mg p.o. daily. Upon discharge will likely plan for continuing aspirin and Plavix. Upon further review of EKGs it is not entirely clear if her irregular heart rate was truly A. fib versus sinus rhythm with multiple PACs. Upon discharge we will plan for a 21-day event monitor. If any true events of A. fib are noticed then patient would need to be changed in terms of anticoagulation to Plavix and Eliquis for the next 6 months with transition to aspirin and Eliquis eventually. At this time would be hesitant to use all 3 that is aspirin Plavix and Eliquis given the patient's globin is trending down and also just had a groin hematoma. Monitor H&H. Will repeat at 4. Transfusion threshold at this time is at hemoglobin of 8. Congestive heart failure Lasix 40 mg IV daily on hold for now. Currently clinically euvolemic. Will reassess tomorrow morning and assess for further need of Lasix. Continue metoprolol and lisinopril New onset atrial fibrillation without RVR vs sinus rhythm with multiple APCs. Heart rate running between 70-90. Continue metoprolol for rate control Diabetes mellitus: Continue insulin Lantus and NovoLog sliding scale Undiagnosed hypertension Started on lisinopril for now and monitor and adjust medications accordingly Full code DVT prophylaxis scds Attestations Medical Necessity Statement*: Management of CAD status post PCI with drug- eluting stent x2 complicated by development of groin hematoma. Monitoring H&H. Likely discharged if hemodynamically stable and hemoglobin does not drop any further. Coding Level of Care Code Acute Staff Readiness Officer for Cierra Fwd Diagnoses Congestive heart failure I50.9 Abnormal cardiovascular stress test R94.39 Atrial fibrillation and flutter I48.91; I48.92
--- NOTE | 2019-06-19 15:58 | ECG_ITS ---
Measurements Intervals [place] Rate: 75 P: 25 [place]: 194 QRS: -6 QRSD: 146 T: 107 QT: 429 QTc: 481 SINUS RHYTHM WITH OCCASIONAL SUPRAVENTRICULAR PREMATURE COMPLEXES LEFT BUNDLE BRANCH BLOCK [120+ ms QRS DURATION, 80+ ms Q/S IN V1/V2, 85+ ms R IN I/aVL/V5/V6] Compared to ECG 06/18/2019 13:05:10 No significant changes Electronically Signed On 06-20-2019 14:11:52 INDUSTRIAL WASTE TREATMENT TECHNICIAN by Shirin Metzger M.D. [email or web address]
[2019-06-19 16:00] VITALS: BP 117/64; PULSE 82; RESP 20; TEMP 36.8; O2SAT 96
[2019-06-19 16:54] LABS: Hematocrit 22.7 % (37.0-47.0); Hemoglobin 7.5 g/dL (11.5-15.3)
[2019-06-19 17:19] LABS: Glucose Point of Care 329 mg/dL (70-110)
[2019-06-19 20:00] VITALS: BP 116/66; PULSE 78; RESP 17; TEMP 36.6; O2SAT 97
[2019-06-19 21:42] LABS: Glucose Point of Care 366 mg/dL (70-110)
[2019-06-19] MEDS: insulin glargine 100 units/1 mL 10 UNIT SUBCUT (22:02)
[2019-06-20] VITALS (21 sets, daily range): BP systolic 109–155; BP diastolic 58–106; PULSE 70–78; RESP 9–20; TEMP 36.3–37.5; O2SAT 92–98
[2019-06-20 05:26] LABS: Hematocrit 21.9 % (37.0-47.0); Hemoglobin 7.3 g/dL (11.5-15.3)
[2019-06-20 05:38] LABS: Alanine Aminotransferase 20 U/L (0-33); Albumin Level 4.1 g/dL (3.5-5.2); Alkaline Phosphatase 56 IU/L (35-105); Anion Gap 14.8 (5-19); Aspartate Amino Transferase 33 U/L (0-32); Blood Urea Nitrogen 40 mg/dL (6-20); Calcium 9.3 mg/Dl (8.6-10.0); Carbon Dioxide 25 mmol/L (22-29); Chloride 98 mmol/L (98-107); Globulin 1.8 g/dL (1.3-4.6); Glomerular Filtration Rate 50.8 mL/min (90-130); Glucose 231 mg/dL (74-109); Potassium 3.8 mmol/L (3.5-5.1); Sodium 134 mmol/L (136-145); Total Bilirubin 0.4 mg/dL (0.15-1.2); Total Protein 5.9 g/dL (6.6-8.7)
--- NOTE | 2019-06-20 06:09 | PC.NURSE ---
patient states that she hadnt gotten any sleep last night listening to the sound of the bipap from her roommate and the staff coming in to help her.
[2019-06-20 08:03] LABS: Glucose Point of Care 267 mg/dL (70-110)
[2019-06-20] MEDS: metoprolol tartrate 25 mg Tablet 12.5 MG PO ×2 (10:04→17:40)
[2019-06-20] MEDS: aspirin 81 mg EC Tablet PO (10:04)
[2019-06-20] MEDS: atorvastatin 40 mg Tablet 80 MG PO (10:04)
[2019-06-20] MEDS: clopidogrel 75 mg Tablet PO (10:05)
[2019-06-20 11:26] LABS: Glucose Point of Care 405 mg/dL (70-110)
--- NOTE | 2019-06-20 13:30 | PM.PN ---
Subjective Subjective: Interval history: Shunt hemoglobin dropped down to 7.4 she is feeling fatigued. She otherwise denies chest pain. Medications: Reviewed: Yes Vitals/I&O/Wt Last Vital Signs Temp 97.9 F 06/20/19 11:45 Pulse 77 06/20/19 11:45 Resp 20 H 06/20/19 11:45 BP 134/78 06/20/19 11:45 Pulse Ox 98 06/20/19 11:45 06/19/19 06/20/19 06/20/19 22:59 06:59 14:59 Intake Total 120 / 320 0 / 0 Balance 120 / 320 0 / 0 Weight last 48 hrs Weight 231 lb 9.6 oz Weight 231 lb 9.6 oz Weight 231 lb 1.6 oz Physical Exam Narrative: EXAM NARRATIVE: GENERAL: Patient is alert, awake and oriented x3. NECK: No jugular vein distension. HEENT: No cyanosis. No icterus. No pallor. HEART: Regular S1 and S2. No murmur, rub or gallop. LUNGS: Clear to auscultate bilaterally. ABDOMEN: Soft, nontender and nondistended. Positive bowel sounds. No guarding, rebound or tenderness. CENTRAL NERVOUS SYSTEM: Grossly nonfocal. EXTREMITIES: Lower extremities without edema bilaterally. Right groin large bruising. Hematoma has resolved Urinary Catheter Management^: Gonsalves: Cath Placed During This Visit: no A&P Assessment and plan (1) CAD (coronary artery disease): Status post angioplasty and PCI of proximal RCA with 2 overlapping drug-eluting stent for 99% long stenosis. Postop course was complicated with right groin hematoma and large bruising. Hematoma has resolved patient is feeling better. Hemoglobin today is 8.3 could it be some dilutionalWe will recheck it. Continue Plavix On aspirin. I will discontinue Eliquis due to anemia and because of the fact we are not sure about atrial fibrillation. Status: Acute Code(s): I25.10 - Atherosclerotic heart disease of [place] coronary artery without angina pectoris (2) Congestive heart failure: It isWell compensated. Continue holding Lasix. 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 Since hemoglobin is around 7.4 we agree with transfusing the patient. Status: Acute Code(s): D64.9 - Anemia, unspecified (6) Atrial fibrillation and flutter: So far patient does not have any evidence of atrial fibrillation on telemetry. It is possible on the telemetry she had frequent PACs due to irregularity it was perceived as A. fib. I will discontinue Eliquis due to bleeding, ongoing anemia and since I don't have any concrete evidence for A. fib. At the time of discharge we will send her home on Plavix and aspirin. We will also ask for 21 days event monitor for A. fib investigation after that for the plan for continuation of Eliquis will be advised. Status: Acute Code(s): I48.91 - Unspecified atrial fibrillation; I48.92 - Unspecified atrial flutter Attestations Medical Necessity Statement*: Patient requires continuation hospitalization due to above defined care. Coding Level of Care Code Acute Back Tender Cylinder for lawrence Fwd Diagnoses CAD (coronary artery disease) I25.10 Congestive heart failure I50.9 Insulin dependent diabetes mellitus E11.9; Z79.4 Fatigue R53.83 Anemia D64.9 Atrial fibrillation and flutter I48.91; I48.92
[2019-06-20 15:43] LABS: Glucose Point of Care 324 mg/dL (70-110)
--- NOTE | 2019-06-20 17:15 | PM.PN ---
Subjective Subjective: Interval history: no new events overnight. Hb at 7.5. Receiving 2 units blood transfusion. Groin site with evolving hematoma, purple black skin changes. Medications: Reviewed: Yes Vitals/I&O/Wt Last Vital Signs Temp 98.2 F 06/20/19 16:30 Pulse 75 06/20/19 15:31 Resp 15 06/20/19 16:30 BP 139/106 06/20/19 16:30 Pulse Ox 94 06/20/19 15:14 06/20/19 06/20/19 06/20/19 06:59 14:59 22:59 Intake Total 590 / 590 700 / 1290 Balance 590 / 590 700 / 1290 Weight last 48 hrs Weight 105.052 kg Weight 105.052 kg Weight 104.825 kg Physical Exam Narrative: EXAM NARRATIVE: General awake alert and oriented. CVS S1-S2 is normal Respiratory system clear to auscultation bilaterally Extremities no pitting edema around the ankles. Groin site with dressing in place. R upper thigh with purple black skin changes from hematoma. No gross swelling. Abdomen soft nondistended nontender bowel sounds are positive Urinary Catheter Management^: Gonsalves: Cath Placed During This Visit: no A&P Assessment and plan (1) Congestive heart failure: Status: Acute Code(s): I50.9 - Heart failure, unspecified (2) Abnormal cardiovascular stress test: Status: Acute Code(s): R94.39 - Abnormal result of other cardiovascular function study (3) Atrial fibrillation and flutter: Status: Acute Code(s): I48.91 - Unspecified atrial fibrillation; I48.92 - Unspecified atrial flutter Additional A&P Information Additional A&P Information: Coronary artery disease status post angioplasty and proximal LAD stent placement. Continue on aspirin 81 and Plavix 75 mg p.o. daily. Upon discharge will plan for continuing aspirin and Plavix. Upon further review of EKGs it is not entirely clear if her irregular heart rate was truly A. fib versus sinus rhythm with multiple PACs. Upon discharge we will plan for a 21-day event monitor. If any true events of A. fib are noticed then patient would need to be changed in terms of anticoagulation to Plavix and Eliquis for the next 6 months with transition to aspirin and Eliquis eventually. At this time would be hesitant to use all 3 that is aspirin Plavix and Eliquis given the patient's globin is trending down and also just had a groin hematoma. Monitor H&H. Congestive heart failure Currently clinically euvolemic. Will reassess tomorrow morning and assess for further need of Lasix. Continue metoprolol and lisinopril New onset atrial fibrillation without RVR vs sinus rhythm with multiple APCs. Heart rate running between 70-90. Continue metoprolol for rate control Diabetes mellitus: Continue insulin Lantus and NovoLog sliding scale Undiagnosed hypertension Started on lisinopril for now and monitor and adjust medications accordingly Full code DVT prophylaxis scds Attestations Medical Necessity Statement*: management of post PCI hematoma and anemia Coding Level of Care Code Acute Disability Representative for Chg Fwd Diagnoses Congestive heart failure I50.9 Abnormal cardiovascular stress test R94.39 Atrial fibrillation and flutter I48.91; I48.92
[2019-06-20] MEDS: nitroglycerin 1 gm/inch oint Pkt 1 INCH TOPICAL (17:42)
[2019-06-20 21:13] LABS: Glucose Point of Care 354 mg/dL (70-110)
[2019-06-20] MEDS: insulin glargine 100 units/1 mL 10 UNIT SUBCUT (21:54)
[2019-06-21] VITALS (7 sets, daily range): BP systolic 133–145; BP diastolic 67–79; PULSE 61–71; RESP 11–25; TEMP 36.6–36.8; O2SAT 95–98
[2019-06-21 03:31] LABS: Basophils # 0.1 10^3/uL (0.0-0.1); Basophils % 0.9 %; Eosinophils # 0.2 10^3/uL (0.0-0.8); Eosinophils % 2.1 %; Hematocrit 28.6 % (37.0-47.0); Hemoglobin 9.5 g/dL (11.5-15.3); Lymphocytes % 22.9 %; Mean Corpuscular HGB Conc 33.2 g/dL (30.0-36.0); Mean Corpuscular Hemoglobin 28.1 pg (28.0-34.0); Mean Corpuscular Volume 84.6 fL (81-99); Monocytes # 0.7 10^3/uL (0.2-0.9); Monocytes % 8.2 %; Neutrophils # 5.7 10^3/uL (1.8-7.7); Neutrophils % 63.5 %; Nucleated Red Blood Cells % 0.2 %; Platelet Count 177 10^3/cmm (130-400); Red Blood Count 3.38 10^6/uL (4.1-5.3); Red Cell Distribution Width 13.6 % (12.1-15.1); White Blood Count 8.9 10^3/uL (4.0-10.0)
[2019-06-21 04:07] LABS: Alanine Aminotransferase 60 U/L (0-33); Albumin Level 3.9 g/dL (3.5-5.2); Alkaline Phosphatase 96 IU/L (35-105); Anion Gap 14.9 (5-19); Aspartate Amino Transferase 83 U/L (0-32); Blood Urea Nitrogen 33 mg/dL (6-20); Calcium 9.4 mg/Dl (8.6-10.0); Carbon Dioxide 23 mmol/L (22-29); Chloride 98 mmol/L (98-107); Globulin 2.5 g/dL (1.3-4.6); Glomerular Filtration Rate 56.7 mL/min (90-130); Glucose 236 mg/dL (74-109); Potassium 3.9 mmol/L (3.5-5.1); Sodium 132 mmol/L (136-145); Total Bilirubin 1.2 mg/dL (0.15-1.2); Total Protein 6.4 g/dL (6.6-8.7)
[2019-06-21 07:35] LABS: Glucose Point of Care 260 mg/dL (70-110)
[2019-06-21] MEDS: aspirin 81 mg EC Tablet PO (09:23)
[2019-06-21] MEDS: metoprolol tartrate 25 mg Tablet 12.5 MG PO (09:23)
[2019-06-21] MEDS: clopidogrel 75 mg Tablet PO (09:24)
[2019-06-21] MEDS: losartan 50 mg Tablet 25 MG PO (09:24)
[2019-06-21] MEDS: nitroglycerin 1 gm/inch oint Pkt 1 INCH TOPICAL (09:25)
[2019-06-21 11:26] LABS: Glucose Point of Care 293 mg/dL (70-110)
--- NOTE | 2019-06-21 13:39 | PM.DCS ---
Discharge Providers Date of Admission: 06/16/19 01:10 Date of Discharge: 06/21/19 Attending Provider at Admission: Aliyah Diallo MD Attending Provider at Discharge: Geovany Worthy MD Primary Care Provider: Chalino Keene MD Diagnoses at Discharge Discharge Diagnosis (1) Congestive heart failure: Status: Acute (2) Abnormal cardiovascular stress test: Status: Acute (3) Atrial fibrillation and flutter: Status: Acute Reason for Visit Reason for Visit: Reason For Visit: sob Hospital Course Discharge Summary: This is a 49-year-old female with past medical history of insulin-dependent diabetes who presented to the ER on June 16 complaining of shortness of breath. Upon initial evaluation she was thought to be in A. fib with controlled rate leading to congestive heart failure so she was treated with low-dose metoprolol, IV diuresis and was started on Eliquis for anticoagulation. During her stay patient complained of central chest pressure for which he underwent stress test which is suggestive of ischemia in LAD territory. After further IV diuresis patient underwent cardiac catheterization and she underwent angioplasty and PCI of proximal RCA with 2 overlapping drug-eluting stent for 99% long stenosis which is complicated with right groin hematoma and large bruising leading to blood loss anemia with a hemoglobin dropping as low as 7.4. She was transfused 2 units of PRBC and her hemoglobin improved to more than 9 on the day of discharge. Her groin hematoma also started showing resolution. Echocardiogram done during the stay showed mildly decreased LV systolic function but could not be quantified for our WMA due to poor echo window with pulmonary arterial pressure to be estimated of 33 mmHg. On further evaluation of her telemetry it was thought that patient most likely has premature atrial complex tachycardia rather than atrial fibrillation so her anticoagulation was stopped and she was continued on dual antiplatelet therapy for PCI. Patient is being discharged in hemodynamically stable condition, chest pain-free both while at rest and ambulation with advised to follow-up in cardiology office in 1 week and for an event monitor for 21 days for atrial fibrillation investigation. Eliquis and DAPT will be adjusted as per the result of the 21 days event monitor. Physical Exam Narrative: EXAM NARRATIVE: General: No acute distress, AO x3 HEENT: PERRLA, pupils bilaterally equal and reactive Chest: Normal vesicular breath sounds, no added sounds, equal good air entry bilaterally CVS: S1-S2 regular, no murmurs, no tachycardia, no gallops, no rubs Abdomen: Soft, nontender, no organomegaly, bowel sounds present Neuro: No focal deficits, no facial deformity, AO x3, power 5/5 in all limbs Groin: Diffuse resolving hematoma present in the right groin. Soft, tender. Urinary Catheter Management^: Gonsalves: Cath Placed During This Visit: no Discharge Data Data Completed and Pending: Completed Studies During Hospitalization Category Date Time Status SPINNING LATHE OPERATOR request for service Routin e Exams 06/18/19 08:30 Completed Sestamibi Stress Test Request Routi ne Exams 06/17/19 06:41 Completed XR chest 1V haroon ble [id number] Stat Exams 06/15/19 23:23 Completed NM myocardial per fusion stress rest [NM dorys perf SPEC T Nuc Med 06/17/19 06:43 Completed r&s* [id number]] Routi ne CV echo complete* [id number] Routine Ultrasound 06/16/19 05:09 Completed Pending at discharge Category Date Time Status Sestamibi Stress Test Request Routi ne Exams 06/16/19 10:01 Stop Req PACKED CELLS [Sherlyn kocyte Reduced RBC ] Routine Lab 06/18/19 12:05 Results Sputum Culture an d Gram Stain Stat Lab 06/15/19 23:23 Uncollected Type and Screen S tat Lab 06/18/19 12:05 Results Labs from last 24 hours 06/21/19 06/21/19 06/21/19 10:48 07:07 03:00 WBC RBC Hgb Hct MCV MCH MCHC RDW Plt Count MPV Neut % (Auto) Lymph % (Auto) Mcdowell % (Auto) Eos % (Auto) Baso % (Auto) Neut # (Auto) Lymph # (Auto) Mcdowell # (Auto) Eos # (Auto) Baso # (Auto) Nucleated RBC % (a uto) Nucleated RBCs # Sodium 132 L Potassium 3.9 Chloride 98 Carbon Dioxide 23 Anion Gap 14.9 BUN 33 H Creatinine 1.0 H GFR Calculation 56.7 L Glucose 236 H POC Glucose 293 260 Calcium 9.4 Total Bilirubin 1.2 AST 83 H ALT 60 H Alkaline Phosphata se 96 Total Protein 6.4 L Albumin 3.9 Globulin 2.5 Blood Type Antibody Screen Crossmatch 06/21/19 06/20/19 06/20/19 03:00 21:00 15:20 WBC 8.9 RBC 3.38 L Hgb 9.5 L D Hct 28.6 L D MCV 84.6 MCH 28.1 MCHC 33.2 RDW 13.6 Plt Count 177 MPV 12.0 H Neut % (Auto) 63.5 Lymph % (Auto) 22.9 Mcdowell % (Auto) 8.2 Eos % (Auto) 2.1 Baso % (Auto) 0.9 Neut # (Auto) 5.7 Lymph # (Auto) 2.0 Mcdowell # (Auto) 0.7 Eos # (Auto) 0.2 Baso # (Auto) 0.1 Nucleated RBC % (a uto) 0.2 Nucleated RBCs # 0.0 Sodium Potassium Chloride Carbon Dioxide Anion Gap BUN Creatinine GFR Calculation Glucose POC Glucose 354 324 Calcium Total Bilirubin AST ALT Alkaline Phosphata se Total Protein Albumin Globulin Blood Type Antibody Screen Crossmatch 06/18/19 12:05 WBC RBC Hgb Hct MCV MCH MCHC RDW Plt Count MPV Neut % (Auto) Lymph % (Auto) Mcdowell % (Auto) Eos % (Auto) Baso % (Auto) Neut # (Auto) Lymph # (Auto) Mcdowell # (Auto) Eos # (Auto) Baso # (Auto) Nucleated RBC % (a uto) Nucleated RBCs # Sodium Potassium Chloride Carbon Dioxide Anion Gap BUN Creatinine GFR Calculation Glucose POC Glucose Calcium Total Bilirubin AST ALT Alkaline Phosphata se Total Protein Albumin Globulin Blood Type A Negative Antibody Screen Negative Crossmatch See Detail Vitals: Last Vital Signs Temp 98.0 F 06/21/19 10:46 Pulse 66 06/21/19 10:46 Resp 25 H 06/21/19 10:46 BP 133/79 06/21/19 10:46 Pulse Ox 95 06/21/19 10:46 Discharge Plan Discharge Patient Disposition: Home, Self-Care Condition: Serious Prescriptions: New temazepam 15 mg Capsule 15 mg PO BEDTIME PRN (Reason: Insomnia) Qty: 5 RF: 0 alum-mag hydroxide-simeth [Mag-Al Plus] 200-200-20 mg/5 mL Suspension 30 ml PO Q15M PRN (Reason: Indigestion) 10 Days Qty: 50 RF: 0 metoprolol tartrate 25 mg Tablet 12.5 mg PO BID 90 Days Qty: 180 RF: 0 aspirin 81 mg Tablet,Delayed Release (Dr/Ec) 81 mg PO DAILY 90 Days Qty: 90 RF: 0 atorvastatin 40 mg Tablet 80 mg PO NOW 90 Days Qty: 90 RF: 0 clopidogrel 75 mg Tablet 75 mg PO DAILY 90 Days Qty: 90 RF: 0 nitroglycerin [Nitrostat] 0.4 mg Tablet, Sublingual 0.4 mg sublingual Q5M PRN (Reason: Chest Pain) Qty: 10 RF: 0 losartan 50 mg Tablet 25 mg PO DAILY 90 Days Qty: 90 RF: 0 ferrous sulfate 325 mg (65 mg iron) tablet,delayed release (DR/EC) 325 mg PO BID Qty: 30 RF: 0 furosemide [Lasix] 20 mg tablet 20 mg PO DAILY Qty: 20 RF: 0 Continued Novolin 70/30 U-100 Insulin 100 unit/mL (70-30) Suspension 40 unit SUBCUT BID RF: 0 Discontinued ibuprofen 200 mg Tablet 200 mg PO Q6H PRN (Reason: Pain) RF: 0 Mucinex 600 mg Tablet Extended Release 12hr 600 mg PO Q12H PRN (Reason: Congestion) RF: 0 Discharge Orders: Discharge Order (Routine); Ordered 06/21/19 Ordered By: Geovany Worthy Other Ambulatory Orders: Event Recorder, Cardiac (Routine) Timeframe: 1 Week Facility: [facility] - Location: Card[facility] Ordered By: Geovany Worthy Referrals: Aliyah Saunders MD [Physician] - Discharge Diet: Cardiac Discharge Activity: Resume usual activity Discharge Attestations Time Spent in Discharge Care*: greater than 30 min Specific Discharge Activities: Specific discharge activities: educating patient Status at Discharge: Cognitive status at discharge: cognitively intact, Behavioral status at discharge: cooperative, Functional status at discharge: independent ambulation Overall status at discharge: patient is back to baseline Quality Metrics Clinical Quality Measures During this hospital stay, did patient experience: AMI Clinical Trial Participant: No Contraindication to aspirin (AMI): Aspirin given Contraindication to statin: Statin prescribed Contraindication to PCI: PCI performed Contraindication to Fibrinolytics: Fibrinolytics given Coding Level of Care Code Acute Proof Reader for Cierra Fwd Diagnoses Congestive heart failure I50.9 Abnormal cardiovascular stress test R94.39 Atrial fibrillation and flutter I48.91; I48.92
--- NOTE | 2019-06-21 16:07 | PC.NURSE ---
Discharge to home with caregiver Instructed pt tof follow-up with her pcp and resident physician in radiology as discussed and outpatient tests. Post angiogram home care instructions discuss to pt. Discharge new meds, stopped meds and continued med were discuss and pt teaches back well. Pt left in stable condition. Ambulated down hallways
== END 2019-06-21 16:06 | disposition home or self-care (01) | DRG 246 ==
LOC: ER 23:22 → CSU 06-16 01:36
PROVIDERS: Internal Medicine Cardiovascular Disease; Student in an Organized Health Care Education/Training Program; Admitting Provider Internal Medicine; Emergency Provider Emergency Medicine; Visit Provider Student in an Organized Health Care Education/Training Program
PROC: 027035Z Dilation of Coronary Artery, One Artery with Two Drug-eluting Intraluminal Devices, Percutaneous Approach (ICD-10-PCS; principal; 2019-06-18 08:30)
PROC: 027035Z Dilation of Coronary Artery, One Artery with Two Drug-eluting Intraluminal Devices, Percutaneous Approach (ICD-10-PCS; 2019-06-18 08:30)
DX: I11.0 Hypertensive heart disease with heart failure (principal); I50.31 Acute diastolic (congestive) heart failure; I48.92 Unspecified atrial flutter; I48.91 Unspecified atrial fibrillation; Z79.4 Long term (current) use of insulin; E66.9 Obesity, unspecified; G47.33 Obstructive sleep apnea (adult) (pediatric); E11.65 Type 2 diabetes mellitus with hyperglycemia
CPT/HCPCS: 36415; 36416; 36430; 36592; 51702; 71045; 78452; 80048; 80051; 80053; 80061; 81001; 82803; 82810; 82962; 83036; 83605; 83735; 83880; 83986; 84443; 84484; 85014; 85018; 85025; 85347; 85378; 85730; 86850; 86900; 87040; 87086; 93005; 93017; 93306; 93454; 94660; 96372; 96374; 96375; 99282; A9500; C1725; C1757; C1769; C1874; C1887; C1894; C9600; J0171; J0330; J0461; J1265; J1644; J1815; J1940; J2001; J2250; J2270; J2405; J2785; J3010; J3246; J3490; J7030; P9016; Q0163; Q9967

== ENCOUNTER → 2019-07-02 12:26 | Outpatient (BNVA) | payer BC, SELFPAY | PROVIDERS: Visit Provider Nurse Practitioner Family | DX: I25.10 Atherosclerotic heart disease of native coronary artery without angina pectoris (principal); D64.9 Anemia, unspecified | CPT/HCPCS: 80048; 85025 ==

== ENCOUNTER 2019-07-30 03:03 | Inpatient (IN) | payer BC, SELFPAY ==
[2019-07-30] VITALS (22 sets, daily range): BP systolic 125–173; BP diastolic 73–96; PULSE 67–87; RESP 3–18; TEMP 36.5–36.7; O2SAT 93–99; BMI 36.3
--- NOTE | 2019-07-30 03:10 | XR_ITS ---
WS: [id number] XR chest 1V portable [id number] REASON FOR EXAM: cough FINDINGS: Comparisons were made to June 15, 2019. The pneumonia described in the right lower lung h as resolved completely. The lung sadler are otherwise clear there is no pneumonia. Pulmonary edema. There is no pleural effus ion noted. The hilum and apices are normal. No osseous abnormalities. XR/XR chest 1V portable [id number] IMPRESSION: Negative chest for active pathology.
--- NOTE | 2019-07-30 03:19 | ED_ITS ---
Entered by Jemma Paez, acting as scribe for Radha Mackay Loida Jul 30, 2019 03:03 HPI - Chest Pain General: Chief Complaint: Chest Pain Stated Complaint: CHEST PAIN Time Seen by Provider: 07/30/19 03:10 Source: patient and family Mode of arrival: ambulatory History of Present Illness: HPI narrative: 59 y/o female presents to the ED with complaint of chest pain. Pt was recently admitted for SD and stent placement. Pt states she woke up yesterday with sharp pain which continued into today. Pt states she has had nausea. She says this pain does not feel like her previous SD. MD complaint: chest pain Pertinent past history: prior SD Onset (ago): day(s) Timing of current episode: constant Prior episodes: Yes Onset: during rest Severity: mild Quality: sharp Relieving factors: nothing Associated symptoms: Reports nausea; Deny abdominal pain, diaphoresis, fever(s) or vomiting Review of Systems General: Reports: other (negative unless marked) Const: Denies: fever, chills, body aches, fatigue, malaise or diaphoresis Eyes: Denies: change in vision or blurry vision ENMT: Denies: throat pain, painful swallowing, hoarseness, ear pain, ear discharge, Change in hearing or nasal discharge Resp: Denies: productive cough, non-productive cough, wheezing, coughing up blood or chest congestion GI: Reports: nausea; Denies: abdominal pain, vomiting, vomiting blood, coffee grounds in vomit, diarrhea, constipation, cramping, blood in stool or black tarry stool : Denies: flank pain, painful urination, urinary frequency, urinary urgency, decreased urine ouput, urinary incontinence or blood in urine Musc: Denies: neck pain, back pain, extremity pain, extremity swelling, joint pain, joint swelling, joint warmth or joint stiffness Skin/Breast: Denies: rash, skin tenderness or yellow skin Neuro: Denies: headache, numbness in extremities, weakness in extremities, changes in sensation, lack of coordination, difficulty walking, dizziness, vertigo or confusion Endo: Denies: excessive thirst, tired all the time, cold intolerance, excessive sweating, flushing or hot flashes Servando/Lymph: Denies: easy bruising, easy bleeding, petechiae or enlarged lymph nodes All/Imm: Denies: hives, throat swelling, tongue swelling, facial swelling or acute wheezing PFSH ED PFSH: Medical History (Updated 07/02/19 @ 12:21 by RON Lopes) Diabetes Hypertension Insulin dependent diabetes mellitus Obesity Surgical History (Updated 07/02/19 @ 11:54 by RON Lopes) Hx of tubal ligation No pertinent past surgical history Family History (Updated 07/02/19 @ 11:33 by Fatmata Madera RN) Mother Diabetes Father Diabetes Lung disease Other Hypertension Denies family history of CAD (coronary artery disease) Clotting disorder Dementia Hyperlipidemia Psychiatric illness Chronic kidney disease (CKD) Suicide Anesthesia complication Bleeding disorder Family history of premature coronary artery disease Cancer Stroke Social History (Updated 07/02/19 @ 11:33 by Fatmata Madera RN) Smoking and tobacco status: former smoker Alcohol intake: never Lives independently: No Household members: spouse Physical Exam Const: COMMON NORMALS: no apparent distress, oriented x3, no limitations, healthy appearing and well nourished EXAM LIMITATIONS: no altered mental status GENERAL APPEARANCE: cooperative, well kempt and well developed ORIENTATION/CONSCIOUSNESS: Yes awake HENMT: COMMON NORMALS: normocephalic, head/scalp atraumatic, hearing grossly normal bilaterally, external ears normal, EAC's normal, external nose normal and moist oral mucous membranes HEAD & SCALP: normal to inspection, normocephalic and atraumatic FACE & SINUS: normal facial exam and face symmetric NOSE: external nose normal and nares normal EXTERNAL EAR: Yes external ears normal EXTERNAL AUDITORY CANAL: EAC's normal MOUTH: oral and palatal mucosa normal and tongue normal Eye: COMMON NORMALS: PERRL, EOMs intact bilaterally, conjunctivae normal and no scleral icterus GENERAL EYE: normal appearance of both eyes and normal light reflex CONJUNCTIVA: Yes conjunctivae normal SCLERA: sclerae normal CORNEA: Yes corneas normal PUPIL: Yes PERRL DIRECT OPHTHALMOSCOPY: Yes normal light reflex Neck/C-Spine: COMMON NORMALS: full ROM, no lymphadenopathy, supple and no meningeal signs GENERAL: Yes normal visual inspection and Yes trachea midline CERVICAL SPINE: Yes cervical ROM normal Chest: COMMONS NORMALS: inspection of chest normal and palpation of chest normal Resp: COMMON NORMALS: normal respiratory effort, no retractions, no use of accessory muscles and clear to auscultation bilaterally EFFORT & INSPECTION: Yes able to speak in complete sentences AUSCULTATION: clear to auscultation bilaterally GI: COMMON NORMALS: soft to palpation, non-tender, no hepatosplenomegaly and no masses INSPECTION: Yes normal to inspection PALPATION: Yes soft and Yes no hepatosplenomegaly : COMMON NORMALS: Yes no CVA tenderness BLADDER/KIDNEY EXAM: Yes no CVA tenderness Back/Pelvis: COMMON NORMALS: no CVA tenderness, thoracic and lumbar spine normal to inspection, no thoracic nor lumbar tenderness and thoraco-lumbar ROM normal Extremity: COMMON NORMALS: normal to inspection, full ROM, normal capillary refill, no joint enlargement, no clubbing, cyanosis or edema and no calf tenderness Neuro: COMMON NORMALS: oriented x3, CN's II-XII intact bilaterally, moves all extremities, no focal motor deficits and no sensory deficits noted MENINGEAL SIGNS: Yes no meningeal signs Psych: COMMON NORMALS: mental status grossly normal, thought process normal, cooperative, affect normal, speech normal and activity/motor behavior normal APPEARANCE: Yes well kempt SPEECH: Yes normal speech THOUGHT PROCESS: normal thought process Skin: COMMON NORMALS: no rashes or lesions noted, skin turgor normal, no jaundice, no petechiae and no mottling GENERAL SKIN EXAM: no rashes or lesions noted and turgor normal Course Vital Signs: Vital signs: Vital Signs Temperature 97.7 F 07/30/19 03:18 Pulse Rate 69 07/30/19 05:02 Respiratory Rate 16 07/30/19 05:02 Blood Pressure 147/78 07/30/19 05:02 Pulse Oximetry 98 07/30/19 05:02 MDM - Chest Pain MDM Narrative: Medical decision making narrative: Patient comes in with chest pain somewhat similar to her previous heart problems. Per review of her heart cath she has multiple lesions that were not stented last time that are up to 90% stenosed. I reviewed the case in full with Dr. Rachel who remembers the patient says he will cath her if necessary. Reviewed the case with Dr. Bowers she will admit. Lab Data: Labs: Lab Results 07/30/19 07/30/19 07/30/19 Range/Units 03:30 03:30 03:30 WBC 7.0 (4.0-10.0) 10^3/ uL RBC 4.18 (4.1-5.3) 10^6/u L Hgb 12.4 (11.5-15.3) g/dL Hct 36.7 L (37.0-47.0) % MCV 87.8 (81-99) fL MCH 29.7 (28.0-34.0) pg MCHC 33.8 (30.0-36.0) g/dL RDW 12.8 (12.1-15.1) % Plt Count 207 (130-400) 10^3/c mm MPV 10.3 (7.4-10.4) fL Neut % (Auto) 55.6 % Lymph % (Auto) 29.7 % Bailey % (Auto) 9.9 % Eos % (Auto) 3.7 % Baso % (Auto) 1.0 % Neut # (Auto) 3.9 (1.8-7.7) 10^3/u L Lymph # (Auto) 2.1 (0.8-4.8) 10^3/u L Bailey # (Auto) 0.7 (0.2-0.9) 10^3/u L Eos # (Auto) 0.3 (0.0-0.8) 10^3/u L Baso # (Auto) 0.1 (0.0-0.1) 10^3/u L Nucleated RBC % (a uto) 0 % Nucleated RBCs # 0.0 /100WBC Sodium 136 (136-145) mmol/L Potassium 3.9 (3.5-5.1) mmol/L Chloride 100 (98-107) mmol/L Carbon Dioxide 24 (22-29) mmol/L Anion Gap 15.9 (5-19) BUN 18 (6-20) mg/dL Creatinine 0.9 (0.5-0.9) mg/dL GFR Calculation 64.1 L (90-130) mL/min Glucose 187 H (65-115) mg/dL Calcium 9.6 (8.5-10.5) mg/dL Magnesium 2.3 (1.7-2.3) mg/dL Total Bilirubin 0.3 (0.15-1.2) mg/dL AST 15 (0-32) U/L ALT 15 (0-33) U/L Alkaline Phosphata se 68 (35-105) IU/L Troponin T Baselin e 14 H (0-10) ng/mL NT-Pro-B Natriuret Pep 870 H (0-125) pg/mL Total Protein 7.2 (6.6-8.7) g/dL Albumin 3.7 (3.5-5.2) g/dL Globulin 3.5 (1.3-4.6) g/dL Lipase 91 H (13-60) U/L Imaging Data^: CXR: My impression: No acute cardiopulmonary findings. EKG Data^: EKG 1: Attestation: I personally reviewed and interpreted this EKG as follows: EKG interpretation date: 07/30/19 EKG interpretation time: 03:23 Interpretation: Normal sinus rhythm at 66 beats a minute, left bundle branch block, similar to previous. Discharge Plan Discharge Prescriptions: No Action Lasix 20 mg tablet 20 mg PO DAILY Qty: 30 RF: 5 ferrous sulfate 325 mg (65 mg iron) tablet,delayed release (DR/EC) 325 mg PO BID Qty: 30 RF: 0 Novolin 70/30 U-100 Insulin 100 unit/mL (70-30) Suspension 40 unit SUBCUT BID RF: 0 losartan 50 mg Tablet 25 mg PO DAILY 90 Days Qty: 90 RF: 0 atorvastatin 40 mg Tablet 80 mg PO NOW 90 Days Qty: 90 RF: 0 clopidogrel 75 mg Tablet 75 mg PO DAILY 90 Days Qty: 90 RF: 0 aspirin 81 mg Tablet,Delayed Release (Dr/Ec) 81 mg PO DAILY 90 Days Qty: 90 RF: 0 temazepam 15 mg Capsule 15 mg PO BEDTIME PRN (Reason: Insomnia) Qty: 5 RF: 0 Nitrostat 0.4 mg Tablet, Sublingual 0.4 mg sublingual Q5M PRN (Reason: Chest Pain) Qty: 10 RF: 0 metoprolol tartrate 25 mg Tablet 12.5 mg PO BID 90 Days Qty: 180 RF: 0 Referrals: Chalino Keene MD [Primary Care Provider] - Coding Level of Care Code ED Car Changer for Chg Fwd Exam Comprehensive The documentation recorded by the Philippe daniel Ashley, accurately reflects the service I personally performed and the decisions made by Thompson avendaño Eli N Jul 30, 2019 03:03
[2019-07-30 03:35] LABS: Basophils # 0.1 10^3/uL (0.0-0.1); Eosinophils # 0.3 10^3/uL (0.0-0.8); Eosinophils % 3.7 %; Hematocrit 36.7 % (37.0-47.0); Hemoglobin 12.4 g/dL (11.5-15.3); Lymphocytes # 2.1 10^3/uL (0.8-4.8); Lymphocytes % 29.7 %; Mean Corpuscular HGB Conc 33.8 g/dL (30.0-36.0); Mean Corpuscular Hemoglobin 29.7 pg (28.0-34.0); Mean Corpuscular Volume 87.8 fL (81-99); Mean Platelet Volume 10.3 fL (7.4-10.4); Monocytes # 0.7 10^3/uL (0.2-0.9); Monocytes % 9.9 %; Neutrophils # 3.9 10^3/uL (1.8-7.7); Neutrophils % 55.6 %; Nucleated Red Blood Cells % 0 %; Platelet Count 207 10^3/cmm (130-400); Red Blood Count 4.18 10^6/uL (4.1-5.3); Red Cell Distribution Width 12.8 % (12.1-15.1)
[2019-07-30] MEDS: aspirin 325 mg Tablet PO (03:37)
[2019-07-30] MEDS: sodium chloride 0.9% 1,000 ML 100 ML IV (03:38)
[2019-07-30] MEDS: nitroglycerin 0.4 mg sublingual Tablet SUBLINGUAL ×2 (03:38→03:43)
[2019-07-30 03:52] LABS: Anion Gap 15.9 (5-19); Aspartate Amino Transferase 15 U/L (0-32); Blood Urea Nitrogen 18 mg/dL (6-20); Calcium 9.6 mg/dL (8.5-10.5); Carbon Dioxide 24 mmol/L (22-29); Chloride 100 mmol/L (98-107); Glomerular Filtration Rate 64.1 mL/min (90-130); Glucose 187 mg/dL (65-115); Lipase 91 U/L (13-60); Magnesium 2.3 mg/dL (1.7-2.3); Potassium 3.9 mmol/L (3.5-5.1); Sodium 136 mmol/L (136-145); Total Bilirubin 0.3 mg/dL (0.15-1.2); Total Protein 7.2 g/dL (6.6-8.7)
[2019-07-30 04:18] LABS: Alanine Aminotransferase 15 U/L (0-33); Albumin Level 3.7 g/dL (3.5-5.2); Alkaline Phosphatase 68 IU/L (35-105); Globulin 3.5 g/dL (1.3-4.6); NT Pro B Type Natriuretic Pept 870 pg/mL (0-125); Troponin(5th) Baseline 14 ng/mL (0-10)
[2019-07-30] MEDS: nitroglycerin 1 gm/inch oint Pkt 1 INCH TOPICAL (04:25)
--- NOTE | 2019-07-30 04:30 | PC.NURSE ---
Patient reorts heaviness and pain is all but gone now after the nitro paste applied.
--- NOTE | 2019-07-30 04:57 | PC.NURSE ---
Patient states that her chest pain is located in the center of her chest and started yesterday. Patient states that pain radiated from the neck in to both shoulders and the sides. Patient states she had a heart attack june 15 2019. Patient states she has two stents. Patient stated she took a nitro before arrival and her bedtime medications.
--- NOTE | 2019-07-30 05:11 | ECG_ITS ---
Measurements Intervals [place] Rate: 63 P: 11 [place]: 191 QRS: -22 QRSD: 142 T: 134 QT: 446 QTc: 458 SINUS RHYTHM WITH OCCASIONAL SUPRAVENTRICULAR PREMATURE COMPLEXES LEFT BUNDLE BRANCH BLOCK [120+ ms QRS DURATION, 80+ ms Q/S IN V1/V2, 85+ ms R IN I/aVL/V5/V6] Compared to ECG 06/19/2019 16:06:04 No significant changes Electronically Signed On 07-30-2019 18:03:01 DANCE INSTRUCTOR by Shirin Metzger M.D. [id number]
[2019-07-30 06:01] LABS: Troponin 5 2HR 15.75 ng/mL (0-10); Troponin 5 2HR Delta 1.75 ABS# (0-10)
--- NOTE | 2019-07-30 07:18 | P.HP_ITS ---
Providers/Chief Complaint Admitting Physician: Mari Bowers MD Primary Care Provider: Chalino Keene MD Chief Complaint: CHEST PAIN History of Present Illness Rachel Malhotra is a 59 year old female past medical history of insulin-dependent diabetes who was admitted between 06/16-06/21 after p/w what was thought to be A. fib with controlled rate leading to congestive heart failure so she was treated with low-dose metoprolol, IV diuresis and was started on Eliquis for anticoagulation. During her stay patient complained of central chest pressure for which he underwent stress test suggestive of ischemia in LAD territory. After further IV diuresis patient underwent cardiac catheterization and she underwent angioplasty and PCI of proximal RCA with 2 overlapping drug-eluting stent for 99% long stenosis which was complicated with right groin hematoma and blood loss anemia requiring transfusion. Echocardiogram done during the stay showed mildly decreased LV systolic function but could not be quantified for RWMA. On further evaluation of her telemetry it was thought that patient most likely has premature atrial complex tachycardia rather than atrial fibrillation so her anticoagulation was stopped and she was continued on dual antiplatelet therapy for PCI. she followed up with cardiology on July 02 as an outpatient, did not get the event monitor. At the office visit she was noted to have sinus rhythm with PACs and monitor was deferred. She was chest pain-free until yesterday when she started to develop the central chest pressure again. The pain is intermittent, 6-7 out of 10 in intensity, no apparent exacerbating or relieving factors. This pain is currently radiating into his left arm and has tingling over the lateral 3 digits. No radiation to jaw or neck. Denies any complaints of dyspnea or tachypnea or paroxysmal nocturnal dyspnea. She is taking all of her medications as prescribed without any interruptions. EKG performed in the ER today shows sinus rhythm with PACs and known left bundle branch block. There are no acute changes compared to pr evious admission. Baseline troponin is 14 over troponin of 0.75 with a delta of 1.75. Renal and liver function are stable. Currently blood pressure is 125/73, heart rate 71, O2 saturation 97% on room air. Review of Systems General: Reports: 10 or more systems reviewed and unremarkable except in HPI and below Const: Denies: fever, chills or body aches Eyes: Denies: change in vision, blurry vision or photophobia ENMT: Reports: hoarseness; Denies: throat pain, enlarged tonsils, painful swallowing or nasal congestion Card: Reports: chest pain; Denies: palpitations, irregular heart rhythm, edema, swelling of feet/ankles, lightheadedness, pre-syncope, shortness of breath on exertion or shortness of breath when lying down Resp: Denies: shortness of breath, productive cough, non-productive cough, wheezing, stridor, pain on inspiration, change in phlegm color, coughing up blood or chest congestion GI: Denies: abdominal pain, nausea, vomiting, vomiting blood, coffee grounds in vomit, difficulty swallowing, heartburn/indigestion, diarrhea, constipation, cramping, change in stool character, blood in stool or black tarry stool : Denies: flank pain, difficulty urinating, painful urination, urinary frequency, urinary urgency, urinary hesitancy or blood in urine Musc: Denies: neck pain, back pain, extremity pain, joint swelling, joint warmth or deformity Neuro: Denies: headache, numbness in extremities, weakness in extremities, changes in sensation, difficulty walking, frequent falls, dizziness, vertigo, behavioral changes, slurred speech or seizure-like activity Psych: Denies: anxiety, depression, suicidal ideation or homicidal ideation Endo: Denies: excessive urination, excessive thirst, tired all the time, cold intolerance or hot flashes Servando/Lymph: Denies: easy bruising or easy bleeding Medications/Allergies Allergies Allergy/AdvReac Type Severity Reaction Status Date / Time lisinopril AdvReac Intermediate Severe Verified 06/16/19 04:09 Cough PFSH Acute PFSH: Medical History Diabetes Hypertension Insulin dependent diabetes mellitus Obesity Surgical History Hx of tubal ligation No pertinent past surgical history Family History Mother Diabetes Father Diabetes Lung disease Other Hypertension Denies family history of CAD (coronary artery disease) Clotting disorder Dementia Hyperlipidemia Psychiatric illness Chronic kidney disease (CKD) Suicide Anesthesia complication Bleeding disorder Family history of premature coronary artery disease Cancer Stroke Social History Smoking and tobacco status: former smoker Alcohol intake: never Lives independently: No Household members: spouse Vitals/I&O/Wt Last Vital Signs Temp 97.7 F 07/30/19 03:18 Pulse 71 07/30/19 06:52 Resp 17 07/30/19 06:00 BP 125/73 07/30/19 06:52 Pulse Ox 97 07/30/19 06:52 Weight last 48 hrs Weight 105.233 kg Physical Exam Narrative: EXAM NARRATIVE: GEN: Awake, alert and oriented, no acute distress CVS: S1S2 N RS: CTA B/L Abd: Soft, nt/nd , bs+ EMERGENCY DEPARTMENT MANAGER: no focal neuro deficits Ext: No cyanosis clubbing or edema. Data : 07/30/19 03:30 07/30/19 03:30 Other data: June 18, 2019 procedure Description: Coronary Angiography Diagnostic Findings LM has 0% stenosis. pLAD: Mild 30% stenosis, ESTRELLA: 3 flow. dLAD: Severe 90% stenosis, ESTRELLA: 2 flow. dCIRC: Severe 90% stenosis, ESTRELLA: 2 flow. Proximal Right Coronary Artery: Severe 99% stenosis, ESTRELLA: 2 flow. Coronary angiography shows right dominance. Echocardiogram June 16 CONCLUSIONS 1. Normal left ventricular cavity size. Probably mildly decraesed left ventricular systolic function. The study is inadequate for estimation of regional wall motion abnormality. Abnormal septal motion consistent with conduction abnormality. 2. Normal right ventricular size and systolic function. 3. Mild mitral valve regurgitation. 4. Pulmonary artery pressure estimated at 33 mm Hg. 5. Recommend repeat study with ultrasound enhancing agent. A&P Assessment and plan (1) CAD (coronary artery disease): Status: Acute Qualifiers: Coronary Disease-Associated Artery/Lesion type: [place] artery [place] vs. transplanted heart: [place] heart Associated angina: angina presence unspecified Qualified Code(s): I25.10 - Atherosclerotic heart disease of [place] coronary artery without angina pectoris Code(s): I25.10 - Atherosclerotic heart disease of [place] coronary artery without angina pectoris (2) Congestive heart failure: Status: Acute Qualifiers: Heart failure type: systolic Heart failure chronicity: unspecified Qualified Code(s): I50.20 - Unspecified systolic (congestive) heart failure Code(s): I50.9 - Heart failure, unspecified (3) Insulin dependent diabetes mellitus: Status: Acute Code(s): E11.9 - Type 2 diabetes mellitus without complications; Z79.4 - correction (current) use of insulin (4) Unstable angina pectoris: Status: Acute Code(s): I20.0 - Unstable angina Additional A&P Information Admit to CSU No acute ST-T changes delta troponin at 1.75 less likely suggestive of ACS Recently status post stenting to the RCA. Was also noted to have severe 90% stenosis in the distal LAD and 90% stenosis in the distal circumflex. Recent st ress test also showed ischemic changes in the LAD territory. Continue aspirin, Plavix, atorvastatin, metoprolol at home dosing Hold losartan for now in case patient goes for cardiac catheterization Keep n.p.o. for above reason Cardiology consult with Dr. Saunders-called from ER For history of CHF continue Lasix 20 mg daily. Currently patient is euvolemic For diabetes mellitus: Start aggressive insulin sliding scale Hypertension: Currently blood pressure well controlled at 125/73 DVT prophylaxis Lovenox Full code Attestations Medical Necessity Statement*: Anticipate less than 2 midnights under observa tion for work-up of chest pain/angina Coding Level of Care Code Acute Ese Teacher for g Fwd Diagnoses CAD (coronary artery disease) I25.10 Coronary Disease-Associated Artery/Lesion type: [place] artery [place] vs. transplanted heart: [place] heart Associated angina: angina presence unspecified Congestive heart failure I50.20 Heart failure type: systolic Heart failure chronicity: unspecified Insulin dependent diabetes mellitus E11.9; Z79.4 Unstable angina pectoris I20.0
--- NOTE | 2019-07-30 09:11 | ECG_ITS ---
Measurements Intervals [place] Rate: 71 P: 34 OR: 195 QRS: -24 QRSD: 144 T: 147 QT: 446 QTc: 487 SINUS RHYTHM WITH FREQUENT SUPRAVENTRICULAR PREMATURE COMPLEXES LEFT BUNDLE BRANCH BLOCK Compared to ECG 06/19/2019 16:06:04 No significant changes Electronically Signed On 07-30-2019 17:21:31 [employer] REPRESENTATIVES by Shirin Metzger M.D. [id number]
--- NOTE | 2019-07-30 09:14 | PC.NURSE ---
Patient resting at this time. No needs.
[2019-07-30 09:42] LABS: Troponin 5 6HR 14.58 ng/mL (0-10); Troponin 5 6HR Delta 0.58 ng/L (0-12)
[2019-07-30] MEDS: ondansetron 2 mg/ML SDV 2 mL 4 MG IVP (13:06)
[2019-07-30] MEDS: morphine 4 mg/mL SDV 1 mL IVP (13:06)
--- NOTE | 2019-07-30 13:11 | PM.PN ---
Subjective Subjective: Interval history: This morning patient was examined in the emergency room, patient states that she still having some mild degree of chest pain, about a 3 out of 10, but much improved compared to earlier this morning, she thought she was maybe having acid reflux, but symptoms persisted, thus she presented emergency room for evaluation, has no other significant complaints Vitals/I&O/Wt Last Vital Signs Temp 97.7 F 07/30/19 03:18 Pulse 71 07/30/19 06:52 Resp 14 07/30/19 13:06 BP 125/73 07/30/19 06:52 Pulse Ox 97 07/30/19 06:52 Weight last 48 hrs Weight 105.233 kg Physical Exam Const: COMMON NORMALS: no apparent distress and oriented x3 HENMT: COMMON NORMALS: normocephalic HEAD & SCALP: normocephalic Neck/C-Spine: COMMON NORMALS: no JVD Resp: COMMON NORMALS: normal respiratory effort, no retractions, no use of accessory muscles and clear to auscultation bilaterally AUSCULTATION: clear to auscultation bilaterally Cardio: COMMON NORMALS: no JVD, regular rate, regular rhythm, S1 normal heart sound and S2 normal heart sound RATE: regular rate RHYTHM: regular rhythm HEART SOUNDS: S1 normal and S2 normal GI: COMMON NORMALS: normal to inspection, nondistended, normoactive bowel sounds, soft to palpation, non-tender, no hepatosplenomegaly, no masses and no bruits PALPATION: Yes soft and Yes no hepatosplenomegaly Extremity: COMMON NORMALS: normal capillary refill, no clubbing, cyanosis or edema, no calf tenderness and no pedal edema Neuro: COMMON NORMALS: oriented x3 Psych: COMMON NORMALS: mental status grossly normal Data : 07/30/19 03:30 07/30/19 03:30 A&P Assessment and plan (1) CAD (coronary artery disease): Status: Acute Qualifiers: Coronary Disease-Associated Artery/Lesion type: [place] artery [place] vs. transplanted heart: [place] heart Associated angina: angina presence unspecified Qualified Code(s): I25.10 - Atherosclerotic heart disease of [place] coronary artery without angina pectoris Code(s): I25.10 - Atherosclerotic heart disease of [place] coronary artery without angina pectoris (2) Congestive heart failure: Status: Acute Qualifiers: Heart failure type: systolic Heart failure chronicity: unspecified Qualified Code(s): I50.20 - Unspecified systolic (congestive) heart failure Code(s): I50.9 - Heart failure, unspecified (3) Insulin dependent diabetes mellitus: Status: Acute Code(s): E11.9 - Type 2 diabetes mellitus without complications; Z79.4 - manager terminal (current) use of insulin (4) Unstable angina pectoris: Status: Acute Code(s): I20.0 - Unstable angina Additional A&P Information Admit to CSU No acute ST-T changes delta troponin at 0.58 less likely suggestive of ACS Recently status post stenting to the RCA. Was also noted to have severe 90% stenosis in the distal LAD and 90% stenosis in the distal circumflex. Recent stress test also showed ischemic changes in the LAD territory. Continue aspirin, Plavix, atorvastatin, metoprolol at home dosing Hold losartan for now in case patient goes for cardiac catheterization Keep n.p.o. for above reason Cardiology consult with Dr. Saunders-jd from ER For history of CHF continue Lasix 20 mg daily. Currently patient is euvolemic For diabetes mellitus: Start aggressive insulin sliding scale Hypertension: Currently blood pressure well controlled at 125/73 DVT prophylaxis Lovenox Full code Attestations Medical Necessity Statement*: Patient requires continued hospitalization for chest pain Coding Level of Care Code Acute Him Clerk for C[place] Diagnoses CAD (coronary artery disease) I25.10 Coronary Disease-Associated Artery/Lesion type: [place] artery [place] vs. transplanted heart: [place] heart Associated angina: angina presence unspecified Congestive heart failure I50.20 Heart failure type: systolic Heart failure chronicity: unspecified Insulin dependent diabetes mellitus E11.9; Z79.4 Unstable angina pectoris I20.0
--- NOTE | 2019-07-30 16:06 | PC.NURSE ---
morphine and zofran reported given in ER not scanned off AUG will continue to monitor pain Patient has no complaints of chest pain at this time
[2019-07-30 16:25] LABS: Glucose Point of Care 201 mg/dL (70-110)
[2019-07-30 16:48] LABS: NT Pro B Type Natriuretic Pept 877 pg/mL (0-125)
[2019-07-30] MEDS: aspirin 81 mg EC Tablet PO (17:30)
[2019-07-30] MEDS: atorvastatin 40 mg Tablet 80 MG PO (17:30)
[2019-07-30] MEDS: metoprolol tartrate 25 mg Tablet 12.5 MG PO (17:31)
[2019-07-30] MEDS: FUROsemide 20 mg Tablet PO (17:31)
[2019-07-30] MEDS: clopidogrel 75 mg Tablet PO (17:32)
[2019-07-30] MEDS: enoxaparin 40 mg/0.4 mL Syringe SUBCUT (17:32)
--- NOTE | 2019-07-30 18:58 | PM.CONSULT ---
Providers/Reason For Consult Consulting Physican/Specialty*: Cardiology Reason for Consult*: Abnormal stress test Chest pain Attending Physician: Mari Bowers MD Primary Care Provider: Chalino Keene MD History of Present Illness History of Present Illness Rachel Malhotra is a 59 year old female Past medical history significant for coronary artery disease status post drug-eluting stent to RCA and moderate nonobstructive lesion in the proximal LAD who was admitted with worsening of chest pain going on for the last few weeks despite of optimization of medical management. This is patient's second admission with chest pain. Couple of weeks ago patient was admitted to the hospital with chest pain she was ruled out for acute coronary syndrome stress test was performed which showed mild to moderate ischemia in LAD territory. It was suggested to further optimize medical management however patient continues to do worse now at mild to moderate exertion bring on and at times it becomes more consistent at rest. Yesterday when chest pain became more consistent and reoccurred at different intervals therefore she decided to come to the hospital. She denies PND orthopnea presyncope syncope. Currently she is chest pain-free . Review of Systems General: Reports: 10 or more systems reviewed and unremarkable except in HPI and below and other (negative unless marked) Const: Denies: fever, chills, body aches, fatigue, malaise or diaphoresis Eyes: Denies: change in vision, blurry vision or photophobia ENMT: Reports: hoarseness; Denies: throat pain, enlarged tonsils, painful swallowing, ear pain, ear discharge, change in hearing, nasal discharge or nasal congestion Card: Reports: chest pain; Denies: palpitations, irregular heart rhythm, edema, swelling of feet/ankles, lightheadedness, pre-syncope, shortness of breath on exertion or shortness of breath when lying down Resp: Denies: shortness of breath, productive cough, non-productive cough, wheezing, stridor, pain on inspiration, change in phlegm color, coughing up blood or chest congestion GI: Denies: abdominal pain, nausea, vomiting, vomiting blood, coffee grounds in vomit, difficulty swallowing, heartburn/indigestion, diarrhea, constipation, cramping, change in stool character, blood in stool or black tarry stool : Denies: flank pain, difficulty urinating, painful urination, urinary frequency, urinary urgency, urinary hesitancy, decreased urine ouput, urinary incontinence or blood in urine Musc: Denies: neck pain, back pain, extremity pain, extremity swelling, joint pain, joint swelling, joint warmth, joint stiffness or deformity Skin/Breast: Reports: surgical incision; Denies: rash, skin tenderness or yellow skin Neuro: Denies: headache, numbness in extremities, weakness in extremities, changes in sensation, lack of coordination, difficulty walking, frequent falls, dizziness, vertigo, confusion, behavioral changes, slurred speech or seizure-like activity Psych: Denies: anxiety, depression, suicidal ideation or homicidal ideation Endo: Denies: excessive urination, excessive thirst, tired all the time, cold intolerance, excessive sweating, flushing or hot flashes Servando/Lymph: Denies: easy bruising, easy bleeding, petechiae or enlarged lymph nodes All/Imm: Denies: hives, throat swelling, tongue swelling, facial swelling or acute wheezing Meds/Allergies Home Medications and Allergies Home Medications Medication Instructions Recorded Confirmed Type Novolin 70/30 U-100 Insulin 40 unit SUBCUT BID 06/16/19 07/30/19 History atorvastatin 80 mg PO DAILY 07/30/19 07/30/19 History Allergies Allergy/AdvReac Type Severity Reaction Status Date / Time lisinopril AdvReac Intermediate Severe Verified 06/16/19 04:09 Cough Current Medications Current Medications Generic Name Dose Route Start Last Admin Trade Name Freq PRN Reason Stop Dose Admin Aspirin 81 mg 07/30/19 16:00 07/30/19 17:30 Aspirin Ec PO 81 mg DAILY FAITH Administration Atorvastatin Calcium 80 mg 07/30/19 16:00 07/30/19 17:30 Lipitor PO 80 mg DAILY FAITH Administration Clopidogrel Bisulfate 75 mg 07/30/19 15:31 07/30/19 17:32 Plavix PO 75 mg DAILY FAITH Administration Enoxaparin Sodium 40 mg 07/30/19 15:31 07/30/19 17:32 Lovenox SUBCUT 40 mg Q24H FAITH Administration Furosemide 20 mg 07/30/19 15:31 07/30/19 17:31 Lasix PO 20 mg DAILY FAITH Administration Sodium Chloride 1,000 mls @ 100 mls/hr 07/30/19 15:31 07/30/19 17:09 Sodium Chloride 0.9% IV Not Given .Q10H FAITH Insulin Aspart 0 unit 07/30/19 15:31 07/30/19 18:27 Novolog SUBCUT 8 unit WM&BEDTIME FAITH Administration Protocol Metoprolol Tartrate 12.5 mg 07/30/19 15:31 07/30/19 18:09 Lopressor PO Not Given BID AFITH Nitroglycerin 0.4 mg 07/30/19 03:10 07/30/19 03:43 Nitrostat SUBLINGUAL 0.4 mg Q5M PRN Administration CHEST PAIN PFSH Acute PFSH: Medical History Diabetes Hypertension Insulin dependent diabetes mellitus Obesity Surgical History Hx of tubal ligation No pertinent past surgical history Family History Mother Diabetes Father Diabetes Lung disease Other Hypertension Denies family history of CAD (coronary artery disease) Clotting disorder Dementia Hyperlipidemia Psychiatric illness Chronic kidney disease (CKD) Suicide Anesthesia complication Bleeding disorder Family history of premature coronary artery disease Cancer Stroke Social History Smoking and tobacco status: former smoker Alcohol intake: never Lives independently: No Household members: spouse Dietary Habits: Current diet type/program: low salt and low carbohydrate Caffeine: Yes Caffeine intake frequency: carbonated beverages and coffee High-fat food intake: 3 or more times/day Daily servings fruits/vegetables: 0-1 Daily servings of milk/calcium: 0-1 Eating out: 1-3 times/week Reads food labels: sometimes During the past year weight has: increased > 10 lbs Exercise: What type of physical activity do you participate in?: none Physical activity functional status: normal ROM and activity How many days of moderate to strenuous exercise, like a brisk walk, did you do in the last 7 days: 0 Vitals/I&O/Wt Last Vital Signs Temp 97.8 F 07/30/19 18:50 Pulse 77 07/30/19 18:50 Resp 18 07/30/19 18:50 BP 134/73 07/30/19 18:50 Pulse Ox 93 07/30/19 18:50 07/30/19 07/30/19 07/30/19 06:59 14:59 22:59 Intake Total 120 / 120 Balance 120 / 120 Weight last 48 hrs Weight 232 lb Physical Exam Narrative: EXAM NARRATIVE: GENERAL: Patient is alert, awake and oriented x3. NECK: No jugular vein distension. HEENT: No cyanosis. No icterus. No pallor. HEART: Regular S1 and S2. No murmur, rub or gallop. LUNGS: Clear to auscultate bilaterally. ABDOMEN: Soft, nontender and nondistended. Positive bowel sounds. No guarding, rebound or tenderness. CENTRAL NERVOUS SYSTEM: Grossly nonfocal. EXTREMITIES: Lower extremities without edema bilaterally. Pulses palpable in the lower extremities, both dorsalis pedis and posterior tibial. Data Micro: Micro: SINUS RHYTHM WITH FREQUENT SUPRAVENTRICULAR PREMATURE COMPLEXES LEFT BUNDLE BRANCH BLOCK Compared to ECG 06/19/2019 16:06:04 No significant changes A&P Assessment and plan (1) Congestive heart failure: Appeared well compensated. Continue current regimen Status: Acute Qualifiers: Heart failure type: systolic Heart failure chronicity: unspecified Qualified Code(s): I50.20 - Unspecified systolic (congestive) heart failure Code(s): I50.9 - Heart failure, unspecified (2) Abnormal cardiovascular stress test: Patient has abnormal stress test suggesting of ischemia in LAD territory. She has moderate stenosis In LAD territory which was thought to be managed medically however for the last few month patient has been having symptoms despite optimal medical management and now she presented with unstable anginal-like picture, We'll proceed with coronary angiogram tomorrow. Patient has been explained all this benefited and alternative for the procedure. She would like to proceed with it. Further plan and advised as per progress of the patient Status: Acute Code(s): R94.39 - Abnormal result of other cardiovascular function study (3) Unstable angina pectoris: Currently patient is chest pain-free continue medical management. Patient has been scheduled for left heart catheterization/PCI if indicated in the morning Status: Acute Code(s): I20.0 - Unstable angina Coding Level of Care Code New Pt Acute Utility Appraiser for [facility] Fwd Patient Type New History Expanded Problem Focused Exam Expanded Problem Focused Medical Decision Making Moderate Complexity Diagnoses Congestive heart failure I50.20 Heart failure type: systolic Heart failure chronicity: unspecified Abnormal cardiovascular stress test R94.39 Unstable angina pectoris I20.0
[2019-07-30 20:22] LABS: Glucose Point of Care 216 mg/dL (70-110)
--- NOTE | 2019-07-30 20:40 | PC.NURSE ---
Nighttime insulin not given due to patient being NPO for procedure tomorrow. Blood glucose is 216.
--- NOTE | 2019-07-30 21:09 | PC.NURSE ---
Amend previous note. 8 units bedtime insulin given per order.
[2019-07-31] VITALS (17 sets, daily range): BP systolic 123–162; BP diastolic 65–91; PULSE 66–75; RESP 9–26; TEMP 36.5–36.9; O2SAT 92–98
[2019-07-31 04:02] LABS: Basophils # 0.1 10^3/uL (0.0-0.1); Basophils % 0.9 %; Eosinophils # 0.3 10^3/uL (0.0-0.8); Hematocrit 35.9 % (37.0-47.0); Hemoglobin 11.9 g/dL (11.5-15.3); Lymphocytes # 2.1 10^3/uL (0.8-4.8); Mean Corpuscular HGB Conc 33.1 g/dL (30.0-36.0); Mean Corpuscular Hemoglobin 29.2 pg (28.0-34.0); Mean Corpuscular Volume 88.2 fL (81-99); Mean Platelet Volume 10.9 fL (7.4-10.4); Monocytes # 0.6 10^3/uL (0.2-0.9); Monocytes % 8.8 %; Neutrophils # 3.7 10^3/uL (1.8-7.7); Neutrophils % 55.2 %; Nucleated Red Blood Cells % 0 %; Platelet Count 187 10^3/cmm (130-400); Red Blood Count 4.07 10^6/uL (4.1-5.3); Red Cell Distribution Width 12.7 % (12.1-15.1); White Blood Count 6.7 10^3/uL (4.0-10.0)
[2019-07-31 04:19] LABS: Alanine Aminotransferase 13 U/L (0-33); Albumin Level 3.4 g/dL (3.5-5.2); Alkaline Phosphatase 62 IU/L (35-105); Anion Gap 16.2 (5-19); Aspartate Amino Transferase 15 U/L (0-32); Blood Urea Nitrogen 18 mg/dL (6-20); Calcium 9.6 mg/dL (8.5-10.5); Carbon Dioxide 24 mmol/L (22-29); Chloride 99 mmol/L (98-107); Globulin 3.2 g/dL (1.3-4.6); Glomerular Filtration Rate 64.1 mL/min (90-130); Glucose 246 mg/dL (65-115); Osmolality Calculated 285 mOsm/kg (285-295); Potassium 4.2 mmol/L (3.5-5.1); Sodium 135 mmol/L (136-145); Total Bilirubin 0.5 mg/dL (0.15-1.2); Total Protein 6.6 g/dL (6.6-8.7)
[2019-07-31 06:31] LABS: Glucose Point of Care 262 mg/dL (70-110)
[2019-07-31] MEDS: diphenhydrAMINE 50 mg Capsule PO (07:12)
[2019-07-31] MEDS: sodium chloride 0.9% 1,000 ML 50 ML IV (07:13)
--- NOTE | 2019-07-31 07:34 | PC.NURSE ---
Report received from nurse Melo. Patient resting in bed. Significant other at bedside. Patient denies pain/sob. SR 72.
--- NOTE | 2019-07-31 08:53 | PC.NURSE ---
Patient out of room via bed with nurse CAITLIN Miguel from [employer]. Bedside report given to Lamont and patient's significant other is following to wait in [employer] [employer] waiting room.
--- NOTE | 2019-07-31 09:06 | XACV_ITS ---
Exam Room: [facility] Ht: 170 cm Wt: 105 kg BSA: 2.27 m2 Gender: Female : 1960 Any Known Allergies: Other Exam Priority: Routine Procedure(s): Procedure Description: Diagnostic procedure Procedure Description: PCI procedure Procedure Description: Left Heart Catheterization Procedure Description: Drug Eluting Coronary Stent Procedure Description: PTCA Procedure Description: Coronary Angiography Diagnostic Findings LM has 0% stenosis. CX has 0% stenosis. RCA has 0% stenosis. Proximal Left Anterior Descending Coronary Artery to pLAD: Severe 75% stenosis, ESTRELLA: 3 flow. Coronary angiography shows right dominance. PCI Status: Elective PCI Indication: New Onset Angina <= 2 months Interventional Findings Proximal Left Anterior Descending Coronary Artery to pLAD: 75% stenosis treated with MDT R TOM 4.0X18 JARROD and MDT NC EUPHORA RX [id number] BALLOON. 0% residual stenosis, ESTRELLA: 3 flow. Conclusions #1 L eft main is normal #2 LAD has patent previously placed mid stent proximal to the stent there is eccentric 70-80% stenosis, stress test was positive in the LAD territory#3 LCx has luminal irregularities#3 RCA has patent proximal and mid stents without significant in-stent restenosis. Proximal Left Anterior Descending Coronary Artery to pLAD was treated with Drug Eluting Stent and Balloon. Indication for the angiogram: Worsening of shortness of breath chest pain and abnormal stress test. Recommendations 1-Return to inpatient for close monitoring and routine cath care2-Risk factor modification for secondary prevention3-Statin and aspirin 81 mg life-long, if tolerated4-Continue Plavix 75mg p.o. daily for at least one year. We will assess at the end of one year again to continue if further or not5-Continue optimal medical management6-Follow up with Dr. Saunders in four weeks and your primary care in 10 days. Diagnostic RX Recommendation: PCI w/o planned CABG Pressures Phase:Rest AO : 191 mmHg / 17 mmHg ( 66 mmHg ) @ 3:27:00 AM 162 mmHg / 85 mmHg ( 115 mmHg ) @ 3:32:00 AM 159 mmHg / 85 mmHg ( 114 mmHg ) @ 3:34:00 AM 46 mmHg / 31 mmHg ( 36 mmHg ) @ 3:40:00 AM 148 mmHg / 94 mmHg ( 115 mmHg ) @ 3:46:00 AM Clinical Evaluation EBL: 5mL-10mL Procedural Details Pre-Procedure Time Out. Identified patient by full name and date of as verbalized by the patient/guarantor. Does the consent match the physician's order: Yes. Procedure Consent Obtained. Accurate & Complete Informed Consent: Yes. Inpatient/Outpatient History & Physical on Chart: Yes. If H&P is completed, is and addenduem needed: N/A; If yes, is the addendum complete: N/A. Visualize and Verify Site with Patient/Guarantor: N/A. Relevant Radiology Images available: Yes. Pre-op teaching completed and patient verbalized understanding. The risks, benefits, and alternatives of sedation and/or procedure were discussed by physician. The patient agrees to continue. Procedure started. Correct patient, site and procedure confirmed by cath team. PERRLA. Strong, equal hand agronomy supervisor bilaterally. Lungs clear x 5 lobes. IV Site on Arrival: 20 gauge in the left wrist. IV Fluids: 0.9% NaCl at KVO. 0 mL infused prior to laboratory mill[facility]. Pre Procedural Pulses: bilateral dorsalis pedis was 2+. Pre Procedural Pulses: bilateral posterior tibial was 2+. Pre Procedural Pulses: bilateral radial was 2+. Oxygen started at 2liters/min via nasal canula. right groin was prepped with chloroprep then draped in the usual sterile fashion. Physician notified. Baseline sample Acquired. HR: 58 BPM. Physician arrived. Equipment: 6F - Radial. Cardiac Cath Pack. ACIST Manifold Kit Model BT 2000. Heparinized Saline (2 units/mL), 1000 mL bag. Physician scrubbed in. Immediate Pre-Procedure Time Out. Correct Patient: Yes; Correct Procedure: Yes; Correct Site: Yes; Correct Patient Position: Yes; Correct Supplies: Yes; Dried Flammable Prep: Yes; Blood Products Available: No;. Lidocaine 1% infiltrated to the right groin. Arterial access obtained with micropuncture set. A 5 [place] JR4 catheter in over wire. Multiple views taken of right coronary artery. Catheter out. 6 zimbabwean XB 3.5 guide catheter was inserted over the wire. Inventory is Geeksphone XT .014 190cm Str. Guidewire. Guide catheter out. 6 z[place]an JL 4 guide catheter was inserted over the wire. Wireless Environment guidewire was advanced through the guide catheter to lesion in the prox LAD. Multiple views taken of left coronary artery. Inflation Number : 1 A MDT R TOM 4.0X18 JARROD -Lot Number# [id number] exp 02-11-2021_ was prepped and advanced across the Prox LAD. The stent was deployed at 9 LAURA for 0:15 seconds. Stent balloon out over wire. Patient's family updated. Inflation number : 2 A MDT NC EUPHORA RX [id number] BALLOON was prepped and advanced across the Prox LAD , then inflated to 12 LAURA for 0:13 seconds. Inflation number: 3 The MDT NC EUPHORA RX [id number] BALLOON was reinflated across the Prox LAD, to 14 LAURA for 0:13 seconds. Balloon and wire out. ACT drawn. Results 244 seconds. Therapeutic limits - pre-heparin administration 90-150 seconds and monitoring heparin during a vascular procedure >250 seconds. Results checked. A Suture was successful obtaining hemostatsis at the Right Femoral artery insertion site. Sheath(s) sutured into position with 2-0 silk and sterile 4x4's and Op-site applied over the site. No oozing or signs and symptoms of hematoma noted. Arterial sheath flushed and connected to tranducer and pressure bag with heparinized saline. Post Procedure: Pulses reassessed and unchanged. PERRLA. Strong, equal hand agronomy supervisor bilaterally. No VTE prophylaxis required. Total IV fluids: 49.1 mL. Fluoro: 10:08. Contrast type used: Omnipaque 300 mgI/mL, 500 mL bottle. [id number]. PCI Indication: New Onset Angina. Post-op diagnosis: obstructive prox LAD. Complications: none. Estimated blood loss: 5mL-10mL. Procedure completed. Patient transferred by bed to 1st floor. Medication's Wasted: Heparin = 1000 units. Medication's Wasted: Lidocaine 1% = 8 mL. Medication's Wasted: Other = versed 1 mg. Medication's Wasted: Other = fentynal 50 mcg. Vital chart was stopped. Site: Right Femoral artery Sheath Size: 6 Fr Hemostasis Method: Suture Hemostasis Success: Successful Procedure Medications Start: 9:20 AM Stop: 9:20 AM Medication: Versed Amount: 1 mg Route: I.V. Start: 9:20 AM Stop: 9:20 AM Medication: Fentanyl Amount: 50 mcg Route: I.V. I, the attending physician, have reviewed and verified all procedure medications. Yes, all medications given per verbal order History/Risk Factors Hypertension: Yes Dyslipidemia: No Diabetic Therapy: Insulin Peripheral Arterial Disease (PAD): No Myocardial Infarction (KS): No Obesity: Yes Renal Disease: No Tobacco Use: Former Prior Interventions PCI: No CABG: No Valve Surgery: No Report Signatures Finalized by:Aliyah Saunders MD on 08/14/2019 6:53:26 PM
--- NOTE | 2019-07-31 10:03 | PC.NURSE ---
Patient back from lab aid now. Bedside report received. Patient denies pain at present time.
--- NOTE | 2019-07-31 10:15 | PC.NURSE ---
Normal sensation noted.
--- NOTE | 2019-07-31 10:38 | PC.NURSE ---
Patient temporarily on bedrest due to sheath. Plan is to pull sheath at noon if PTT comes back good.
--- NOTE | 2019-07-31 10:40 | PC.NURSE ---
post op cath
--- NOTE | 2019-07-31 10:52 | PC.NURSE ---
pt blood sugar is 234
[2019-07-31] MEDS: FUROsemide 20 mg Tablet PO (11:51)
[2019-07-31] MEDS: atorvastatin 40 mg Tablet 80 MG PO (11:51)
[2019-07-31] MEDS: metoprolol tartrate 25 mg Tablet 12.5 MG PO ×2 (11:52→19:16)
--- NOTE | 2019-07-31 12:00 | PC.NURSE ---
Patient found to be sitting up in bed feeding self lunch. Immediately put patient bed back in proper position. Re educated patient on importance of remaining flat to prevent bleeding from sheath site. Reassessment of sheath site shows no s/s of bleeding. Locked patient's bed controls from being able to sit up and ensured patient's call light remained in reach. Patient verbalizes understanding.
[2019-07-31 12:07] LABS: Partial Thromboplastin Time 147.8 SECONDS (23.9-36.7)
--- NOTE | 2019-07-31 12:13 | PC.CHAP ---
Pastoral Care Encounter/Spiritual Assessment Type of Contact [] Declined it systems engineer visit [] Patient/Family/Request visit [] Outpatient visit [] Follow-up visit [] Physician referral [] Code/Alert [x] Routine visit [] Staff referral [] Actively dying [] Patient sleeping [x] Family support [] [] Out of room [] Palliative care [] [] Receiving care in room [] Pre-surgical visit [] Trauma [] Long length of stay [] ICU visit [] Other: Relational/Emotional Strength [] Patient feels connected with others/family/visitors/staff [] Distress [] Loneliness/isolation [] Abandonment Spirituality of Patient [x] Person of Berna [] Attends Alevism of their Berna [x Believes in Prayer [] Reads Bible or Caodaism materials [] There are Spiritual issues to be addressed Sap Hana Architect Interventions [x] Prayer [] Active listening [] Non-anxious presence [] Spiritual/emotional support [] Crisis/trauma care [] Spiritual counseling [] Bereavement support [] Provided bereavement packet [] Provided Bible/devotional materials [] Provided toy/stuffed animal, coloring book to patient or family member [] Provided Communion [] Anointing/[place] [] Salvation [x] Completed spiritual assessment [] Other: Impact on Illness or Injury [] Angry [] Fearful [] Anxious [] Often cries [] Exhaustion [] Unable to work [] Unable to attend restoration [] Unable to walk/stand [] Unable to read [] Unable to drive [] Unable to eat/drink [] Unable to sleep [] Unable to be with family [] Patient intubated [] Other: Summary Patients spouse present. Patient resting from surgery. Time spent with patient 10min
--- NOTE | 2019-07-31 13:07 | PC.NURSE ---
PTT still to high to pull sheath. Patient educated on reason for delay. Verbalizes understanding.
--- NOTE | 2019-07-31 14:12 | PM.PN ---
Subjective Subjective: Interval history: Patient has no complaints this morning, no chest pain, no palpitations, no shortness of breath, patient is anxious about having a cardiac catheterization, but otherwise she is doing well Vitals/I&O/Wt Last Vital Signs Temp 97.8 F 07/31/19 10:51 Pulse 70 07/31/19 10:51 Resp 18 07/31/19 10:51 BP 141/89 07/31/19 12:00 Pulse Ox 92 07/31/19 10:51 07/30/19 07/31/19 07/31/19 22:59 06:59 14:59 Intake Total 120 / 120 300 / 420 240 / 240 Balance 120 / 120 300 / 420 240 / 240 Weight last 48 hrs Weight 105.233 kg Physical Exam Const: COMMON NORMALS: no apparent distress and oriented x3 HENMT: COMMON NORMALS: normocephalic HEAD & SCALP: normocephalic Neck/C-Spine: COMMON NORMALS: no JVD Resp: COMMON NORMALS: normal respiratory effort, no retractions, no use of accessory muscles and clear to auscultation bilaterally AUSCULTATION: clear to auscultation bilaterally Cardio: COMMON NORMALS: no JVD, regular rate, regular rhythm, S1 normal heart sound and S2 normal heart sound RATE: regular rate RHYTHM: regular rhythm HEART SOUNDS: S1 normal and S2 normal GI: COMMON NORMALS: normal to inspection, nondistended, normoactive bowel sounds, soft to palpation, non-tender, no hepatosplenomegaly, no masses and no bruits PALPATION: Yes soft and Yes no hepatosplenomegaly Extremity: COMMON NORMALS: normal capillary refill, no clubbing, cyanosis or edema, no calf tenderness and no pedal edema Neuro: COMMON NORMALS: oriented x3 Psych: COMMON NORMALS: mental status grossly normal Data : 07/31/19 03:54 07/31/19 03:54 A&P Assessment and plan (1) CAD (coronary artery disease): Status: Acute Qualifiers: Coronary Disease-Associated Artery/Lesion type: [place] artery [place] vs. transplanted heart: [place] heart Associated angina: angina presence unspecified Qualified Code(s): I25.10 - Atherosclerotic heart disease of [place] coronary artery without angina pectoris Code(s): I25.10 - Atherosclerotic heart disease of [place] coronary artery without angina pectoris (2) Congestive heart failure: Status: Acute Qualifiers: Heart failure type: systolic Heart failure chronicity: unspecified Qualified Code(s): I50.20 - Unspecified systolic (congestive) heart failure Code(s): I50.9 - Heart failure, unspecified (3) Insulin dependent diabetes mellitus: Status: Acute Code(s): E11.9 - Type 2 diabetes mellitus without complications; Z79.4 - [facility] (current) use of insulin (4) Unstable angina pectoris: Status: Acute Code(s): I20.0 - Unstable angina Additional A&P Information Admit to CSU No acute ST-T changes delta troponin at 0.58 less likely suggestive of ACS Recently status post stenting to the RCA. Was also noted to have severe 90% stenosis in the distal LAD and 90% stenosis in the distal circumflex. Recent stress test also showed ischemic changes in the LAD territory. Continue aspirin, Plavix, atorvastatin, metoprolol at home dosing Hold losartan for now Keep n.p.o., will receive cardiac catheterization this morning Cardiology consult with Dr. Saunders- For history of CHF continue Lasix 20 mg daily. Currently patient is euvolemic For diabetes mellitus: Start aggressive insulin sliding scale Hypertension: Currently blood pressure well controlled at 125/73 DVT prophylaxis Lovenox Full code Attestations Medical Necessity Statement*: She requires continued hospitalization, for cardiac catheterization Coding Level of Care Code Acute Patient Accounting Representative for [facility] Diagnoses CAD (coronary artery disease) I25.10 Coronary Disease-Associated Artery/Lesion type: [place] artery [place] vs. transplanted heart: [place] heart Associated angina: angina presence unspecified Congestive heart failure I50.20 Heart failure type: systolic Heart failure chronicity: unspecified Insulin dependent diabetes mellitus E11.9; Z79.4 Unstable angina pectoris I20.0
[2019-07-31] MEDS: morphine 4 mg/mL SDV 1 mL IVP ×2 (14:17→23:42)
[2019-07-31 15:16] LABS: Partial Thromboplastin Time 34.5 SECONDS (23.9-36.7)
--- NOTE | 2019-07-31 15:19 | PC.NURSE ---
Patient complained of new onset pain to right groin. Assessment shows no evidence of bleeding. Morphine administered in response to pain. Dr. Saunders notified. Instructions to give plavix now. Pain reassessment is 0/10 at present time.
--- NOTE | 2019-07-31 16:49 | PC.NURSE ---
Sheath removed intact. Patient tolerates procedure well. Hematoma noted. Vitals remain stable.
[2019-07-31 17:05] LABS: Glucose Point of Care 231 mg/dL (70-110)
--- NOTE | 2019-07-31 17:07 | PC.NURSE ---
Call placed to Dr. Saunders to notify him of patient's development of hematoma. Site marked. Instructions to continue to monitor.
--- NOTE | 2019-07-31 17:50 | PC.NURSE ---
Report given to nurse
[2019-07-31] MEDS: clopidogrel 75 mg Tablet PO (18:18)
[2019-07-31] MEDS: sodium chloride 0.9% 1,000 ML 100 ML IV (19:14)
--- NOTE | 2019-07-31 19:27 | PC.NURSE ---
PT HAS A HEMATOMA AROUND INCISION SITE. IT IS RAISED AND HARD. HEMATOMA IS MARKED AND WILL MONITOR. PT HAS TR BAND ON RIGHT RADIAL. PT HAS 0 C/O PAIN AT THIS TIME. WILL CONTINUE TO MONITOR.
[2019-07-31 21:38] LABS: Glucose Point of Care 360 mg/dL (70-110)
[2019-08-01] VITALS: BP 123/77; PULSE 72; RESP 24; TEMP 36.7; O2SAT 94
--- NOTE | 2019-08-01 02:55 | PC.NURSE ---
TR BAND WAS REMOVED BY RN. THERE IS NO BLEEDING AT THE SITE WILL CONTINUE TO MONITOR.
--- NOTE | 2019-08-01 02:56 | PC.NURSE ---
PT AMBULATED 300 FT. PT TOLERATED WELL. HEMATOMA IS DECREASING IN SIZE AND ISN'T FIRM IT WAS AT THE BEGINNING OF THE SHIFT. THERE IS SLIGHT DISCOLORATION FROM SITE TO HALF WAY DOWN THE THIGH. PT HAS 0 C/O PAIN AT THE FEMORAL SITE AND DOESN'T C/O PAIN I PRESS ON THE HEMATOMA. 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 WILL CONTINUE TO MONITOR.
[2019-08-01 04:00] VITALS: BP 106/52; PULSE 71; RESP 11; TEMP 36.9; O2SAT 95
--- NOTE | 2019-08-01 05:22 | PC.NURSE ---
PT HAS A PRESSURE DRESSING TO RIGHT RADIAL. PT HAS 0 C/O PAIN AT THIS TIME. WILL CONTINUE TO MONITOR. PT HAS PRESSURE DRESSING TO RIGHT GROIN. HEMATOMA APPEARS TO BE SOFTER AND LESS RAISED. PT HAS 0 C/O PAIN AT THIS TIME. WILL CONTINUE TO MONITOR.
[2019-08-01 05:44] LABS: Basophils # 0.1 10^3/uL (0.0-0.1); Basophils % 0.7 %; Eosinophils # 0.3 10^3/uL (0.0-0.8); Eosinophils % 3.1 %; Hematocrit 35.9 % (37.0-47.0); Hemoglobin 11.6 g/dL (11.5-15.3); Lymphocytes # 1.4 10^3/uL (0.8-4.8); Lymphocytes % 16.8 %; Mean Corpuscular HGB Conc 32.3 g/dL (30.0-36.0); Mean Corpuscular Hemoglobin 29.7 pg (28.0-34.0); Mean Corpuscular Volume 91.8 fL (81-99); Mean Platelet Volume 11.1 fL (7.4-10.4); Monocytes # 0.5 10^3/uL (0.2-0.9); Monocytes % 6.4 %; Neutrophils # 5.9 10^3/uL (1.8-7.7); Neutrophils % 72.6 %; Nucleated Red Blood Cells % 0 %; Platelet Count 183 10^3/cmm (130-400); Red Blood Count 3.91 10^6/uL (4.1-5.3); White Blood Count 8.1 10^3/uL (4.0-10.0)
[2019-08-01 06:10] LABS: Anion Gap 18.3 (5-19); Blood Urea Nitrogen 20 mg/dL (6-20); Calcium 9.3 mg/dL (8.5-10.5); Carbon Dioxide 23 mmol/L (22-29); Chloride 98 mmol/L (98-107); Glomerular Filtration Rate 56.7 mL/min (90-130); Glucose 268 mg/dL (65-115); Osmolality Calculated 286 mOsm/kg (285-295); Potassium 4.3 mmol/L (3.5-5.1); Sodium 135 mmol/L (136-145)
[2019-08-01] MEDS: sodium chloride 0.9% 1,000 ML 100 ML IV (06:21)
[2019-08-01 06:44] LABS: Glucose Point of Care 270 mg/dL (70-110)
--- NOTE | 2019-08-01 07:00 | PC.NURSE ---
Report received from nurse CAITLIN Johnson. Patient resting in bed. Denies pain/sob. Right leg hematoma noted to be decreased as compared to yesterday. Patient denies pain in this area.
[2019-08-01 07:04] VITALS: BP 126/74; PULSE 80; RESP 10; TEMP 36.7; O2SAT 94
--- NOTE | 2019-08-01 08:01 | PC.NURSE ---
Patient sitting up in bed feeding self breakfast without difficulty.
[2019-08-01] MEDS: clopidogrel 75 mg Tablet PO (08:16)
[2019-08-01] MEDS: atorvastatin 40 mg Tablet 80 MG PO (08:16)
[2019-08-01] MEDS: metoprolol tartrate 25 mg Tablet 12.5 MG PO (08:16)
[2019-08-01] MEDS: aspirin 81 mg EC Tablet PO (08:16)
[2019-08-01] MEDS: FUROsemide 20 mg Tablet PO (08:19)
--- NOTE | 2019-08-01 09:53 | P.DS_ITS ---
Discharge Providers Date of Admission: 07/31/19 17:39 Date of Discharge: August 01, 2019 Attending Provider at Admission: Mari Bowers MD Attending Provider at Discharge: Geovany Worthy MD Consults: Cardiology: Dr. Saunders Primary Care Provider: Chalino Keene MD Diagnoses at Discharge Discharge Diagnosis (1) CAD (coronary artery disease): Status: Acute Qualifiers: Associated angina: angina presence unspecified Coronary Disease- Associated Artery/Lesion type: [place] artery [place] vs. transplanted heart: [place] heart Qualified Code(s): I25.10 - Atherosclerotic heart disease of [place] coronary artery without angina pectoris (2) Congestive heart failure: Status: Acute Qualifiers: Heart failure chronicity: unspecified Heart failure type: systolic Qualified Code(s): I50.20 - Unspecified systolic (congestive) heart failure (3) Insulin dependent diabetes mellitus: Status: Acute (4) Unstable angina pectoris: Status: Acute Reason for Visit Reason for Visit: Reason For Visit: CHEST PAIN Hospital Course Discharge Summary: Rachel Malhotra is a 59 year old female past medical history of insulin-dependent diabetes who was admitted between 06/16-06/21 after p/w what was thought to be A. fib with controlled rate leading to congestive heart failure so she was treated with low-dose metoprolol, IV diuresis and was started on Eliquis for anticoagulation. During her stay patient complained of central chest pressure for which he underwent stress test suggestive of ischemia in LAD territory. After further IV diuresis patient underwent cardiac catheterization and she underwent angioplasty and PCI of proximal RCA with 2 overlapping drug- eluting stent for 99% long stenosis which was complicated with right groin hematoma and blood loss anemia requiring transfusion. Echocardiogram done during the stay showed mildly decreased LV systolic function but could not be quantified for RWMA. On further evaluation of her telemetry it was thought that patient most likely has premature atrial complex tachycardia rather than atrial fibrillation so her anticoagulation was stopped and she was continued on dual antiplatelet therapy for PCI. she followed up with cardiology on July 02 as an outpatient, did not get the event monitor. At the office visit she was noted to have sinus rhythm with PACs and monitor was deferred. She presented with Chest pressure like symptoms on 07/30/19. The pain is intermittent, 6-7 out of 10 in intensity, no apparent exacerbating or relieving factors. This pain is currently radiating into his left arm and has tingling over the lateral 3 digits. No radiation to jaw or neck. Denies any complaints of dyspnea or tachypnea or paroxysmal nocturnal dyspnea. She is taking all of her medications as prescribed without any interruptions. EKG performed in the ER today shows sinus rhythm with PACs and known left bundle branch block. There are no acute changes compared to previous admission. Baseline troponin is 14 over troponin of 0.75 with a delta of 1.75. Renal and liver function are stable. Currently blood pressure is 125/73, heart rate 71, O2 saturation 97% on room air. Given her cath results and residual on previous admission she was taken for cardiac catheterization and underwent PCI to proximal LAD. She tolerated procedure well and her stay was unremarkable. Her lopressor and losartan were uptitrated. She is being discharged in hemodynamically stable condition Physical Exam Narrative: EXAM NARRATIVE: General: No acute distress, AO x3 HEENT: PERRLA, pupils bilaterally equal and reactive Chest: Normal vesicular breath sounds, no added sounds, equal good air entry bilaterally CVS: S1-S2 regular, no murmurs, no tachycardia, no gallops, no rubs Abdomen: Soft, nontender, no organomegaly, bowel sounds present Neuro: No focal deficits, no facial deformity, AO x3, power 5/5 in all limbs Discharge Data Data Completed and Pending: Completed Studies During Hospitalization Category Date Time Status XR chest 1V haroon ble [id number] Stat Exams 07/30/19 03:10 Completed Pending at discharge Category Date Time Status 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 Routin e Exams 07/31/19 09:06 Taken Labs from last 24 hours 08/01/19 08/01/19 08/01/19 06:15 05:30 05:30 WBC 8.1 RBC 3.91 L Hgb 11.6 Hct 35.9 L MCV 91.8 MCH 29.7 MCHC 32.3 RDW 13.0 Plt Count 183 MPV 11.1 H Neut % (Auto) 72.6 Lymph % (Auto) 16.8 [place] % (Auto) 6.4 Eos % (Auto) 3.1 Baso % (Auto) 0.7 Neut # (Auto) 5.9 Lymph # (Auto) 1.4 [place] # (Auto) 0.5 Eos # (Auto) 0.3 Baso # (Auto) 0.1 Nucleated RBC % (a uto) 0 Nucleated RBCs # 0.0 APTT Sodium 135 L Potassium 4.3 Chloride 98 Carbon Dioxide 23 Anion Gap 18.3 BUN 20 Creatinine 1.0 H GFR Calculation 56.7 L Glucose 268 H POC Glucose 270 Calculated Osmolal ity 286 Calcium 9.3 07/31/19 07/31/19 07/31/19 20:27 15:53 14:10 WBC RBC Hgb Hct MCV MCH MCHC RDW Plt Count MPV Neut % (Auto) Lymph % (Auto) [place] % (Auto) Eos % (Auto) Baso % (Auto) Neut # (Auto) Lymph # (Auto) [place] # (Auto) Eos # (Auto) Baso # (Auto) Nucleated RBC % (a uto) Nucleated RBCs # APTT 34.5 D Sodium Potassium Chloride Carbon Dioxide Anion Gap BUN Creatinine GFR Calculation Glucose POC Glucose 360 231 Calculated Osmolal ity Calcium 07/31/19 11:38 WBC RBC Hgb Hct MCV MCH MCHC RDW Plt Count MPV Neut % (Auto) Lymph % (Auto) [place] % (Auto) Eos % (Auto) Baso % (Auto) Neut # (Auto) Lymph # (Auto) [place] # (Auto) Eos # (Auto) Baso # (Auto) Nucleated RBC % (a uto) Nucleated RBCs # APTT 147.8 H Sodium Potassium Chloride Carbon Dioxide Anion Gap BUN Creatinine GFR Calculation Glucose POC Glucose Calculated Osmolal ity Calcium Vitals: Last Vital Signs Temp 98.1 F 08/01/19 07:04 Pulse 80 08/01/19 07:04 Resp 10 L 08/01/19 07:04 BP 126/74 08/01/19 07:04 Pulse Ox 94 08/01/19 07:04 Discharge Plan Discharge Patient Disposition: Home, Self-Care Prescriptions: Continued Lasix 20 mg tablet 20 mg PO DAILY Qty: 30 RF: 5 ferrous sulfate 325 mg (65 mg iron) tablet,delayed release (DR/EC) 325 mg PO BID Qty: 30 RF: 0 Novolin 70/30 U-100 Insulin 100 unit/mL (70-30) Suspension 40 unit SUBCUT BID RF: 0 clopidogrel 75 mg Tablet 75 mg PO DAILY 90 Days Qty: 90 RF: 0 aspirin 81 mg Tablet,Delayed Release (Dr/Ec) 81 mg PO DAILY 90 Days Qty: 90 RF: 0 nitroglycerin [Nitrostat] 0.4 mg Tablet, Sublingual 0.4 mg sublingual Q5M PRN (Reason: Chest Pain) Qty: 10 RF: 0 atorvastatin 40 mg tablet 80 mg PO DAILY RF: 0 Changed losartan 50 mg Tablet 50 mg PO DAILY 90 Days Qty: 90 RF: 0 metoprolol tartrate 25 mg Tablet 25 mg PO BID 90 Days Qty: 180 RF: 0 Discharge Orders: Discharge Order (Routine); Ordered 08/01/19 Ordered By: Geovany Worthy Referrals: Chalino Keene MD [Primary Care Provider] - 2 weeks (You have a hospital follow up at [facility] with Rossi Lakhani NP on August 14 at 12:30pm. Any questions or appointment changes, please call them at [phone]) Aliyah Saunders MD [Physician] - 7-10 days (You have at procedure site check with RON Lopes at [facility] on August 07 at 11:00am. Any questions or appointment changes, please give them a call at [phone]) Discharge Diet: Cardiac and Diabetic Discharge Activity: Resume usual activity Patient Instructions: Diabetes and Diet, Angina (DC), Heart Failure (DC), Coronary Artery Disease (DC), Left Heart Catheterization (DC), Right Heart Catheterization (DC), Coronary Angioplasty (DC) Discharge Date/Time: 08/01/19 11:43 Discharge Attestations Time Spent in Discharge Care*: greater than 30 min Specific Discharge Activities: Specific discharge activities: educating pa tient and evaluating patient/reviewing data Status at Discharge: Cognitive status at discharge: cognitively intact , Behavioral status at discharge: cooperative , Functional status at discharge: independent ambulation Overall status at discharge: patient is back to b aseline Quality Metrics Clinical Quality Measures During this hospital stay, did patient experience: None Coding Level of Care Code Acute Electrician Research for Juveg Fwd Diagnoses CAD (coronary artery disease) I25.10 Associated angina: angina presence unspecified Coronary Disease-Associated Artery/Lesion type: [place] artery [place] vs. transplanted heart: [place] heart Congestive heart failure I50.20 Heart failure chronicity: unspecified Heart failure type: systolic Insulin dependent diabetes mellitus E11.9; Z79.4 Unstable angina pectoris I20.0
[2019-08-01 11:03] VITALS: BP 111/58; PULSE 74; RESP 20; TEMP 36.6; O2SAT 99
[2019-08-01] MEDS: cetirizine 10 mg Tablet PO (11:04)
[2019-08-01 11:24] VITALS: BP 111/58; PULSE 75; RESP 16; TEMP 36.6; O2SAT 96
--- NOTE | 2019-08-01 11:39 | PC.NURSE ---
Patient states she will take her insulin when she gets home and does not want her lunch dose of insulin. Discharge teaching performed with extensive education on chest pain, med changes, fall risk, and follow ups. Patient requests to ambulate out of facility instead of riding in wheel chair.
[2019-08-01 11:41] LABS: Glucose Point of Care 338 mg/dL (70-110)
== END 2019-08-01 11:43 | disposition home or self-care (01) | DRG 247 ==
LOC: ER 08:12 → CSU 15:07
PROVIDERS: Internal Medicine Cardiovascular Disease; Admitting Provider Student in an Organized Health Care Education/Training Program; Emergency Provider Emergency Medicine; PCP Nurse Practitioner Family; Visit Provider Student in an Organized Health Care Education/Training Program
DX: I25.110 Atherosclerotic heart disease of native coronary artery with unstable angina pectoris (principal); I50.22 Chronic systolic (congestive) heart failure; E11.9 Type 2 diabetes mellitus without complications; Z79.4 Long term (current) use of insulin; Z88.8 Allergy status to other drugs, medicaments and biological substances; Z79.899 Other long term (current) drug therapy; E66.9 Obesity, unspecified; I11.0 Hypertensive heart disease with heart failure; Z68.36 Body mass index [BMI] 36.0-36.9, adult; Z79.02 Long term (current) use of antithrombotics/antiplatelets; Z79.82 Long term (current) use of aspirin
CPT/HCPCS: 12345; 36415; 36416; 71045; 80048; 80053; 82962; 83690; 83735; 83880; 84484; 85025; 85347; 85730; 93005; 93454; 96372; 96375; 99283; C1725; C1769; C1874; C1887; C1894; C9600; G0378; J1644; J1650; J1815; J2001; J2250; J2270; J2405; J3010; J7030; Q0163; Q9967

== ENCOUNTER → 2019-08-07 11:55 | Outpatient (BNVA) | payer BC, SELFPAY | PROVIDERS: PCP Nurse Practitioner Family; Visit Provider Nurse Practitioner Family | DX: I50.9 Heart failure, unspecified (principal); I25.10 Atherosclerotic heart disease of native coronary artery without angina pectoris | CPT/HCPCS: 80048 ==

== ENCOUNTER → 2019-11-26 10:59 | Outpatient (BNVA) | payer BC, SELFPAY | PROVIDERS: PCP Nurse Practitioner Family; Visit Provider Nurse Practitioner Family | DX: I11.0 Hypertensive heart disease with heart failure (principal); I50.9 Heart failure, unspecified; I50.20 Unspecified systolic (congestive) heart failure | CPT/HCPCS: 80048 ==

== ENCOUNTER 2020-02-05 13:46 | Emergency (ER) | payer BC, SELFPAY ==
[2020-02-05 14:10] VITALS: BP 152/76; PULSE 59; RESP 14; TEMP 36.2; O2SAT 99; BMI 36.0
--- NOTE | 2020-02-05 14:17 | CT_ITS ---
WS: [id number] CT HEAD NONCONTRAST HISTORY: trauma/fall/laceration TECHNIQUE: Contiguous axial imaging performed through the brain in 2.5 mm imaging. Bone and soft tiss ue windows. Sagittal and coronal reformats reviewed. All CT scans at [facility] use at le ast one of these dose optimization techniques: automated exposure control; mA and/or kV adjustment pe r patient size (includes targeted exams where dose is matched to clinical indication); or iterative r econstruction. DLP: 870.72 mGy.cm COMPARISON: None available. No acute intracranial hemorrhage, midline shift or mass effect. Very mild atrophy of the frontal lobes. Ventricles: Normal size with no hydrocephalus. No inferior displacement of cerebellar tonsils. Paranasal sinuses: Mixed density soft tissue in the RIGHT maxillary, ethmoid and sphenoid sinuses. Th is can be seen with inspissated mucous secretions or blood or fungal infection. Mild expansion of the RIGHT maxillary sinus cavity and possible destruction of the medial wall. Mastoid air cells: Well pneumatized. Calvarium and scalp: No skull fracture. There is a moderate-sized scalp hematoma centered over the po sterior RIGHT parietal region measuring 5.0 x 1.0 cm. Mild atherosclerosis intracranial carotid arteries. CT/CT head wo con* [id number] IMPRESSION: 1. No acute intracranial hemorrhage or edema. 2. Moderate-sized RIGHT posterior parietal scalp hematoma. 3. Mixed density soft tissue in the RIGHT maxillary, ethmoid and sphenoid sinu ses is likely due to inspissated fecal material, blood or fungal infection.
--- NOTE | 2020-02-05 14:26 | ED_ITS ---
HPI - Fall General: Chief Complaint: Fall Stated Complaint: fall Time Seen by Provider: 02/05/20 14:17 Source: patient Mode of arrival: ambulatory Limitations: no limitations History of Present Illness: HPI Narrative: Patient is a 59-year-old female who presents to ED today with complaints of a head laceration. Patient tells me she was at the [employer] and was walking along the bank when she accidentally slipped on algae causing her to fall backwards and strike her head. There was no LOC. Patient is not complaining of neck or back pain. She has no other injuries or complaints at this time. She does not complain of a headache, blurry vision, nausea/vomiting. She is alert and oriented and answering all questions appropriately. She is on Plavix. Tetanus is up-to-date. Associated symptoms-after fall: Denies difficulty walking, headache(s), neck pain or vertigo Review of Systems Eyes: Denies: change in vision, blurry vision, photophobia, floaters or seeing flashes GI: Denies: nausea or vomiting Musc: Denies: neck pain, back pain, extremity pain or joint pain Skin/Breast: Reports: other (scalp laceration ) Neuro: Denies: headache(s), numbness in extremities, weakness in extremities, sensory changes, lack of coordination, difficulty walking, frequent falls, dizziness or vertigo [facility] ED PFSH: Medical History (Updated 02/05/20 @ 15:24 by RADHA Macias) Diabetes Hypertension Insulin dependent diabetes mellitus Obesity Surgical History Hx of tubal ligation No pertinent past surgical history Family History Mother Diabetes Father Diabetes Lung disease Other Hypertension Denies family history of CAD (coronary artery disease) Clotting disorder Dementia Hyperlipidemia Psychiatric illness Chronic kidney disease (CKD) Suicide Anesthesia complication Bleeding disorder Family history of premature coronary artery disease Cancer Stroke Social History Smoking and tobacco status: former smoker Alcohol intake: never Lives independently: No Household members: spouse Physical Exam Const: COMMON NORMALS: no acute distress, patient oriented x3, no limitations and alert GENERAL APPEARANCE: cooperative ORIENTATION/CONSCIOUSNESS: Yes awake, Yes oriented to person, Yes oriented to place and Yes oriented to time HENMT: COMMON NORMALS: normocephalic HEAD & SCALP: normocephalic and other (3cm posterior scalp lac; bleeding controlled ) FACE & SINUS: normal facial exam and sinuses nontender Neck/C-Spine: COMMON NORMALS: full ROM CERVICAL SPINE: Yes cervical ROM normal, No Cervical spine tenderness and No Paracervical muscle tenderness Chest: COMMONS NORMALS: normal inspection of the chest and normal palpation of entire chest wall Resp: COMMON NORMALS: normal respiratory effort and clear to auscultation bilaterally AUSCULTATION: clear to auscultation bilaterally Cardio: COMMON NORMALS: regular rate and regular rhythm RATE: regular rate RHYTHM: regular rhythm Back/Pelvis: COMMON NORMALS: thoracic and lumbar spine normal to inspection, no thoracic nor lumbar tenderness and thoraco-lumbar ROM normal Extremity: COMMON NORMALS: normal to inspection and full ROM GENERAL: Yes normal exam except as noted Neuro: WOJCIECH COMA SCALE: document GCS findings Virgie coma scale eye opening: Spontaneous Virgie coma scale verbal response: Orientated Virgie coma scale motor response: Obey commands Virgie coma scale total score: 15 COMMON NORMALS: patient oriented x3, CN's II-XII intact bilaterally, moves all extremities, no focal motor deficits, no sensory deficits noted and gait normal SENSORIUM/ORIENTATION: Yes alert, Yes oriented to person, Yes oriented to place and Yes oriented to time Skin: OTHER: see head/scalp assessment Procedures Laceration Laceration 1: Site: scalp Size (cm): 3.0 Description: linear Depth: simple, single layer Local Anesthetic: lidocaine 1% and with epi Amount of anesthesia used (mL): 2.0 Pre-repair: wound explored and irrigated extensively Skin layer closed with: other (ousmane) Number of sutures: 9 Course Vital Signs: Vital signs: Vital Signs Temperature 97.2 F L 02/05/20 14:10 Pulse Rate 59 L 02/05/20 14:10 Respiratory Rate 14 02/05/20 14:10 Blood Pressure 152/76 02/05/20 14:10 Pulse Oximetry 99 02/05/20 14:10 MDM - Fall Imaging Data^: CT Head: Radiologist's impression: [address] [address] [address] Scan Report Signed Patient: Rachel Malhotra Unit #: [id number] : 1960 Age/Sex: 59 / F ADM Date: 01/11 11/29 Loc: ER Room/Bed: Attending Dr: Ordering Provider/Ordering MD: Yumiko Manning Date of Service: 02/05/20 Procedure(s): CT head wo con* [id number] Accession Number(s): [id number] Report Number: [id number] WS: [id number] CT HEAD NONCONTRAST HISTORY: trauma/fall/laceration TECHNIQUE: Contiguous axial imaging performed through the brain in 2.5 mm imaging. Bone and soft tissue windows. Sagittal and coronal reformats reviewed. All CT scans at [facility] use at least one of these dose optimization techniques: automated exposure control; mA and/or kV adjustment per patient size (includes targeted exams where dose is matched to clinical indication); or iterative reconstruction. DLP: 870.72 mGy.cm COMPARISON: None available. No acute intracranial hemorrhage, midline shift or mass effect. Very mild atrophy of the frontal lobes. Ventricles: Normal size with no hydrocephalus. No inferior displacement of cerebellar tonsils. Paranasal sinuses: Mixed density soft tissue in the RIGHT maxillary, ethmoid and sphenoid sinuses. This can be seen with inspissated mucous secretions or blood or fungal infection. Mild expansion of the RIGHT maxillary sinus cavity and possible destruction of the medial wall. Mastoid air cells: Well pneumatized. Calvarium and scalp: No skull fracture. There is a moderate-sized scalp hematoma centered over the posterior RIGHT parietal region measuring 5.0 x 1.0 cm. Mild atherosclerosis intracranial carotid arteries. CT/CT head wo con* [id number] IMPRESSION: 1. No acute intracranial hemorrhage or edema. 2. Moderate-sized RIGHT posterior parietal scalp hematoma. 3. Mixed density soft tissue in the RIGHT maxillary, ethmoid and sphenoid sinuses is likely due to inspissated fecal material, blood or fungal infection. Dictated By: Carly Villasenor DO Signed By: Carly Villasenor DO Signed Date/Time: 02/05/20 1501 DD/ 1455 Discharge Plan Discharge Patient Disposition: Home Clinical Impression: Laceration of scalp Qualifiers: Encounter type: initial encounter Qualified Code(s): S01.01XA - Laceration without foreign body of scalp, initial encounter Condition: Stable Prescriptions: New doxycycline monohydrate 100 mg capsule 100 mg PO Q12H 10 Days Qty: 20 RF: 0 No Action glyburide 5 mg tablet 5 mg PO BID RF: 0 Lasix 20 mg tablet 20 mg PO DIRECTED Qty: 90 RF: 4 gabapentin 100 mg capsule 100 mg PO .COMPLEX RF: 0 ferrous sulfate 325 mg (65 mg iron) tablet,delayed release (DR/EC) 325 mg PO BID Qty: 30 RF: 6 clopidogrel 75 mg tablet 75 mg PO DAILY 90 Days Qty: 90 RF: 3 isosorbide mononitrate 30 mg tablet extended release 24 hr 15 mg PO BID Qty: 90 RF: 3 losartan 50 mg tablet 75 mg PO DAILY Qty: 90 RF: 2 metoprolol tartrate 25 mg tablet 25 mg PO BID Qty: 180 RF: 3 potassium chloride 20 mEq tablet extended release 20 meq PO BID Qty: 180 RF: 3 atorvastatin 80 mg tablet 80 mg PO DAILY Qty: 90 RF: 3 Novolin 70/30 U-100 Insulin 100 unit/mL (70-30) Suspension 40 unit SUBCUT BID RF: 0 nitroglycerin [Nitrostat] 0.4 mg Tablet, Sublingual 0.4 mg sublingual Q5M PRN (Reason: Chest Pain) Qty: 10 RF: 0 Discharge Orders: Discharge Order (Routine); Ordered 02/05/20 Ordered By: Yumiko Manning Referrals: Jena Lakhani FNP [Primary Care Provider] - Patient Instructions: Scalp Laceration, Staple Care (ED) Activity Restrictions/Additional Instructions: Keep wound clean with warm soapy water several times daily. Begin your antibiotics immediately. Smoot need to be removed in 7 days. Monitor for signs of infection such as worsening pain, swelling, drainage. Coding Level of Care Code ED Patient Svcs Mgr for Cierra Fwrufino Exam Comprehensive
[2020-02-05 15:35] VITALS: RESP 18
== END 2020-02-05 15:35 | disposition home or self-care (01) ==
PROVIDERS: Emergency Provider Physician Assistant; PCP Nurse Practitioner Family
DX: S01.01XA Laceration without foreign body of scalp, initial encounter (principal); E11.9 Type 2 diabetes mellitus without complications; Z79.4 Long term (current) use of insulin; I10 Essential (primary) hypertension; W01.0XXA Fall on same level from slipping, tripping and stumbling without subsequent striking against object, initial encounter; Z87.891 Personal history of nicotine dependence
CPT/HCPCS: 12002; 12345; 70450; 99281; 99283

== ENCOUNTER → 2020-11-25 11:34 | Outpatient (BNVA) | payer OTHER, SELFPAY | PROVIDERS: PCP Nurse Practitioner Family; Visit Provider Nurse Practitioner Family | DX: I25.10 Atherosclerotic heart disease of native coronary artery without angina pectoris (principal); I50.20 Unspecified systolic (congestive) heart failure; R06.83 Snoring; G47.10 Hypersomnia, unspecified; G47.30 Sleep apnea, unspecified | CPT/HCPCS: 80048; 83880 ==

== ENCOUNTER 2021-01-29 09:34 | Outpatient (CLI) | payer OTHER, SELFPAY ==
--- NOTE | 2021-01-29 09:30 | USCV_ITS ---
Rachel Malhotra Age: 60 Gender: F : 1960 Exam Date: 01/29/2021 09:56 Ordering Phys: Estrellita Jones Technologist: Wilma Wagner Exam Location: [facility] Indication: edema BP: 140 / 88 HR: 55 Rhythm: Sinus Technical Quality: Adequate MEASUREMENTS (Male / Female) Normal Values 2D ECHO LV Diastolic Diameter PLAX 4.4 cm 4.2 - 5.9 / 3.9 - 5.3 cm LV Systolic Diameter PLAX 3.2 cm IVS Diastolic Thickness 1.5 cm 0.6 - 1.0 / 0.6 - 0.9 cm IVS Systolic Thickness 2.0 cm LVPW Diastolic Thickness 1.0 cm 0.6 - 1.0 / 0.6 - 0.9 cm LVPW Systolic Thickness 1.5 cm LVOT Diameter 2.0 cm LV Ejection Fraction 2D Teich 52.1 % LV Ejection Fraction MOD 2C 75.7 % LV Ejection Fraction 2C AL 76.3 % LA Diameter 3.3 cm LA Width 4.0 cm LA Height 5.1 cm RA Width 3.6 cm RA Height 4.4 cm Aorta at Sinotubular Diameter 3.0 cm DOPPLER AV Peak Velocity 129.0 cm/s LVOT Peak Velocity 72.0 cm/s AV Area Cont Eq vti 2.2 cm squared AV Area Cont Eq pk 1.8 cm squared MV Peak Velocity 126.0 cm/s MV Area PHT 4.8 cm squared Mitral E to A Ratio 1.0 MV E' Velocity 63.0 cm/s Mitral E to MV E' Ratio 28.2 Mitral E to LV E' Lateral Ratio 23.8 Mitral E to LV E' Septal Ratio 35.7 TR Peak Velocity 207.0 cm/s TR Peak Gradient 17.1 mmHg Right Atrial Pressure 3.0 mmHg Pulmonary Artery Systolic Pressu 20.1 mmHg PV Peak Velocity 77.0 cm/s RV Acceleration Time 0.1 s RV Ejection Time 0.3 s RV AcT/ET 0.3 FINDINGS Left Ventricle Normal left ventricular cavity size, upper normal left ventricle wall thickness and low normal left ventricle systolic function. Left ventricular ejection fraction is estimated at 50-55%. Although no diagnostic regional wall motion abnormality could be advised, this possibility cannot be completely excluded based on the study. Grade II diastolic dysfunction, moderately elevated filling pressures. Right Ventricle Normal right ventricular size and systolic function. Normal right ventricular systolic pressure, RVSP=27 mm Hg. Right Atrium Normal right atrial size. Left Atrium Mildly increased left atrial size. Mitral Valve Mild mitral annular calcification. Mildly thickened mitral valve. No mitral valve stenosis. Mild mitral valve regurgitation. Aortic Valve Structurally normal trileaflet aortic valve. No aortic valve stenosis. Trace aortic valve regurgitation. Tricuspid Valve Structurally normal tricuspid valve. No tricuspid valve stenosis. Trace tricuspid valve regurgitation. Pulmonic Valve Structurally normal pulmonic valve. No pulmonary valve stenosis. Trace pulmonary valve regurgitation. Pericardium No pericardial effusion. Aorta Normal size aortic root and proximal ascending aorta. CONCLUSIONS 1. Normal left ventricular cavity size, upper normal left ventricle wall thickness and low normal left ventricle systolic function. Left ventricular ejection fraction is estimated at 50-55%. Although no diagnostic regional wall motion abnormality could be advised, this possibility cannot be completely excluded based on the study. Grade II diastolic dysfunction, moderately elevated filling pressures. 2. Normal right ventricular size and systolic function. 3. Mildly increased left atrial size. 4. Mild mitral valve regurgitation. 5. Pulmonary artery pressure estimated 27 mmHg. 6. Direct comparison to previous echocardiogram dated 06/16/2019 is not possible given technical differences in study. Shirin Metzger MD (Electronically Signed) Final Date: 01 February 2021 18:16 S
== END 2021-01-29 09:35 | disposition home or self-care (01) ==
PROVIDERS: PCP Nurse Practitioner Family; Visit Provider Nurse Practitioner Family
DX: I25.10 Atherosclerotic heart disease of native coronary artery without angina pectoris (principal); R60.9 Edema, unspecified; I34.0 Nonrheumatic mitral (valve) insufficiency
CPT/HCPCS: 93306

== ENCOUNTER 2021-04-20 10:49 | Outpatient (CLI) | payer OTHER, SELFPAY ==
--- NOTE | 2021-04-20 11:16 | ECG_ITS ---
[facility] Test Date: 2021-04-20 Pat Name: Rachel Malhotra Department: Room: Gender: Female Bar Back: : 1960 Requested By: Asa Chan Order Number: [id number] Steve MD: Shirin Metzger M.D. Measurements Intervals [place] Rate: 67 P: 40 MO: 201 QRS: -17 QRSD: 137 T: 118 QT: 447 QTc: 475 Interpretive Statements SINUS RHYTHM LEFT BUNDLE BRANCH BLOCK [120+ ms QRS DURATION, 80+ ms Q/S IN V1/V2, 85+ ms R IN I/aVL/V5/V6] Compared to ECG 07/30/2019 09:53:58 No significant changes Electronically Signed On 04-21-2021 7:39:51 POLICE OFFICER by Shirin Metzger M.D. [id number]
== END 2021-04-20 10:50 | disposition home or self-care (01) ==
LOC: RT 10:53
PROVIDERS: PCP Nurse Practitioner Family; Visit Provider Specialist
DX: J32.8 Other chronic sinusitis (principal); Z01.810 Encounter for preprocedural cardiovascular examination; J33.0 Polyp of nasal cavity; I44.7 Left bundle-branch block, unspecified
CPT/HCPCS: 93005

== ENCOUNTER → 2021-04-30 11:51 | Outpatient (BNVA) | payer OTHER, SELFPAY | PROVIDERS: PCP Nurse Practitioner Family; Visit Provider Surgery | DX: Z20.822 Contact with and (suspected) exposure to COVID-19 (principal); Z11.52 Encounter for screening for COVID-19 | CPT/HCPCS: 87635 ==

== ENCOUNTER 2021-05-05 07:22 | Day surgery (SDC) | payer OTHER, SELFPAY ==
[2021-04-30 11:28] VITALS: BMI 40.7
--- NOTE | 2021-05-05 07:54 | W.PM.OPSUD ---
Surgery/Procedure H&P Update DATE OF PROCEDURE: May 05, 2021 DATE H&P PERFORMED: 04/22/21 H&P UPDATE INFORMATION: I have reviewed H&P completed within last 30 days, I have examined patient prior to procedure and No changes to prior documentation PREOP DIAGNOSIS: Abdominal pain PRIMARY INDICATION FOR PROCEDURE: The same PLANNED PROCEDURE: Operation Date: 05/05/21 08:45 Proposed Procedures p EGD/Colon 78379 R10.13(Not Applicable) - Haroon Avila MD s Colonoscopy 93437 Z12.11(Not Applicable) - Haroon Avila MD
[2021-05-05 09:19] VITALS: BP 159/84; PULSE 68; RESP 18; TEMP 36.2; O2SAT 97
--- NOTE | 2021-05-05 09:39 | ANES.PREANE2 ---
Pre-Anesthetic Assessment Pre-Anesthetic Assessment: Height/Weight: Height 1.7 m Weight 117.934 kg Temp Pulse Resp BP Pulse Ox 97.2 F L 68 18 159/84 97 05/05/21 09:19 05/05/21 09:19 05/05/21 09:19 05/05/21 09:19 05/05/21 09:19 Preop Diagnosis: Epigastric pain Proposed Procedure: Operation Date: 05/05/21 08:45 Proposed Procedures p EGD/Colon 87490 R10.13(Not Applicable) - Haroon Avila MD s Colonoscopy 04894 Z12.11(Not Applicable) - Haroon Avila MD Familial anesthetic complications: None Was Beta Reta taken within 24 hours: N/A Was Clonidine taken within 24 hours: N/A Last intake: Intake Last Liquid Date 05/04/21 Last Liquid Time 23:00 Last Solid Date 05/03/21 Social: Social History: No alcohol and No tobacco Exam: Pre-Anes Outpt Exam: alert, oriented x 3, clear to auscultation bilaterally and regular rate & rhythm Airway: Cervical ROM: WNL MP: 3 Dentition: Chipped and Other (very poor dentition, discolored) CV/HEM: CV/HEM: CAD (2 stents), CHF and HTN GI: GI: GERD (not currently) Metabolic: Metabolic: DM, Hyperlipidemia and Morbid obesity Anesthetic Plan: ASA status: 3 Anesthesia: MAC Risk of > 500 ml blood loss (7ml/kg in children): No PFSH Anesthesia PFSH: Medical History Diabetes Hypertension Insulin dependent diabetes mellitus Obesity Surgical History Hx of tubal ligation No pertinent past surgical history Family History Mother Diabetes Father Diabetes Lung disease Other Hypertension Denies family history of CAD (coronary artery disease) Clotting disorder Dementia Hyperlipidemia Psychiatric illness Chronic kidney disease (CKD) Suicide Anesthesia complication Bleeding disorder Family history of premature coronary artery disease Cancer Stroke Social History Alcohol intake: never Lives independently: No Household members: spouse Data Anesthesia Cardiac Studies: No Data to Display
[2021-05-05] MEDS: sodium chloride 0.9% 1,000 ML 30 ML IV (09:50)
[2021-05-05 11:04] VITALS: BP 107/54; PULSE 66; RESP 18; TEMP 36.1; O2SAT 98
--- NOTE | 2021-05-05 11:29 | ANE.PACU2 ---
Inpatient post-anesthesia follow up: Airway intact: Yes Vital signs: Temperature 97.0 F Pulse Rate 66 Respiratory Rate 18 Blood Pressure 107/54 Pulse Oximetry 98 Oxygen Delivery Me thod Nasal Cannula Oxygen Flow Rate 4 Fraction of Inspir ed Oxygen Hydration adequate: Yes Nausea and vomiting: No Mental status: Baseline
[2021-05-05 11:30] VITALS: BP 119/55; PULSE 69; RESP 18; O2SAT 96
[2021-05-11 09:42] LABS: Glucose Point of Care 158 mg/dL (70-110)
== END 2021-05-05 11:53 | disposition home or self-care (01) ==
PROVIDERS: PCP Nurse Practitioner Family; Visit Provider Surgery
PROC: 0DJ08ZZ Inspection of Upper Intestinal Tract, Via Natural or Artificial Opening Endoscopic (ICD-10-PCS; CPT 43235; principal; 2021-05-05 08:45)
PROC: 0DJD8ZZ Inspection of Lower Intestinal Tract, Via Natural or Artificial Opening Endoscopic (ICD-10-PCS; CPT 45378; 2021-05-05 08:45)
DX: Z12.11 Encounter for screening for malignant neoplasm of colon (principal); R10.13 Epigastric pain; D12.4 Benign neoplasm of descending colon; D12.5 Benign neoplasm of sigmoid colon; K57.30 Diverticulosis of large intestine without perforation or abscess without bleeding; K31.7 Polyp of stomach and duodenum; K29.70 Gastritis, unspecified, without bleeding; I25.10 Atherosclerotic heart disease of native coronary artery without angina pectoris; Z95.5 Presence of coronary angioplasty implant and graft; I11.0 Hypertensive heart disease with heart failure; I50.9 Heart failure, unspecified; E66.9 Obesity, unspecified; Z68.41 Body mass index [BMI] 40.0-44.9, adult; E11.9 Type 2 diabetes mellitus without complications; Z79.4 Long term (current) use of insulin; Z82.49 Family history of ischemic heart disease and other diseases of the circulatory system; Z83.3 Family history of diabetes mellitus
CPT/HCPCS: 36416; 43239; 45380; 82962; 88305; 96360; J7030

== ENCOUNTER 2021-06-08 22:21 | Emergency (ER) | payer OTHER, SELFPAY ==
[2021-06-08 22:27] VITALS: BP 150/81; PULSE 102; RESP 18; TEMP 37.7; O2SAT 93; BMI 40.7
--- NOTE | 2021-06-08 22:46 | XRR_ITS ---
PROCEDURE INFORMATION: Exam: XR Chest Exam date and time: 06/08/2021 10:46 PM Age: 61 years old Clinical indication: Cough and fever; Additional info: Productive cough and fever TECHNIQUE: Imaging protocol: XR of the chest. Views: 1 view. COMPARISON: CR XR chest 2V* [id number] 04/13/2021 10:36 AM FINDINGS: Lungs: Mild ill-defined opacity in the left lung base. Pleural spaces: There is no pleural effusion or pneumothorax. Heart/Mediastinum: Cardiomediastinal contours are unremarkable. Bones/joints: Bones are unremarkable. XR/XR chest 1V portable [id number] IMPRESSION: Retrocardiac opacity. Possible pneumonia.
--- NOTE | 2021-06-08 22:48 | W.ED.GENADLT ---
HPI - General Adult General: Chief complaint: General Medical Stated complaint: Coughing\SOB\Muscle Aches Time Seen by Provider: 06/08/21 22:37 History of Present Illness: HPI narrative: Patient is a 61-year-old female comes to the ED with upper respiratory symptoms. Past medical history of diabetes, CKD and congestive heart failure. Patient has a cough, fever and body aches. Symptoms started approximately 3 days ago. She describes her cough as productive with a yellow sputum. Denies any chest pain or shortness of breath. Patient is vaccinated for COVID-19. Associated symptoms: Deny chest pain, dyspnea, headache(s), nausea, rash, palpitations or vomiting Review of Systems Const: Reports: fever(s), chills and body aches; Denies: fatigue Eyes: Denies: change in vision or eye discomfort ENMT: Denies: throat pain, odynophagia, nasal discharge or nasal congestion Card: Denies: chest pain, palpitations, edema, swelling of feet/ankles, dyspnea on exertion or orthopnea Resp: Reports: productive cough; Denies: dyspnea or non-productive cough GI: Denies: abdominal pain, nausea, vomiting, diarrhea, constipation or hematochezia : Denies: flank pain, dysuria or hematuria Musc: Denies: neck pain, back pain or extremity swelling Skin/Breast: Denies: rash or new lesions Neuro: Denies: headache(s), numbness in extremities or weakness in extremities PFSH ED PFSH: Medical History Colon polyp Diabetes Gastric polyp Hypertension Insulin dependent diabetes mellitus Obesity Surgical History Hx of tubal ligation No pertinent past surgical history Family History Mother Diabetes Father Diabetes Lung disease Other Hypertension Denies family history of CAD (coronary artery disease) Clotting disorder Dementia Hyperlipidemia Psychiatric illness Chronic kidney disease (CKD) Suicide Anesthesia complication Bleeding disorder Family history of premature coronary artery disease Cancer Stroke Social History Alcohol intake: never Lives independently: No Household members: spouse Physical Exam Const: COMMON NORMALS: no acute distress, patient oriented x3 and alert GENERAL APPEARANCE: cooperative and comfortable HENMT: COMMON NORMALS: normocephalic HEAD & SCALP: normocephalic MOUTH: moist mucous membranes abnormal Details: parched THROAT: posterior oropharynx normal and uvula midline Eye: COMMON NORMALS: Equal, round and reactive pupils present PUPIL: Yes Equal, round and reactive pupils present Neck/C-Spine: COMMON NORMALS: supple GENERAL: Yes normal visual inspection Resp: COMMON NORMALS: normal respiratory effort, No retractions, No use of accessory muscles and clear to auscultation bilaterally EFFORT & INSPECTION: Yes able to speak in complete sentences, No tachypneic, No respiratory distress and No labored AUSCULTATION: clear to auscultation bilaterally Cardio: COMMON NORMALS: regular rate, regular rhythm, S1 normal heart sound present, S2 normal heart sound present, No gallops present (Cardio), No clicks present (Cardio), No murmurs present (Cardio) and Peripheral pulses 2+ throughout RATE: regular rate RHYTHM: regular rhythm HEART SOUNDS: S1 normal heart sound present and S2 normal heart sound present PERIPHERAL PULSES: Peripheral pulses 2+ throughout GI: COMMON NORMALS: Normal to inspection, nondistended, normoactive bowel sounds present, Soft to palpation, non-tender and no masses PALPATION: Yes Soft to palpation : COMMON NORMALS: Yes no CVA tenderness BLADDER/KIDNEY EXAM: Yes no CVA tenderness Back/Pelvis: COMMON NORMALS: no CVA tenderness Extremity: COMMON NORMALS: normal to inspection Neuro: COMMON NORMALS: patient oriented x3 and moves all extremities SENSORIUM/ORIENTATION: Yes alert Skin: GENERAL SKIN EXAM: dry skin Course Vital Signs: Vital signs: Vital Signs Temperature 100 F H 06/08/21 22:27 Pulse Rate 84 06/09/21 02:00 Respiratory Rate 24 H 06/09/21 02:00 Blood Pressure 122/78 06/09/21 02:00 Pulse Oximetry 93 06/09/21 02:00 MDM - General Adult MDM Narrative: Medical decision making narrative: Patient is a 61-year-old female comes to the ED with upper respiratory symptoms of body aches, cough and fever. Denies any chest pain or shortness of breath. Patient is fully vaccinated for COVID-19. Patient had a temperature of 100 degrees rest of vitals are stable. Patient appears in no acute distress or pain. Her oral mucosa looks a little dry but rest of exam is benign. Influenza negative, Covid 19+. Chest x-ray shows possible lower lobe pneumonia. CBC and BMP were unremarkable. Patient was given a little IV fluids, Tylenol and a dose of azithromycin while here in the ED. Patient qualifies for monoclonal antibody infusions due to positive COVID-19 test and obesity, diabetes and heart failure. I discussed with patient the option of monoclonal antibody infusions and she would like to get set up for that as soon as possible. Patient signed consent form for monoclonal antibody infusions and in patient's file. Placed order with case management for patient to be set up for monoclonal antibody infusions in an outpatient order was filled out and signed as well. Patient diagnosed with COVID-19 and pneumonia discharged home with a prescription for azithromycin. Patient was told to contact the [facility] Review Trackers hotline tomorrow morning to make sure she gets set up for monoclonal antibody infusions. Return to ED precautions given. Follow-up with PCP 5 to 7 days reevaluation. Patient understood agree with plan. Lab Data: Attestation: I reviewed the patient's lab results. Labs: Lab Results 06/08/21 06/08/21 06/09/21 00:30 00:30 00:20 WBC 9.0 10^3/uL 10^3/ uL (4.0-10.0) RBC 3.81 10^6/uL L 10 ^6/uL (4.1-5.3) Hgb 11.3 g/dL L g/dL (11.5-15.3) Hct 34.3 % L % (37.0-47.0) MCV 90.0 fl fl (81-99) MCH 29.7 pg pg (28.0-34.0) MCHC 32.9 g/dL g/dL (30.0-36.0) RDW 13.6 % % (12.1-15.1) Plt Count 204 10^3/cmm 10^3 /cmm (130-400) MPV 11.4 fL H fL (7.4-10.4) Neut % (Auto) 79.2 % % Lymph % (Auto) 9.4 % % [place] % (Auto) 6.3 % % Eos % (Auto) 3.9 % % Baso % (Auto) 0.4 % % Neut # (Auto) 7.13 10^3/uL 10^3 /uL (1.8-7.7) Lymph # (Auto) 0.9 10^3/uL 10^3/ uL (0.8-4.8) [place] # (Auto) 0.6 10^3/uL 10^3/ uL (0.2-0.9) Eos # (Auto) 0.4 10^3/uL 10^3/ uL (0.0-0.8) Baso # (Auto) 0.0 10^3/uL 10^3/ uL (0.0-0.1) Nucleated RBC % (a uto) 0 % % Nucleated RBCs # 0.0 /100WBC /100W BC Sodium 135 mmol/L L mmol /L (136-145) Potassium 4.8 mmol/L mmol/L (3.5-5.1) Chloride 101 mmol/L mmol/L (98-107) Carbon Dioxide 21 mmol/L L mmol/ L (22-29) Anion Gap 17.8 (5-19) BUN 27 mg/dL H mg/dL (8-23) Creatinine 1.2 mg/dL H mg/dL (0.5-0.9) GFR Calculation 45.7 mL/min L mL/ min (90-130) Glucose 290 mg/dL H mg/dL (65-115) Calculated Osmolal ity 296 mOsm/kg H mOs m/kg (285-295) Calcium 8.1 mg/dL L mg/dL (8.5-10.5) Influenza Type A A g Influenza Type B A g SARS-CoV-2 Ag (Rap id) Positive H (Negative) 06/09/21 00:22 WBC RBC Hgb Hct MCV MCH MCHC RDW Plt Count MPV Neut % (Auto) Lymph % (Auto) [place] % (Auto) Eos % (Auto) Baso % (Auto) Neut # (Auto) Lymph # (Auto) [place] # (Auto) Eos # (Auto) Baso # (Auto) Nucleated RBC % (a uto) Nucleated RBCs # Sodium Potassium Chloride Carbon Dioxide Anion Gap BUN Creatinine GFR Calculation Glucose Calculated Osmolal ity Calcium Influenza Type A A g Negative (Negative) Influenza Type B A g Negative (Negative) SARS-CoV-2 Ag (Rap id) Imaging Data^: CXR: Attestation: I personally reviewed and interpreted this imaging study as follows: Radiologist's impression: [address] [place] [address] XRay Report Signed Patient: Rachel Malhotra Unit #: [id number] : 1960 Age/Sex: 61 / F ADM Date: 06/08/21 Loc: ER Room/Bed: Attending Dr: Ordering Provider/Ordering MD: Alex Randall Date of Service: 06/08/21 Procedure(s): XR chest 1V portable [id number] Accession Number(s): [id number] Report Number: [id number] PROCEDURE INFORMATION: Exam: XR Chest Exam date and time: 06/08/2021 10:46 PM Age: 61 years old Clinical indication: Cough and fever; Additional info: Productive cough and fever TECHNIQUE: Imaging protocol: XR of the chest. Views: 1 view. COMPARISON: CR XR chest 2V* [id number] 04/13/2021 10:36 AM FINDINGS: Lungs: Mild ill-defined opacity in the left lung base. Pleural spaces: There is no pleural effusion or pneumothorax. Heart/Mediastinum: Cardiomediastinal contours are unremarkable. Bones/joints: Bones are unremarkable. XR/XR chest 1V portable [id number] IMPRESSION: Retrocardiac opacity. Possible pneumonia. Dictated By: Eric Stiles MD Signed By: Eric Stiles MD Signed Date/Time: 06/09/21 0018 DD/ 2246 Discharge Plan Discharge Patient Disposition: Home Clinical Impression: COVID-19 Pneumonia Qualifiers: Pneumonia type: due to unspecified organism Laterality: left Lung location: lower lobe of lung Qualified Code(s): J18.9 - Pneumonia, unspecified organism Condition: Stable Prescriptions: New azithromycin 250 mg tablet 250 mg PO DAILY 4 Days Qty: 4 RF: 0 No Action ferrous sulfate 325 mg (65 mg iron) tablet,delayed release (DR/EC) 325 mg PO DAILY RF: 0 gabapentin 100 mg capsule 300 mg PO TID RF: 0 atorvastatin 80 mg tablet 80 mg PO DAILY Qty: 90 RF: 3 clopidogrel 75 mg tablet 75 mg PO DAILY Qty: 90 RF: 3 Hold Instructions: Resume on 05/10/21. Lasix 20 mg tablet 40 mg PO DAILY Qty: 180 RF: 3 losartan 50 mg tablet 100 mg PO DAILY Qty: 180 RF: 3 metoprolol tartrate 25 mg tablet 25 mg PO BID Qty: 180 RF: 3 nitroglycerin [Nitrostat] 0.4 mg tablet, sublingual 0.4 mg sublingual Q5M PRN (Reason: Chest Pain) Qty: 25 RF: 3 potassium chloride 20 mEq tablet extended release 20 meq PO BID Qty: 180 RF: 3 magnesium oxide 250 mg magnesium tablet 250 mg PO BID RF: 0 doxycycline hyclate 50 mg capsule 50 mg PO BID RF: 0 insulin aspart U-100 [Novolog Flexpen U-100 Insulin] 100 unit/mL (3 mL) insulin pen 40 unit SUBCUT TID RF: 0 (DME) FreeStyle Renny 2 Sensor Kit See Rx Instructions .Route Qty: 1 RF: 3 (DME) FreeStyle Renny 2 [place] Misc See Rx Instructions .Route Qty: 1 RF: 0 pantoprazole 40 mg tablet,delayed release (DR/EC) 40 mg PO QAM 56 Days Qty: 56 RF: 0 aspirin [Aspirin Low Dose] 81 mg Tablet,Delayed Release (Dr/Ec) 81 mg PO DAILY RF: 0 Hold Instructions: Resume on 05/10/21. calcium carbonate [Calcium 600] 600 mg calcium (1,500 mg) Tablet 600 mg PO DAILY RF: 0 budesonide 0.25 mg/2 mL suspension for nebulization 0.25 mg inhalation BID PRNRF: 0 Levemir FlexTouch U-100 Insuln 100 unit/mL (3 mL) insulin pen 50 unit SUBCUT BID RF: 0 Discharge Orders: Discharge ED (Routine); Ordered 06/09/21 Ordered By: Alex Randall Referrals: Jena Lakhani FNP [Primary Care Provider] - Discharge Diet: Regular Discharge Activity: Increase activity as tolerated Patient Instructions: Pneumonia (ED), COVID-19 (Coronavirus Disease 2019) (ED) Activity Restrictions/Additional Instructions: Follow-up with medical provider as directed. Call tomorrow with the coronavirus [facility] Hotline at [phone] to discuss setting up for monoclonal antibody infusions. Take medications as prescribed. You can start taking azithromycin dose tomorrow. Return to the ER or your medical provider if condition worsens or experiencing any shortness of breath. Please read and understand discharge instructions. Thank you for choosing [facility] for your healthcare needs today. Please realize this is an emergency room and that we are providing you with a medical screening exam and this may not be complete and all inclusive of all the testing and or work up that you may need to determine your ailment or severity of your illness. It is very important that you follow up as instructed or that you return to the Emergency Department should you have concerns or if your condition changes or worsens in any way. Coding Level of Care Code ED Pack Out Operator for Cierra Fwrufino Exam Comprehensive
[2021-06-09] MEDS: acetaminophen 325 mg Tablet 650 MG PO (00:17)
[2021-06-09 01:09] LABS: Basophils % 0.4 %; Eosinophils # 0.4 10^3/uL (0.0-0.8); Eosinophils % 3.9 %; Hematocrit 34.3 % (37.0-47.0); Hemoglobin 11.3 g/dL (11.5-15.3); Lymphocytes # 0.9 10^3/uL (0.8-4.8); Lymphocytes % 9.4 %; Mean Corpuscular HGB Conc 32.9 g/dL (30.0-36.0); Mean Corpuscular Hemoglobin 29.7 pg (28.0-34.0); Mean Platelet Volume 11.4 fL (7.4-10.4); Monocytes # 0.6 10^3/uL (0.2-0.9); Monocytes % 6.3 %; Neutrophils # 7.13 10^3/uL (1.8-7.7); Neutrophils % 79.2 %; Nucleated Red Blood Cells % 0 %; Platelet Count 204 10^3/cmm (130-400); Red Blood Count 3.81 10^6/uL (4.1-5.3); Red Cell Distribution Width 13.6 % (12.1-15.1)
[2021-06-09 01:16] VITALS: BP 122/56; PULSE 86; RESP 21; O2SAT 93
[2021-06-09] MEDS: sodium chloride 0.9% 250 ML IV (01:23)
[2021-06-09 01:35] LABS: Anion Gap 17.8 (5-19); Blood Urea Nitrogen 27 mg/dL (8-23); Calcium 8.1 mg/dL (8.5-10.5); Carbon Dioxide 21 mmol/L (22-29); Chloride 101 mmol/L (98-107); Glomerular Filtration Rate 45.7 mL/min (90-130); Glucose 290 mg/dL (65-115); Osmolality Calculated 296 mOsm/kg (285-295); Potassium 4.8 mmol/L (3.5-5.1); Sodium 135 mmol/L (136-145)
[2021-06-09 01:38] LABS: Creatinine Clr Calc Pharmacy 65.3886
[2021-06-09 01:42] LABS: SARS Covid-2 Antigen Positive (Negative)
[2021-06-09 01:42] LABS: Influenza A by IFA Negative (Negative); Influenza B by IFA Negative (Negative)
[2021-06-09 02:00] VITALS: BP 122/78; PULSE 84; RESP 24; O2SAT 93
[2021-06-09] MEDS: azithromycin 250 mg Tablet 500 MG PO (02:24)
--- NOTE | 2021-06-09 09:48 | DCPLANNER ---
manager infusion had message to schedule an outpatient monoclonal antibody infusion. manager infusion faxed signed order to centralized scheduling, who will call patient with appointment information.
== END 2021-06-09 02:30 | disposition home or self-care (01) ==
PROVIDERS: Emergency Provider Physician Assistant; PCP Nurse Practitioner Family
DX: U07.1 COVID-19 (principal); J18.9 Pneumonia, unspecified organism; Z79.02 Long term (current) use of antithrombotics/antiplatelets; Z79.4 Long term (current) use of insulin; Z79.82 Long term (current) use of aspirin; E11.9 Type 2 diabetes mellitus without complications; I10 Essential (primary) hypertension
CPT/HCPCS: 71045; 80048; 85025; 87040; 87426; 87804; 99283; J7050; Q0144

== ENCOUNTER 2021-06-10 09:11 | Outpatient (CLI) | payer OTHER, SELFPAY ==
[2021-06-10 09:26] VITALS: BP 163/78; PULSE 88; RESP 24; TEMP 36.8; O2SAT 94
[2021-06-10 10:00] VITALS: BMI 39.5
[2021-06-10 10:25] VITALS: BP 150/68; PULSE 87; RESP 20; TEMP 36.8; O2SAT 97
[2021-06-10 11:25] VITALS: BP 157/69; PULSE 83; RESP 20; TEMP 36.6; O2SAT 95
[2021-06-10 11:26] VITALS: BP 157/69; PULSE 83; RESP 20; TEMP 36.6; O2SAT 95
[2021-06-10] MEDS: ondansetron 4 MG Tablet PO (13:48)
== END 2021-06-10 11:26 | disposition home or self-care (01) ==
LOC: OPS 09:11
PROVIDERS: PCP Nurse Practitioner Family; Visit Provider Physician Assistant
DX: U07.1 COVID-19 (principal)
CPT/HCPCS: 96365; Q0162

== ENCOUNTER 2021-06-25 08:10 | Outpatient (CLI) | payer OTHER, SELFPAY ==
--- NOTE | 2021-06-25 08:45 | US_ITS ---
WS: [id number] ULTRASOUND ABDOMEN CLINICAL INFORMATION: R10.13 - Epigastric pain COMPARISON: None. FINDINGS: Technically difficult study due to body habitus Liver Size: Enlarged Craniocaudal length: 16.8 cm. Echogenicity: Coarse Surface nodularity: None. Mass (size and location): None. Bile ducts Intrahepatic ducts: Normal. Common bile duct diameter: 0.4 cm. Gallbladder Hydropic gallbladder with cholelithiasis and sludge. Small amount of edema about the gallbladder. Gallstones: Present Gallbladder sludge: Present Gallbladder wall thickening: None. Pericholecystic fluid: Present Sonographic Hu sign: Absent. Pancreas Normal as visualized. Spleen Splenomegaly: None. Craniocaudal length: 10.8 cm. Right kidney: Normal. Hydronephrosis: None. Size: 12.6 cm x 4.7 cm x 5.1 cm Left kidney: Normal. Hydronephrosis: None. Size: 12.4 cm x 4.3 cm x 5.3 cm. Abdominal aorta and IVC Visualized portions are normal. Ascites: None. US/US abdomen complete* [id number] IMPRESSION: Technically difficult study due to body habitus. 1. Hepatomegaly with diffuse fatty infiltration. 2. Hydropic gallbladder with cholelithiasis and tumefactive sludge. Small amou nt of pericholecystic fluid. No significant gallbladder wall thickening. Recomm end correlation for cholecystitis. 3. Normal common bile duct. 4. No hydronephrosis in either kidney. 5. Normal spleen.
== END 2021-06-25 08:11 | disposition home or self-care (01) ==
LOC: RAD 08:16
PROVIDERS: PCP Nurse Practitioner Family; Visit Provider Surgery
DX: R10.13 Epigastric pain (principal); R16.0 Hepatomegaly, not elsewhere classified; K76.0 Fatty (change of) liver, not elsewhere classified
CPT/HCPCS: 76700

== ENCOUNTER → 2022-02-04 10:48 | Outpatient (BNVA) | payer OTHER, SELFPAY | PROVIDERS: PCP Nurse Practitioner Family; Visit Provider Internal Medicine | DX: E11.65 Type 2 diabetes mellitus with hyperglycemia (principal); E11.9 Type 2 diabetes mellitus without complications; E11.59 Type 2 diabetes mellitus with other circulatory complications; I25.10 Atherosclerotic heart disease of native coronary artery without angina pectoris; E11.22 Type 2 diabetes mellitus with diabetic chronic kidney disease; E11.319 Type 2 diabetes mellitus with unspecified diabetic retinopathy without macular edema; E78.5 Hyperlipidemia, unspecified | CPT/HCPCS: 36415; 80061; 83036 ==

== ENCOUNTER → 2022-07-07 11:29 | Outpatient (BNVA) | payer OTHER, SELFPAY | PROVIDERS: PCP Nurse Practitioner Family; Visit Provider Anesthesiology Pain Medicine | DX: M25.569 Pain in unspecified knee (principal) | CPT/HCPCS: 73564 ==

== ENCOUNTER 2022-07-25 08:28 | Outpatient (CLI) | payer OTHER, SELFPAY ==
[2022-07-25 09:22] LABS: Estmated Average Glucose 240
[2022-07-25 09:27] LABS: Alanine Aminotransferase 21 U/L (0-33); Albumin Level 3.9 g/dL (3.5-5.2); Alkaline Phosphatase 66 U/L (35-105); Aspartate Amino Transferase 28 U/L (0-32); Blood Urea Nitrogen 20 mg/dL (8-23); Calcium 9.2 mg/dL (8.5-10.5); Carbon Dioxide 27 mmol/L (22-29); Chloride 102 mmol/L (98-107); Chol HDL Ratio 4.32 mg/dL (0.0-4.40); Cholesterol 147 mg/dL (0-200); Globulin 2.8 g/dL (1.3-4.6); Glomerular Filtration Rate 63.4 mL/min (90-130); Glucose 140 mg/dL (65-115); HDL Cholesterol 34 mg/dL (60-100); LDL Cholesterol Calculated 82 mg/dL (50-129); LDL HDL Ratio 2.41 RATIO (0.00-3.22); Osmolality Calculated 293 mOsm/kg (285-295); Sodium 139 mmol/L (136-145); Total Bilirubin 0.3 mg/dL (0.15-1.2); Total Protein 6.7 g/dL (6.6-8.7); Triglycerides 154 mg/dL (0-150)
[2022-07-25 09:28] LABS: Creatinine Urine, Random 165 mg/dL (28-217); Microalbumin Random Urine 7 ug/dL (0-20)
[2022-07-25 09:29] LABS: Anion Gap 14.7 (5-19); Potassium 4.7 mmol/L (3.5-5.1)
[2022-07-25 09:30] LABS: Microalbum Creatinine Ratio Ur 42 mg/dL (0-20)
== END 2022-07-25 08:29 | disposition home or self-care (01) ==
PROVIDERS: PCP Nurse Practitioner Family; Visit Provider Internal Medicine
DX: E11.9 Type 2 diabetes mellitus without complications (principal); E78.5 Hyperlipidemia, unspecified; U07.1 COVID-19
CPT/HCPCS: 36415; 80053; 80061; 82044; 83036

== ENCOUNTER 2022-11-02 12:59 | Outpatient (CLI) | payer OTHER, SELFPAY ==
[2022-11-02 13:50] LABS: Alanine Aminotransferase 22 U/L (0-33); Albumin Level 4.3 g/dL (3.5-5.2); Alkaline Phosphatase 74 U/L (35-105); Aspartate Amino Transferase 26 U/L (0-32); Blood Urea Nitrogen 21 mg/dL (8-23); Calcium 8.8 mg/dL (8.5-10.5); Carbon Dioxide 26 mmol/L (22-29); Chloride 100 mmol/L (98-107); Chol HDL Ratio 4.17 mg/dL (0.0-4.40); Cholesterol 146 mg/dL (0-200); Estmated Average Glucose 243; Globulin 2.9 g/dL (1.3-4.6); Glomerular Filtration Rate 63.4 mL/min (90-130); Glucose 286 mg/dL (65-115); HDL Cholesterol 35 mg/dL (60-100); Hemoglobin A1C 10.1 % (4.0-6.0); LDL Cholesterol Calculated 66 mg/dL (50-129); LDL HDL Ratio 1.89 RATIO (0.00-3.22); Osmolality Calculated 299 mOsm/kg (285-295); Sodium 138 mmol/L (136-145); Total Bilirubin 0.4 mg/dL (0.15-1.2); Total Protein 7.2 g/dL (6.6-8.7); Triglycerides 224 mg/dL (0-150)
[2022-11-02 13:51] LABS: Anion Gap 16.1 (5-19); Potassium 4.1 mmol/L (3.5-5.1)
[2022-11-02 13:52] LABS: Creatinine Urine, Random 26 mg/dL (28-217); Microalbumin Random Urine 6 ug/dL (0-20)
[2022-11-02 13:55] LABS: Microalbum Creatinine Ratio Ur 231 mg/dL (0-20)
== END 2022-11-02 13:00 | disposition home or self-care (01) ==
LOC: LAB 13:02
PROVIDERS: PCP Nurse Practitioner Family; Visit Provider Internal Medicine
DX: E11.65 Type 2 diabetes mellitus with hyperglycemia (principal); E11.22 Type 2 diabetes mellitus with diabetic chronic kidney disease
CPT/HCPCS: 80053; 80061; 82044; 83036

== ENCOUNTER 2023-02-02 09:42 | Outpatient (CLI) | payer OTHER, SELFPAY ==
[2023-02-02 10:51] LABS: Alanine Aminotransferase 16 U/L (0-33); Albumin Level 4.4 g/dL (3.5-5.2); Alkaline Phosphatase 66 U/L (35-105); Aspartate Amino Transferase 20 U/L (0-32); Blood Urea Nitrogen 21 mg/dL (8-23); Calcium 9.4 mg/dL (8.5-10.5); Carbon Dioxide 26 mmol/L (22-29); Chloride 103 mmol/L (98-107); Chol HDL Ratio 3.84 mg/dL (0.0-4.40); Cholesterol 142 mg/dL (0-200); Globulin 2.8 g/dL (1.3-4.6); Glomerular Filtration Rate 56.2 mL/min (90-130); Glucose 171 mg/dL (65-115); HDL Cholesterol 37 mg/dL (60-100); LDL Cholesterol Calculated 71 mg/dL (50-129); LDL HDL Ratio 1.92 RATIO (0.00-3.22); Osmolality Calculated 301 mOsm/kg (285-295); Sodium 142 mmol/L (136-145); Total Bilirubin 0.7 mg/dL (0.15-1.2); Total Protein 7.2 g/dL (6.6-8.7); Triglycerides 169 mg/dL (0-150)
[2023-02-02 10:53] LABS: Estmated Average Glucose 229; Hemoglobin A1C 9.6 % (4.0-6.0)
[2023-02-02 11:08] LABS: Creatinine Urine, Random 38 mg/dL (28-217); Microalbumin Random Urine 9 ug/dL (0-20)
[2023-02-02 11:14] LABS: Microalbum Creatinine Ratio Ur 237 mg/dL (0-20)
== END 2023-02-02 09:43 | disposition home or self-care (01) ==
PROVIDERS: PCP Nurse Practitioner Family; Visit Provider Internal Medicine
DX: E11.59 Type 2 diabetes mellitus with other circulatory complications (principal); E11.65 Type 2 diabetes mellitus with hyperglycemia; I25.10 Atherosclerotic heart disease of native coronary artery without angina pectoris
CPT/HCPCS: 80053; 80061; 82044; 83036

== ENCOUNTER 2023-02-06 15:43 | Outpatient (CLI) | payer OTHER, SELFPAY ==
--- NOTE | 2023-02-06 | MR_ITS ---
WS: [id number] MRI LUMBAR SPINE NONCONTRAST TECHNIQUE: Sagittal T1, T2 and STIR imaging. Axial T1 and T2 imaging. CLINICAL INFORMATION: VERTEBROGENIC LBP COMPARISON: None. FINDINGS: Counting performed from the craniocervical junction. 4 lumbar-type vertebral bodies. L5 is sacralized . Disc space narrowing worse at L4-5 with endplate degenerative changes RIGHT paracentral protrusion. Impingement on the RIGHT L5 nerve root. L1-L2: Mild facet arthropathy. Spinal canal and foramen are patent. L2-L3: Mild annular bulging. Modest arthropathy. Spinal canal and foramen are patent. L3-L4: Mild annular bulging with mild facet arthropathy. Spinal canal and foramen are patent. L4-L5: RIGHT paracentral protrusion with impingement traversing RIGHT L5 nerve root in the subarticu lar recess. Far RIGHT foraminal protrusion with a small annular fissure with slight contact of the ex iting RIGHT L4 nerve root. Mild facet arthropathy. L5-S1: L5 is sacralized. Visualized pelvic bony structures: Normal. Paravertebral soft tissues: Normal. IMPRESSION: 1. Counting performed from the craniocervical junction. 4 lumbar type vertebral bodies. Recommend pl ain film correlation prior to surgical intervention. L5 is sacralized. 2. Mild lumbar curve. No acute compression. Disc base narrowing worse at L4-5. 3. Disc base narrowing worse at L4-5 with endplate degenerative changes. RIGHT subarticular protrusi on impinges the traversing RIGHT L5 nerve root in the subarticular recess. 4. Small far RIGHT foraminal protrusion L4-5 contacts the exiting RIGHT L4 nerve root laterally with a small annular fissure. 5. Mild facet arthropathy L4-L5 and L5-S1.
== END 2023-02-06 15:44 | disposition home or self-care (01) ==
PROVIDERS: PCP Nurse Practitioner Family; Visit Provider Nurse Practitioner
DX: M47.817 Spondylosis without myelopathy or radiculopathy, lumbosacral region (principal); M54.51 Vertebrogenic low back pain
CPT/HCPCS: 72148

== ENCOUNTER 2023-06-07 17:26 | Emergency (ER) | payer OTHER, SELFPAY ==
--- NOTE | 2023-06-07 17:28 | XRR_ITS ---
PROCEDURE INFORMATION: Exam: XR Chest Exam date and time: 06/07/2023 6:03 PM Age: 63 years old Clinical indication: Pain; Chest pressure; Additional info: Cp TECHNIQUE: Imaging protocol: Radiologic exam of the chest. Views: 1 view. COMPARISON: CR XR chest 1V portable [id number] 06/08/2021 11:03 PM FINDINGS: Lungs: Low lung volumes. No focal consolidation. Pleural spaces: No pleural effusion. No pneumothorax. Heart/Mediastinum: No cardiomegaly. Bones/joints: No acute findings. XR/XR chest 1V portable [id number] IMPRESSION: No acute findings.
--- NOTE | 2023-06-07 17:32 | ECG_ITS ---
[facility] Test Date: 2023-06-07 Pat Name: Rachel Malhotra Department: Room: Gender: Female Anesthesia Director: : 1960 Requested By: Scott Panchal Order Number: [id number] Steve MD: Jason Sow M.D. Measurements Intervals Clark Rate: 110 P: 46 NJ: 179 QRS: -14 QRSD: 142 T: 126 QT: 371 QTc: 502 Interpretive Statements SINUS TACHYCARDIA LEFT BUNDLE BRANCH BLOCK [120+ ms QRS DURATION, 80+ ms Q/S IN V1/V2, 85+ ms R IN I/aVL/V5/V6] Compared to ECG 04/20/2021 11:06:25 Sinus rhythm no longer present Electronically Signed On 06-08-2023 7:09:55 [employer]IMMER by Jason Sow M.D. [email or web address]
[2023-06-07 17:34] VITALS: BP 154/76; PULSE 107; RESP 19; TEMP 37.2; O2SAT 94; BMI 39.5
[2023-06-07 18:13] LABS: Basophils # 0.1 10^3/uL (0.0-0.1); Basophils % 0.6 %; Eosinophils # 0.3 10^3/uL (0.0-0.8); Eosinophils % 2.8 %; Hematocrit 35.3 % (36-47); Lymphocytes # 2.8 10^3/uL (0.8-4.8); Lymphocytes % 29.1 %; Mean Corpuscular HGB Conc 33.4 g/dL (30-55); Mean Corpuscular Hemoglobin 28.9 pg (27-33); Mean Corpuscular Volume 86.5 fl (85-98); Mean Platelet Volume 10.7 fL (7.4-10.4); Monocytes # 0.5 10^3/uL (0.2-0.9); Monocytes % 5.5 %; Neutrophils # 5.98 10^3/uL (1.8-7.7); Neutrophils % 61.6 %; Nucleated Red Blood Cells % 0 %; Platelet Count 202 10^3/cmm (157-399); Red Blood Count 4.08 10^6/uL (3.85-5.65); Red Cell Distribution Width 14.4 % (12.1-15.1); White Blood Count 9.71 10^3/uL (3.29-11.43)
--- NOTE | 2023-06-07 18:23 | W.ED.CHESTPA ---
HPI - Chest Pain General: Chief Complaint: Chest Pain Stated Complaint: chest pains,sob Time Seen by Provider: 06/07/23 18:20 History of Present Illness: 63-year-old female with complex medical history including coronary disease presents emergency room today chest pain for the past 4 days. Patient described pain as pressure-like sensation with severity of 7 out of 10 few days ago. Patient was seen and evaluated in clinic today and was sent to [facility] for further evaluation. Upon present emergency room patient described pain as pressure-like sensation at the center of her chest and denies any radiation. No nausea, vomiting, fever or chills. No known sick contact recent foreign travel. Associated symptoms: Reports dyspnea; Deny fever(s), palpitations or syncope Review of Systems General: Reports: 10 or more systems reviewed and unremarkable except in HPI and below Const: Denies: fever(s), chills, body aches, change in appetite, change in weight, fatigue or malaise Card: Reports: chest pain; Denies: palpitations, irregular heart rhythm, edema, lightheadedness, syncope, pre-syncope, dyspnea on exertion, orthopnea, leg pain with exertion or acrocyanosis Resp: Reports: dyspnea, productive cough and hemoptysis Musc: Denies: neck pain, back pain, extremity pain or extremity swelling Neuro: Denies: headache(s), numbness in extremities, weakness in extremities, sensory changes, lack of coordination, difficulty walking, frequent falls, dizziness or vertigo [facility] ED PFSH: Medical History Colon polyp Gastric polyp Diabetes Hypertension Obesity Insulin dependent diabetes mellitus Surgical History S/P nasal surgery S/P cataract surgery Hx of tubal ligation No pertinent past surgical history Family History Mother Diabetes Father Diabetes Lung disease Other Hypertension Social History Smoking and tobacco/nicotine status: never used tobacco/nicotine Alcohol intake: never Substance/Drug Use: former Lives independently: No Household members: spouse Physical Exam Const: COMMON NORMALS: no acute distress, average body habitus, patient oriented x3, no limitations, healthy appearing, alert and well nourished Neck/C-Spine: COMMON NORMALS: full ROM, no lymphadenopathy, supple, no meningeal signs, no JVD, Thyroid normal and No carotid bruits THYROID: Thyroid normal Chest: COMMONS NORMALS: normal inspection of the chest, normal palpation of entire chest wall, normal inspection of the breasts and normal palpation of the breasts Breast/axilla inspection: Yes normal inspection of the breasts BREAST/AXILLA PALPATION: Yes normal palpation of the breasts Resp: COMMON NORMALS: normal respiratory effort, No retractions, No use of accessory muscles, clear to auscultation bilaterally and percussion normal AUSCULTATION: clear to auscultation bilaterally PERCUSSION: percussion normal Cardio: COMMON NORMALS: no JVD GI: COMMON NORMALS: Normal to inspection, nondistended, normoactive bowel sounds present, Soft to palpation, non-tender, No hepatosplenomegaly present, no masses and no bruits PALPATION: Yes Soft to palpation and Yes No hepatosplenomegaly present Extremity: OTHER: trace pitting edema both legs Neuro: COMMON NORMALS: patient oriented x3 SENSORIUM/ORIENTATION: Yes alert MENINGEAL SIGNS: Yes no meningeal signs Skin: COMMON NORMALS: no rashes or lesions noted, no wounds, turgor normal, no jaundice, no petechiae and no mottling GENERAL SKIN EXAM: no rashes or lesions noted and turgor normal Course Vital Signs: Vital signs: Vital Signs Temperature 98.9 F 06/07/23 17:34 Pulse Rate 100 06/07/23 18:28 Respiratory Rate 19 H 06/07/23 17:34 Blood Pressure 139/78 06/07/23 22:33 Pulse Oximetry 98 06/07/23 22:33 Oxygen Delivery Me thod Room Air 06/07/23 21:06 MDM - Chest Pain Medical Decision Making Patient was made comfortable emergency room had extensive workup done including CBC, CMP, chest x-ray, EKG and troponin x 2. Given the history and presenting symptoms I do recommend admission but patient preferred to be discharged. She reviews that she is feeling better. Follow-up PCP and customer operations associate recommended for further evaluation and treatment. Patient improved significantly with the IV Lasix. Differential Diagnosis Likely acute massive pulmonary embolism, acute respiratory failure, acute myocardial infarction, cardiac arrest and sudden cardiac Lab Data 06/07/23 18:00 06/07/23 18:00 Radiology Impressions Chest X-Ray 06/07/23 17:28 IMPRESSION: No acute findings. Chest CTA 06/07/23 19:10 IMPRESSION: No acute findings. Negative for pulmonary embolism. Laboratory Results WBC 9.71 10^3/uL (3.29-11.43) 06/07/23 18:00 RBC 4.08 10^6/uL (3.85-5.65) 06/07/23 18:00 Hgb 11.80 g/dL (11.27-16.99) 06/07/23 18:00 Hct 35.3 % (36-47) L 06/07/23 18:00 MCV 86.5 fl (85-98) 06/07/23 18:00 MCH 28.9 pg (27-33) 06/07/23 18:00 MCHC 33.4 g/dL (30-55) 06/07/23 18:00 RDW 14.4 % (12.1-15.1) 06/07/23 18:00 Plt Count 202 10^3/cmm (157-399) 06/07/23 18:00 MPV 10.7 fL (7.4-10.4) H 06/07/23 18:00 Neut % (Auto) 61.6 % 06/07/23 18:00 Lymph % (Auto) 29.1 % 06/07/23 18:00 [place] % (Auto) 5.5 % 06/07/23 18:00 Eos % (Auto) 2.8 % 06/07/23 18:00 Baso % (Auto) 0.6 % 06/07/23 18:00 Neut # (Auto) 5.98 10^3/uL (1.8-7.7) 06/07/23 18:00 Lymph # (Auto) 2.8 10^3/uL (0.8-4.8) 06/07/23 18:00 [place] # (Auto) 0.5 10^3/uL (0.2-0.9) 06/07/23 18:00 Eos # (Auto) 0.3 10^3/uL (0.0-0.8) 06/07/23 18:00 Baso # (Auto) 0.1 10^3/uL (0.0-0.1) 06/07/23 18:00 Nucleated RBC % (auto) 0 % 06/07/23 18:00 Nucleated RBCs # 0.0 /100WBC 06/07/23 18:00 PT 13.40 SECONDS (12.1-14.9) 06/07/23 18:00 INR 0.99 (0.8-1.2) 06/07/23 18:00 D-Dimer 0.82 ug/mLFEU (0-0.59) H 06/07/23 18:00 Sodium 142 mmol/L (136-145) 06/07/23 18:00 Potassium 3.8 mmol/L (3.5-5.1) 06/07/23 18:00 Chloride 103 mmol/L (98-107) 06/07/23 18:00 Carbon Dioxide 23 mmol/L (22-29) 06/07/23 18:00 Anion Gap 19.8 (5-19) H 06/07/23 18:00 BUN 18 mg/dL (8-23) 06/07/23 18:00 Creatinine 1.3 mg/dL (0.5-0.9) H 06/07/23 18:00 GFR Calculation 41.4 mL/min (90-130) L 06/07/23 18:00 Glucose 184 mg/dL (65-115) H 06/07/23 18:00 Calculated Osmolality 301 mOsm/kg (285-295) H 06/07/23 18:00 Calcium 9.4 mg/dL (8.5-10.5) 06/07/23 18:00 Total Bilirubin 0.5 mg/dL (0.15-1.2) 06/07/23 18:00 AST 26 U/L (0-32) 06/07/23 18:00 ALT 21 U/L (0-33) 06/07/23 18:00 Alkaline Phosphatase 68 U/L (35-105) 06/07/23 18:00 Troponin T Baseline 27 ng/L (0-10) H 06/07/23 18:00 Troponin T 120 Minute 30.13 ng/L (0-10) H 06/07/23 19:51 Delta Troponin T 3.13 ABS# (0-10) 06/07/23 19:51 NT-Pro-B Natriuret Pep 665 pg/mL (0-125) H 06/07/23 18:00 Total Protein 6.9 g/dL (6.6-8.7) 06/07/23 18:00 Albumin 4.2 g/dL (3.5-5.2) 06/07/23 18:00 Globulin 2.7 g/dL (1.3-4.6) 06/07/23 18:00 XR interpretation done by ED provider, pending radiology final review EKG Data EKG 1: Interpretation: Sinus rhythm rate of 94 there is left bundle branch block. MD interval 180 QT 440. I reviewed previous EKG TIA left bundle branch block is not new. Discharge Plan Discharge Patient Disposition: Home Clinical Impression: Chest pain, CHF (congestive heart failure) CAD (coronary artery disease) Qualifiers: Coronary Disease-Associated Artery/Lesion type: [place] artery [place] vs. transplanted heart: [place] heart Associated angina: angina presence unspecified Qualified Code(s): I25.10 - Atherosclerotic heart disease of [place] coronary artery without angina pectoris Condition: Stable Prescriptions: No Action gabapentin 100 mg capsule 300 mg PO BID potassium chloride 20 mEq tablet extended release 20 meq PO BID Qty: 180 3RF omeprazole 20 mg capsule,delayed release(DR/EC) 20 mg PO DAILY (DME) FreeStyle Test Strip See Rx Instructions .Route Qty: 100 3RF Rx Instructions: As directed (DME) pen needle, diabetic [Comfort EZ Pen [place]ett] 32 gauge x 5/32 needle See Rx Instructions .Route Qty: 400 3RF Rx Instructions: As directed (DME) FreeStyle Renny 2 [place] Misc See Rx Instructions .Route Qty: 1 0RF Rx Instructions: Check BS 4 times a day. tramadol 50 mg tablet 50 mg PO BID PRN ammonium lactate 5 % lotion 1 applic topical DAILY PRN (Reason: dry skin) Qty: 226 0RF Rx Instructions: Apply small amount to affected area daily (DME) Diabetic Shoes See Rx Instructions .Route .MEDSUPPLY Qty: 1 0RF Rx Instructions: As directed tizanidine 2 mg tablet 2 mg PO Q8H PRN Ozempic 1 mg/dose (4 mg/3 mL) pen injector 1 mg SUBCUT .weekly Qty: 3 0RF Rx Instructions: 1 mg weekly for 1 month (DME) FreeStyle Renny 2 Sensor Kit See Rx Instructions .Route Qty: 6 3RF Rx Instructions: Change every 14 days. Lasix 20 mg tablet 40 mg PO DAILY Qty: 180 1RF nitroglycerin [Nitrostat] 0.4 mg tablet, sublingual 0.4 mg sublingual Q5M PRN (Reason: Chest Pain) Qty: 25 1RF Humulin R U-500 (Conc) Kwikpen 500 unit/mL (3 mL) insulin pen See Rx Instructions .ROUTE .COMPLEX Qty: 18 2RF Dose Instruction: INJECT 90 UNITS SUBCUTANEOUSLY THREE TIMES DAILY BEFORE MEALS Rx Instructions: INJECT 90 UNITS SUBCUTANEOUSLY THREE TIMES DAILY BEFORE MEALS atorvastatin 80 mg tablet 80 mg PO DAILY Qty: 90 1RF metoprolol tartrate 25 mg tablet 25 mg PO BID Qty: 180 3RF clopidogrel 75 mg tablet 75 mg PO DAILY Qty: 90 3RF Hold Instructions: Resume on 05/10/21. losartan 100 mg tablet 100 mg PO DAILY Qty: 90 1RF Ozempic 2 mg/dose (8 mg/3 mL) pen injector See Rx Instructions .ROUTE .COMPLEX Qty: 3 2RF Dose Instruction: INJECT 2MG (0.75ML) SUBCUTANEOUSLY every week FOR ONE MONTH AND CONTINUE Rx Instructions: INJECT 2MG (0.75ML) SUBCUTANEOUSLY every week FOR ONE MONTH AND CONTINUE aspirin [Linh Low Dose Aspirin] 81 mg Tablet,Delayed Release (Dr/Ec) 81 mg PO DAILY Hold Instructions: Resume on 05/10/21. 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
[2023-06-07 18:28] VITALS: BP 154/82; PULSE 100
[2023-06-07] MEDS: nitroglycerin 1 gm/inch oint Pkt 1 INCH TOPICAL (18:28)
[2023-06-07] MEDS: aspirin 81 mg Chew Tablet 324 MG PO (18:28)
[2023-06-07 18:30] LABS: INR 0.99 (0.8-1.2)
[2023-06-07 18:37] LABS: Troponin(5th) Baseline 27 ng/L (0-10)
[2023-06-07 18:47] LABS: Alanine Aminotransferase 21 U/L (0-33); Albumin Level 4.2 g/dL (3.5-5.2); Alkaline Phosphatase 68 U/L (35-105); Anion Gap 19.8 (5-19); Aspartate Amino Transferase 26 U/L (0-32); Blood Urea Nitrogen 18 mg/dL (8-23); Calcium 9.4 mg/dL (8.5-10.5); Carbon Dioxide 23 mmol/L (22-29); Chloride 103 mmol/L (98-107); Globulin 2.7 g/dL (1.3-4.6); Glomerular Filtration Rate 41.4 mL/min (90-130); Glucose 184 mg/dL (65-115); NT Pro B Type Natriuretic Pept 665 pg/mL (0-125); Osmolality Calculated 301 mOsm/kg (285-295); Potassium 3.8 mmol/L (3.5-5.1); Sodium 142 mmol/L (136-145); Total Bilirubin 0.5 mg/dL (0.15-1.2); Total Protein 6.9 g/dL (6.6-8.7)
[2023-06-07 18:51] LABS: D Dimer 0.82 ug/mLFEU (0-0.59)
--- NOTE | 2023-06-07 19:10 | CTR_ITS ---
PROCEDURE INFORMATION: Exam: CTA Chest With Contrast Exam date and time: 06/07/2023 9:19 PM Age: 63 years old Clinical indication: Dyspnea; Additional info: SOB with elevated d-dimer TECHNIQUE: Imaging protocol: Computed tomographic angiography of the chest with contrast. Exam focused on the arteries. 3D rendering (Not supervised by radiologist): MIP and/or 3D reconstructed images were created by the technologist. Radiation optimization: All CT scans at this facility use at least one of these dose optimization techniques: automated exposure control; mA and/or kV adjustment per patient size (includes targeted exams where dose is matched to clinical indication); or iterative reconstruction. Contrast material: OMNI 350; Contrast volume: 80 ml; Contrast route: INTRAVENOUS (IV); REPORTING DATA: Count of CT and Cardiac NM exams in prior 12 months: This patient has received 0 known CTs and 0 known cardiac nuclear medicine studies in the 12 months prior to the current study. COMPARISON: CR (CHEST, ) 06/07/2023 6:03 PM RADIATION DOSE METRICS: Total DLP (mGy-cm): 575.1 FINDINGS: Pulmonary arteries: Normal. No pulmonary emboli. Aorta: No aortic aneurysm. No aortic dissection. Lungs: No consolidation. No masses. Pleural spaces: No pneumothorax. No pleural effusion. Heart: No cardiomegaly. No pericardial effusion. Lymph nodes: No enlarged lymph nodes. Bones/joints: No acute fracture. Soft tissues: Unremarkable. CT/CT angio chest PE protcl [id number] IMPRESSION: No acute findings. Negative for pulmonary embolism.
--- NOTE | 2023-06-07 19:28 | ECG_ITS ---
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 Measurements Intervals [place] Rate: 94 P: 55 OK: 180 QRS: -24 QRSD: 140 T: 127 QT: 388 QTc: 488 Interpretive Statements SINUS RHYTHM LEFT BUNDLE BRANCH BLOCK [120+ ms QRS DURATION, 80+ ms Q/S IN V1/V2, 85+ ms R IN I/aVL/V5/V6] Compared to ECG 06/07/2023 17:32:43 Sinus tachycardia no longer present Electronically Signed On 06-08-2023 7:10:39 TELEPHONE SOLICITOR SUPERVISOR by Jason Sow M.D. [id number]
[2023-06-07] MEDS: FUROsemide 10 mg/mL SDV 10mL 60 MG IVP (19:30)
[2023-06-07 20:15] LABS: Troponin 5 2HR 30.13 ng/L (0-10); Troponin 5 2HR Delta 3.13 ABS# (0-10)
[2023-06-07 21:06] VITALS: BP 139/78; O2SAT 98
[2023-06-07] MEDS: iohexol 350 mg/mL 500 mL Btl (per mL) IV (21:23)
[2023-06-07 22:33] VITALS: BP 139/78; O2SAT 98
== END 2023-06-07 22:34 | disposition home or self-care (01) ==
PROVIDERS: Emergency Medicine; Emergency Provider Family Medicine; PCP Nurse Practitioner Family
DX: R07.9 Chest pain, unspecified (principal); I11.0 Hypertensive heart disease with heart failure; I50.9 Heart failure, unspecified; I25.10 Atherosclerotic heart disease of native coronary artery without angina pectoris; Z79.4 Long term (current) use of insulin; Z79.02 Long term (current) use of antithrombotics/antiplatelets; Z79.82 Long term (current) use of aspirin; E11.9 Type 2 diabetes mellitus without complications
CPT/HCPCS: 36415; 71045; 71275; 80053; 83880; 84484; 85025; 85378; 85610; 93005; 96374; 99285; J1940; Q9967

== ENCOUNTER 2023-06-16 09:33 | Emergency (ER) | payer OTHER, SELFPAY ==
[2023-06-16 09:35] VITALS: BP 157/85; PULSE 92; RESP 17; TEMP 37.1; O2SAT 92
--- NOTE | 2023-06-16 09:37 | XRR_ITS ---
PROCEDURE INFORMATION: Exam: XR Chest Exam date and time: 06/16/2023 10:27 AM Age: 63 years old Clinical indication: Pain; Angina pectoris; Additional info: Chest pain TECHNIQUE: Imaging protocol: Radiologic exam of the chest. Views: 1 view. COMPARISON: CT angio chest PE protcl [id number] 06/07/2023 9:19 PM FINDINGS: Lungs: Unremarkable. No consolidation. Pleural spaces: Unremarkable. No pleural effusion. No pneumothorax. Heart/Mediastinum: Unremarkable. No cardiomegaly. Bones/joints: Unremarkable. XR/XR chest 1V portable [id number] IMPRESSION: No acute findings.
--- NOTE | 2023-06-16 09:39 | ECG_ITS ---
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 Measurements Intervals [place] Rate: 93 P: 46 PA: 189 QRS: -23 QRSD: 148 T: 123 QT: 386 QTc: 482 Interpretive Statements SINUS RHYTHM LEFT BUNDLE BRANCH BLOCK [120+ ms QRS DURATION, 80+ ms Q/S IN V1/V2, 85+ ms R IN I/aVL/V5/V6] Compared to ECG 06/07/2023 21:10:37 No significant changes Electronically Signed On 06-16-2023 16:39:46 GUN SYNCHRONIZER by Clinton Smith M.D. [id number]
[2023-06-16 10:21] LABS: Basophils % 0.5 %; Eosinophils # 0.2 10^3/uL (0.0-0.8); Eosinophils % 2.7 %; Hematocrit 36.9 % (36-47); Lymphocytes # 1.3 10^3/uL (0.8-4.8); Mean Corpuscular HGB Conc 32.5 g/dL (30-55); Mean Corpuscular Hemoglobin 28.8 pg (27-33); Mean Corpuscular Volume 88.7 fl (85-98); Mean Platelet Volume 10.7 fL (7.4-10.4); Monocytes # 0.5 10^3/uL (0.2-0.9); Monocytes % 6.4 %; Neutrophils # 5.35 10^3/uL (1.8-7.7); Neutrophils % 71.7 %; Nucleated Red Blood Cells % 0 %; Platelet Count 155 10^3/cmm (157-399); Red Blood Count 4.16 10^6/uL (3.85-5.65); Red Cell Distribution Width 14.6 % (12.1-15.1); White Blood Count 7.47 10^3/uL (3.29-11.43)
[2023-06-16 10:42] LABS: Troponin(5th) Baseline 106 ng/L (0-10)
[2023-06-16 10:47] LABS: Alanine Aminotransferase 19 U/L (0-33); Albumin Level 4.1 g/dL (3.5-5.2); Alkaline Phosphatase 71 U/L (35-105); Anion Gap 16.9 (5-19); Aspartate Amino Transferase 36 U/L (0-32); Blood Urea Nitrogen 39 mg/dL (8-23); Calcium 8.7 mg/dL (8.5-10.5); Carbon Dioxide 26 mmol/L (22-29); Chloride 99 mmol/L (98-107); Globulin 2.9 g/dL (1.3-4.6); Glucose 122 mg/dL (65-115); NT Pro B Type Natriuretic Pept 375 pg/mL (0-125); Osmolality Calculated 297 mOsm/kg (285-295); Potassium 3.9 mmol/L (3.5-5.1); Sodium 138 mmol/L (136-145); Total Bilirubin 0.4 mg/dL (0.15-1.2)
[2023-06-16 11:05] VITALS: BP 125/66; PULSE 89; RESP 18; O2SAT 92
--- NOTE | 2023-06-16 11:13 | ED_ITS ---
HPI - Chest Pain 2 General: Chief Complaint: Chest Pain Stated Complaint: Cp Time Seen by Provider: 06/16/23 11:12 History of Present Illness: 63-year-old female presents emergency de partment with complaints of intermittent sharp stabbing chest pain to the left anterior chest wall she states it started yesterday afternoon. She states she has had a bad cough for the previous 2 weeks and feels like the cough is it is getting worse over the past 2 to 3 days. She states her chest wall discomfort is mostly while or immediately after she coughs. She states she does have a coronary artery disease history with 5 coronary artery stents. She states that she takes anticoagulation and has not missed any doses of her medication. She does endorse recent sick contacts with similar illnesses. Review of Systems 2 General: Reports: 10 or more systems reviewed and unremarkable except in HPI and below Card: Reports: chest pain Resp: Reports: non-productive cough PFSH ED 2 PFSH: Medical History Colon polyp Gastric polyp Diabetes Hypertension Obesity Insulin dependent diabetes mellitus Surgical History S/P nasal surgery S/P cataract surgery Hx of tubal ligation No pertinent past surgical history Family History Mother Diabetes Father Diabetes Lung disease Other Hypertension Social History Smoking and tobacco/nicotine status: never used tobacco/nicotine Alcohol intake: never Substance/Drug Use: former Lives independently: No Household members: spouse Physical Exam 2 Narrative: EXAM NARRATIVE: Constitutional: the patient appears well nourished and with normal development. Vital signs reviewed as documented. HENMT: Normocephalic, atraumatic. Extermal ears with normal appearance without drainage. Nose without drainage, normal appearance. Mucus membranes moist. Neck is supple, No jugular venous distension, trachea is midline, no appreciable carotid bruits. No lymphadenopathy. No meningeal signs. Flexion, extension and lateral rotation is without pain. Eyes: Pupils are equal, round, reactive to light and accommodation. No scleral icterus. Extra-ocular movement are intact. Thorax is symmetrical and with equal rise and fall with respirations. Resp: Lungs are clear to auscultation. No wheezes, rales, crackles or ronchi at present. Cardio: Regular rate and rhythm. Positive S1, S2. No appreciable murmurs, rubs or gallops. GI: Abdominal exam reveals normal bowel sounds to all quadrants. No organomegaly. No obvious palpable masses noted. No hepatomegally appreciated. Soft, nontender to palpation. Extremity: Extremities are non-edematous and both femoral and pedal pulses are 2+ and equal bilaterally. Moves all extremities well, sensation in all extremities. Neuro: Alert and oriented x4, person, place, time and situation. Cranial nerves II through XII are grossly intact, there is no focal neurological deficits that I can appreciate at present. Motor strength in the upper and lower extremities are equal and bilateral 5/5. Psych: Cooperative, calm, normal thought process, appropriate judgment. Skin: No lesions, rashes. No gross abnormalities noted. Back: Symmetrical, no obvious deformity, No CVA tenderness Course 2 Vital Signs: Vital signs: Vital Signs Temperature 98.8 F 06/16/23 09:35 Pulse Rate 96 06/16/23 12:38 Respiratory Rate 13 06/16/23 12:38 Blood Pressure 144/78 06/16/23 12:38 Pulse Oximetry 89 L 06/16/23 12:38 Oxygen Delivery Me thod Room Air 06/16/23 12:38 MDM - Chest Pain Medical Decision Making Physical exam completed and documented, I will obtain serial twelve-lead EKG evaluations, serial cardiac enzymes, chest x-ray, BNP, CBC, CMP, PT, PTT/INR for evaluation of the patient's chest pain. I will obtain a urinalysis and continuous cardiac monitoring and reevaluate as needed. I will provide cardiac dose aspirin, for platelet inhibition. Will provide supplemental oxygen and nitroglycerin as needed following the guidelines/parameters. Medical Records I reviewed the patient's medical records. Lab Data 06/16/23 10:09 06/16/23 10:09 Radiology Impressions Chest X-Ray 06/16/23 09:37 IMPRESSION: No acute findings. Laboratory Results WBC 7.47 10^3/uL (3.29-11.43) 06/16/23 10:09 RBC 4.16 10^6/uL (3.85-5.65) 06/16/23 10:09 Hgb 12.00 g/dL (11.27-16.99) 06/16/23 10:09 Hct 36.9 % (36-47) 06/16/23 10:09 MCV 88.7 fl (85-98) 06/16/23 10:09 MCH 28.8 pg (27-33) 06/16/23 10:09 MCHC 32.5 g/dL (30-55) 06/16/23 10:09 RDW 14.6 % (12.1-15.1) 06/16/23 10:09 Plt Count 155 10^3/cmm (157-399) L 06/16/23 10:09 MPV 10.7 fL (7.4-10.4) H 06/16/23 10:09 Neut % (Auto) 71.7 % 06/16/23 10:09 Lymph % (Auto) 17.0 % 06/16/23 10:09 [place] % (Auto) 6.4 % 06/16/23 10:09 Eos % (Auto) 2.7 % 06/16/23 10:09 Baso % (Auto) 0.5 % 06/16/23 10:09 Neut # (Auto) 5.35 10^3/uL (1.8-7.7) 06/16/23 10:09 Lymph # (Auto) 1.3 10^3/uL (0.8-4.8) 06/16/23 10:09 [place] # (Auto) 0.5 10^3/uL (0.2-0.9) 06/16/23 10:09 Eos # (Auto) 0.2 10^3/uL (0.0-0.8) 06/16/23 10:09 Baso # (Auto) 0.0 10^3/uL (0.0-0.1) 06/16/23 10:09 Nucleated RBC % (auto) 0 % 06/16/23 10:09 Nucleated RBCs # 0.0 /100WBC 06/16/23 10:09 Sodium 138 mmol/L (136-145) 06/16/23 10:09 Potassium 3.9 mmol/L (3.5-5.1) 06/16/23 10:09 Chloride 99 mmol/L (98-107) 06/16/23 10:09 Carbon Dioxide 26 mmol/L (22-29) 06/16/23 10:09 Anion Gap 16.9 (5-19) 06/16/23 10:09 BUN 39 mg/dL (8-23) H 06/16/23 10:09 Creatinine 1.4 mg/dL (0.5-0.9) H 06/16/23 10:09 GFR Calculation 38.0 mL/min (90-130) L 06/16/23 10:09 Glucose 122 mg/dL (65-115) H 06/16/23 10:09 Calculated Osmolality 297 mOsm/kg (285-295) H 06/16/23 10:09 Calcium 8.7 mg/dL (8.5-10.5) 06/16/23 10:09 Total Bilirubin 0.4 mg/dL (0.15-1.2) 06/16/23 10:09 AST 36 U/L (0-32) H 06/16/23 10:09 ALT 19 U/L (0-33) 06/16/23 10:09 Alkaline Phosphatase 71 U/L (35-105) 06/16/23 10:09 Troponin T Baseline 106 ng/L (0-10) H* 06/16/23 10:09 Troponin T 120 Minute 103.6 ng/L (0-10) H 06/16/23 12:09 Delta Troponin T -2.4 ABS# (0-10) L 06/16/23 12:09 NT-Pro-B Natriuret Pep 375 pg/mL (0-125) H 06/16/23 10:09 Total Protein 7.0 g/dL (6.6-8.7) 06/16/23 10:09 Albumin 4.1 g/dL (3.5-5.2) 06/16/23 10:09 Globulin 2.9 g/dL (1.3-4.6) 06/16/23 10:09 Influenza Type A Ag positive (Negative) H 06/16/23 11:25 Influenza Type B Ag negative (Negative) 06/16/23 11:25 SARS-CoV-2 Ag (Rapid) negative (Negative) 06/16/23 11:25 All radiology interpretation(s) finalized by discharge EKG Data EKG 1: Interpretation: Twelve-lead EKG obtained at 939 reviewed at 940 demonstrates normal sinus rhythm with a left bundle branch block that was pre-existing. Ventricular rate of 93 bpm RI interval 189 QRS duration 148 QT 386 QTc 437 although there does appear to be ST elevation in V1, V2, V3, and V4 of this twelve-lead EKG this does not appear to be a ST elevated myocardial infarction. At present there is no acute ischemia or infarction. EKG 2: Interpretation: Twelve-lead EKG obtained at 1127 and reviewed at 1130 demonstrates normal sinus rhythm with a left bundle branch block unchanged from previous. Ventricular rate of 89 bpm, RI interval 191, QRS duration 147, QT 404, QTc 451 the EKG is unchanged from previous there is no acute ischemia or infarction at present. Discharge Plan Discharge Patient Disposition: Home Clinical Impression: Influenza A, Anterior chest wall pain Cough Qualifiers: Cough type: acute Qualified Code(s): R05.1 - Acute cough Condition: Stable Prescriptions: New albuterol sulfate 90 mcg/actuation HFA aerosol inhaler 2 inh inhalation Q6H PRN (Reason: shortness of breath or wheezing) Qty: 8.5 0RF prednisone 20 mg tablet 20 mg PO DAILY 5 Days Qty: 5 0RF benzonatate 200 mg capsule 200 mg PO TID Qty: 30 0RF Mucinex 1,200 mg tablet extended release 12hr 1,200 mg PO BID Qty: 21 0RF No Action gabapentin 100 mg capsule 300 mg PO BID omeprazole 20 mg capsule,delayed release(DR/EC) 20 mg PO DAILY (DME) FreeStyle Test Strip See Rx Instructions .Route Qty: 100 3RF Rx Instructions: As directed (DME) pen needle, diabetic [Comfort EZ Pen [place]] 32 gauge x 5/32 needle See Rx Instructions .Route Qty: 400 3RF Rx Instructions: As directed (DME) FreeStyle [place] 2 [place] [facility] [place] See Rx Instructions .Route Qty: 1 0RF Rx Instructions: Check BS 4 times a day. tramadol 50 mg tablet 50 mg PO BID PRN (Reason: Pain) ammonium lactate 5 % lotion 1 applic topical DAILY PRN (Reason: dry skin) Qty: 226 0RF Rx Instructions: Apply small amount to affected area daily (DME) Diabetic Shoes See Rx Instructions .Route .MEDSUPPLY Qty: 1 0RF Rx Instructions: As directed tizanidine 2 mg tablet 2 mg PO Q8H PRN (Reason: Muscle Spasm) (DME) FreeStyle Renny 2 Sensor Kit See Rx Instructions .Route Qty: 6 3RF Rx Instructions: Change every 14 days. Lasix 20 mg tablet 40 mg PO DAILY Qty: 180 1RF nitroglycerin [Nitrostat] 0.4 mg tablet, sublingual 0.4 mg sublingual Q5M PRN (Reason: Chest Pain) Qty: 25 1RF Humulin R U-500 (Conc) Kwikpen 500 unit/mL (3 mL) insulin pen See Rx Instructions .ROUTE .COMPLEX Qty: 18 2RF Dose Instruction: INJECT 90 UNITS SUBCUTANEOUSLY THREE TIMES DAILY BEFORE MEALS Rx Instructions: 100 UNITS IN THE AM- 100 UNITS IN THE AFTERNOON- 30-50 UNITS QPM atorvastatin 80 mg tablet 80 mg PO DAILY Qty: 90 1RF clopidogrel 75 mg tablet 75 mg PO DAILY Qty: 90 3RF Hold Instructions: Resume on 05/10/21. losartan 100 mg tablet 100 mg PO DAILY Qty: 90 1RF aspirin [Linh Low Dose Aspirin] 81 mg Tablet,Delayed Release (Dr/Ec) 81 mg PO DAILY Hold Instructions: Resume on 05/10/21. Ozempic 2 mg/dose (8 mg/3 mL) pen injector 2 mg SUBCUT Q7D Rx Instructions: ON MONDAY Discharge Orders: Discharge ED (Routine); Ordered 06/16/23 Ordered By: Lamont Law Referrals: Jena Lakhani FNP [Primary Care Provider] - Discharge Diet: Advance as tolerated Discharge Activity: Resume usual activity Patient Instructions: Opioid Safety, Pain Management Activity Restrictions/Additional Instructions: Activity Restrictions/Additional Instructions: Thank you for choosing [facility] for your healthcare needs today. Please realize that you were seen in the Emergency Department and that we are providing you with an emergency medical screening exam and this may not be a complete and all inclusive of all the testing and or medical work-up that you may need to determine your ailment or severity of your illness. It is very important that you follow-up as instructed with your Primary care provider or Specialist for additional evaluation and to discuss your medical treatment plan. You may return to the Emergency Department should you have concerns or if your condition changes or worsens in any way. Coding Level of Care Code ED Digital Account Manager for [facility] [place]
--- NOTE | 2023-06-16 11:37 | ECG_ITS ---
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 Measurements Intervals [place] Rate: 89 P: 48 AR: 191 QRS: -7 QRSD: 147 T: 122 QT: 404 QTc: 494 Interpretive Statements SINUS RHYTHM LEFT BUNDLE BRANCH BLOCK [120+ ms QRS DURATION, 80+ ms Q/S IN V1/V2, 85+ ms R IN I/aVL/V5/V6] Compared to ECG 06/16/2023 09:39:46 No significant changes Electronically Signed On 06-16-2023 16:47:35 AUTOMATIC VULCANIZING LEAD OPERATOR by Clinton Smith M.D. [id number]
[2023-06-16 12:13] LABS: Influenza A by IFA positive (Negative); Influenza B by IFA negative (Negative)
[2023-06-16 12:18] VITALS: BP 125/66; PULSE 91; RESP 20; O2SAT 90
[2023-06-16 12:23] LABS: SARS Covid-2 Antigen negative (Negative)
[2023-06-16 12:38] VITALS: BP 144/78; PULSE 96; RESP 13; O2SAT 89
[2023-06-16 13:12] LABS: Troponin 5 2HR 103.6 ng/L (0-10); Troponin 5 2HR Delta -2.4 ABS# (0-10)
[2023-06-16 13:42] VITALS: BP 144/78; PULSE 96; RESP 13; TEMP 37.1; O2SAT 89
== END 2023-06-16 13:43 | disposition home or self-care (01) ==
PROVIDERS: Physician Assistant; Emergency Provider Internal Medicine; PCP Nurse Practitioner Family
DX: J10.1 Influenza due to other identified influenza virus with other respiratory manifestations (principal); R07.89 Other chest pain; Z79.82 Long term (current) use of aspirin; Z79.02 Long term (current) use of antithrombotics/antiplatelets; Z79.4 Long term (current) use of insulin; Z11.52 Encounter for screening for COVID-19; E11.9 Type 2 diabetes mellitus without complications; I10 Essential (primary) hypertension
CPT/HCPCS: 36415; 71045; 80053; 83880; 84484; 85025; 87426; 87804; 93005; 99285

== ENCOUNTER → 2023-08-14 11:50 | Outpatient (BNVA) | payer OTHER, SELFPAY | PROVIDERS: PCP Nurse Practitioner Family; Visit Provider Internal Medicine | DX: E11.65 Type 2 diabetes mellitus with hyperglycemia (principal) | CPT/HCPCS: 36415; 80053; 80061; 82044; 83036 ==

== ENCOUNTER 2023-11-07 09:22 | Outpatient (CLI) | payer OTHER, SELFPAY ==
[2023-11-07 10:17] LABS: Creatinine Urine, Random 210 mg/dL (28-217); Microalbum Creatinine Ratio Ur 14 mg/dL (0-20); Microalbumin Random Urine 3 ug/dL (0-20)
[2023-11-07 10:20] LABS: Alanine Aminotransferase 18 U/L (0-33); Albumin Level 4.3 g/dL (3.5-5.2); Alkaline Phosphatase 65 U/L (35-105); Anion Gap 17.1 (5-19); Aspartate Amino Transferase 22 U/L (0-32); Blood Urea Nitrogen 23 mg/dL (8-23); Carbon Dioxide 22 mmol/L (22-29); Chloride 101 mmol/L (98-107); Chol HDL Ratio 3.91 mg/dL (0.0-4.40); Cholesterol 125 mg/dL (0-200); Globulin 3.3 g/dL (1.3-4.6); Glomerular Filtration Rate 45.4 mL/min (90-130); Glucose 261 mg/dL (65-115); HDL Cholesterol 32 mg/dL (60-100); LDL Cholesterol Calculated 55 mg/dL (50-129); LDL HDL Ratio 1.72 RATIO (0.00-3.22); Osmolality Calculated 295 mOsm/kg (285-295); Potassium 4.1 mmol/L (3.5-5.1); Sodium 136 mmol/L (136-145); Total Bilirubin 0.3 mg/dL (0.15-1.2); Total Protein 7.6 g/dL (6.6-8.7); Triglycerides 189 mg/dL (0-150)
[2023-11-07 11:29] LABS: Estmated Average Glucose 192; Hemoglobin A1C 8.3 % (4.0-6.0)
== END 2023-11-07 09:23 | disposition home or self-care (01) ==
PROVIDERS: PCP Nurse Practitioner Family; Visit Provider Internal Medicine
DX: E11.65 Type 2 diabetes mellitus with hyperglycemia (principal)
CPT/HCPCS: 36415; 80053; 80061; 82044; 83036

== ENCOUNTER → 2023-12-05 14:31 | Outpatient (BNVA) | payer OTHER, SELFPAY | PROVIDERS: PCP Nurse Practitioner Family; Visit Provider Internal Medicine Cardiovascular Disease | DX: R06.02 Shortness of breath (principal) | CPT/HCPCS: 36415; 80048; 83880 ==

== ENCOUNTER 2024-01-29 10:51 | Outpatient (CLI) | payer OTHER, SELFPAY ==
--- NOTE | 2024-01-29 11:15 | USCV_ITS ---
Rachel Malhotra Age: 63 Gender: F : 1960 Exam Date: 01/29/2024 11:13 Ordering Phys: Clinton Smith MD ([email or web address]) Technologist: CT Exam Location: [facility] [place] Indication: murmur BP: 118 / 70 HR: 78 Rhythm: Sinus Technical Quality: Adequate MEASUREMENTS (Male / Female) Normal Values 2D ECHO LVOT Diameter 2.0 cm LV Ejection Fraction MOD 4C 64.2 % LV Ejection Fraction MOD 2C 46.6 % LV Ejection Fraction 2C AL 45.5 % LA Diameter 3.9 cm RA Systolic Volume 4C AL 55.1 ml RA Systolic Volume 4C MOD 57.0 ml LA Sys Volume AL 69.8 cm cubed LA Sys Volume Index AL 28.7 cm cubed/m squared Aorta at Sinotubular Diameter 2.5 cm IVC Diameter 2.0 cm M-MODE LA Ao Ratio MM 1.8 AV Cusp Separation MM 1.8 cm DOPPLER AV Peak Velocity 146.0 cm/s LVOT Peak Velocity 94.0 cm/s AV Area Cont Eq vti 1.9 cm squared AV Area Cont Eq pk 2.0 cm squared MV Peak Velocity 165.0 cm/s MV Area PHT 4.5 cm squared Mitral E to A Ratio 1.3 TR Peak Velocity 274.0 cm/s TR Peak Gradient 30.0 mmHg TV Peak E Velocity 68.0 cm/s Right Atrial Pressure 3.0 mmHg Pulmonary Artery Systolic Pressu 33.0 mmHg PV Peak Velocity 102.0 cm/s FINDINGS Left Ventricle Normal left ventricular size and systolic function, EF 64% . Mild left ventricular hypertrophy. Grade III/IV diastolic dysfunction (restrictive filling pattern), severely elevated filling pressures. Right Ventricle The right ventricle is normal in size and function. Right Atrium The right atrium is normal in size. Left Atrium Mildly increased left atrial size. Mitral Valve Moderate mitral annular calcification.Mild mitral valve regurgitation. Mobile elongated, echodense structure, measuring 2.2 x 0.45 cm, attached to the posterior mitral annulus, on the atrial side Aortic Valve No gross abnormalities Tricuspid Valve [id number] tricuspid valve regurgitation. Pulmonic Valve Mild pulmonary valve regurgitation. Pericardium Normal pericardium without effusion. Aorta Normal ascending aorta dimension. IVC Normal inferior vena cava. CONCLUSIONS Normal left ventricular size and systolic function, EF 64% . Mild left ventricular hypertrophy. Grade III/IV diastolic dysfunction (restrictive filling pattern), severely elevated filling pressures. Mobile echodense structure on the atrial side of the posterior mitral annulus, measuring 2.2 x 0.45 cm, may suggest a vegetation or other soft tissue mass Mildly increased left atrial size. Moderate mitral annular calcification.Mild mitral valve regurgitation. [id number] tricuspid valve regurgitation. Mild pulmonary valve regurgitation. Estimated PA pressure of 33 mmHg There is no pericardial effusion. There are no intracardiac masses. No similar previous studies are available for comparison. Consider REZA to better evaluate the atrial mass Revised copy of the study from 01/29/2024 Dr Clinton Smith MD [facility] (Electronically Signed) Final Date: 02 February 2024 13:50 Amended: 02 February 2024 14:37 C
== END 2024-01-29 10:52 | disposition home or self-care (01) ==
LOC: RAD 10:52
PROVIDERS: PCP Nurse Practitioner Family; Visit Provider Internal Medicine Cardiovascular Disease
DX: I50.30 Unspecified diastolic (congestive) heart failure (principal); I34.81 Nonrheumatic mitral (valve) annulus calcification; I07.1 Rheumatic tricuspid insufficiency; R06.09 Other forms of dyspnea
CPT/HCPCS: 93306

== ENCOUNTER 2025-03-05 11:21 | Outpatient (CLI) | payer MEDICARE, SELFPAY ==
[2025-03-05 13:02] LABS: Creatinine Urine, Random 109 mg/dL (28-217); Microalbum Creatinine Ratio Ur 9 mg/dL (0-20)
[2025-03-05 13:04] LABS: Estmated Average Glucose 192; Hemoglobin A1C 8.3 % (4.0-6.0)
[2025-03-05 13:08] LABS: Alanine Aminotransferase 13 U/L (0-33); Albumin Level 4.4 g/dL (3.5-5.2); Alkaline Phosphatase 59 U/L (35-105); Anion Gap 15.1 (5-19); Aspartate Amino Transferase 15 U/L (0-32); Blood Urea Nitrogen 31 mg/dL (8-23); Calcium 10.2 mg/dL (8.5-10.5); Carbon Dioxide 25 mmol/L (22-29); Chloride 102 mmol/L (98-107); Cholesterol 123 mg/dL (0-200); Globulin 3.3 g/dL (1.3-4.6); Glucose 149 mg/dL (65-115); HDL Cholesterol 33 mg/dL (60-100); Osmolality Calculated 295 mOsm/kg (285-295); Potassium 4.1 mmol/L (3.5-5.1); Sodium 138 mmol/L (136-145); Total Protein 7.7 g/dL (6.6-8.7); Triglycerides 120 mg/dL (0-150)
== END 2025-03-05 11:22 | disposition home or self-care (01) ==
LOC: LAB 11:29
PROVIDERS: PCP Nurse Practitioner Family; Visit Provider Internal Medicine
DX: E11.65 Type 2 diabetes mellitus with hyperglycemia (principal); E11.22 Type 2 diabetes mellitus with diabetic chronic kidney disease
CPT/HCPCS: 36415; 80048; 80053; 80061; 82044; 83036

== ENCOUNTER → 2025-03-14 10:19 | Outpatient (BNVA) | payer MEDICARE, SELFPAY | PROVIDERS: PCP Nurse Practitioner Family; Visit Provider Internal Medicine | DX: E11.65 Type 2 diabetes mellitus with hyperglycemia (principal); E11.59 Type 2 diabetes mellitus with other circulatory complications; I25.10 Atherosclerotic heart disease of native coronary artery without angina pectoris; E11.22 Type 2 diabetes mellitus with diabetic chronic kidney disease; N18.9 Chronic kidney disease, unspecified; E11.319 Type 2 diabetes mellitus with unspecified diabetic retinopathy without macular edema; E78.2 Mixed hyperlipidemia | CPT/HCPCS: 99214 ==

== ENCOUNTER → 2025-03-31 09:41 | Outpatient (BNVA) | payer MEDICARE, SELFPAY | PROVIDERS: PCP Nurse Practitioner Family; Referring Provider Nurse Practitioner Family; Visit Provider Dermatology | DX: S00.401A Unspecified superficial injury of right ear, initial encounter (principal); X58.XXXA Exposure to other specified factors, initial encounter; L57.8 Other skin changes due to chronic exposure to nonionizing radiation; L82.1 Other seborrheic keratosis; L81.4 Other melanin hyperpigmentation; D18.01 Hemangioma of skin and subcutaneous tissue; L82.0 Inflamed seborrheic keratosis; L29.89 Other pruritus; L53.8 Other specified erythematous conditions; Z78.9 Other specified health status; R20.8 Other disturbances of skin sensation; L57.0 Actinic keratosis | CPT/HCPCS: 17000; 17110; 99203 ==

== ENCOUNTER → 2025-04-03 13:56 | Outpatient (BNVA) | payer MEDICARE, SELFPAY | PROVIDERS: PCP Nurse Practitioner Family; Visit Provider Podiatrist Foot & Ankle Surgery | DX: E11.42 Type 2 diabetes mellitus with diabetic polyneuropathy (principal); B35.1 Tinea unguium; G62.9 Polyneuropathy, unspecified; M20.42 Other hammer toe(s) (acquired), left foot; M20.41 Other hammer toe(s) (acquired), right foot; L84 Corns and callosities; E11.22 Type 2 diabetes mellitus with diabetic chronic kidney disease; Z79.4 Long term (current) use of insulin; Z79.85 Long-term (current) use of injectable non-insulin antidiabetic drugs | CPT/HCPCS: 11721 ==

== ENCOUNTER → 2025-05-16 11:34 | Outpatient (BNVA) | payer MEDICARE, SELFPAY | PROVIDERS: PCP Nurse Practitioner Family; Visit Provider Internal Medicine Cardiovascular Disease | DX: I25.10 Atherosclerotic heart disease of native coronary artery without angina pectoris (principal); I51.89 Other ill-defined heart diseases; I10 Essential (primary) hypertension | CPT/HCPCS: 99214 ==